=== PATIENT | female | born 1975 | race Two or more races ===

== ENCOUNTER 2020-06-22 15:53 | Outpatient (REF) | payer OTHER, SELFPAY ==
--- NOTE | 2020-06-22 | MM_ITS ---
EXAMINATION: MM SCREENING DIGITAL BREAST TOMOSYNTHESIS, BILATERAL CLINICAL INFORMATION: Screening. Asymptomatic. The lifetime risk of breast cancer based on the Tyrer-Cuzick Model is 7%. COMPARISON: Mammography: 06/17/2019, 06/05/2018, 04/11/2017 11/13/2016, 03/13/2016 TECHNIQUE: Digital breast tomosynthesis is performed in both the craniocaudal and mediolateral oblique views along with computer-aided detection (CAD). Synthesized 2D images are generated from the tomosynthesis. FINDINGS: There are scattered areas of fibroglandular density (ACR BI-RADS breast composition Category b). There are no significant masses, abnormal calcifications, or other abnormalities. Parenchymal pattern is similar to prior exams. Parenchymal asymmetries are stable. There is no developing density. MM/MM tomosynthesis screening BI IMPRESSION: No significant changes from prior studies. ASSESSMENT: BI-RADS 2: Benign RECOMMENDATION: Routine annual mammography screening. This patient's information was entered into a reminder system with a target due date for their next mammogram.
== END 2020-06-22 15:54 | disposition home or self-care (01) ==
LOC: HO.MAMMO 15:53
PROVIDERS: Visit Provider Internal Medicine
DX: Z12.31 Encounter for screening mammogram for malignant neoplasm of breast (principal)
CPT/HCPCS: 77063; 77067

== ENCOUNTER 2020-06-24 16:41 | Outpatient (REF) | payer OTHER, SELFPAY ==
[2020-06-24 17:48] LABS: MANUAL DIFF FLAG NO
[2020-06-24 17:49] LABS: Basophils Percent Auto 0.4 % (0-2); Eosinophils Percent Auto 0.7 % (0-4); Hemoglobin 11.7 g/dl (12.0-16.0); Imm Gran Abs Auto 0.01 X10*3/uL (0.00-0.03); Imm Gran Pct Auto 0.4 % (0.0-0.4); Lymphocytes Absolute Auto 0.9 X10*3/uL (1.2-4.9); Lymphocytes Percent Auto 32.5 % (20-40); Mean Corpuscular HGB Conc 32.5 g/dl (31.0-35.0); Mean Corpuscular Volume 89.1 fL (80-98); Monocytes Absolute Auto 0.2 X10*3/uL (0.1-1.2); Monocytes Percent Auto 7.6 % (2-11); Neutrophils Absolute Auto 1.6 X10*3/uL (2.0-8.3); Neutrophils Percent Auto 58.4 % (45-73); Platelet Count 190 X10*3/uL (160-400); Red Blood Count 4.04 X10*6/uL (4.20-5.50); Red Cell Distribution Width 13.2 % (11.0-16.0); White Blood Count 2.8 X10*3/uL (4.8-10.8)
[2020-06-24 18:17] LABS: Alanine Aminotransferase 29 U/L (0-31); Alkaline Phosphatase 62 U/L (39-117); Anion Gap 12 (12-20); Aspartate Amino Transferase 35 U/L (5-31); Bilirubin Total 0.5 mg/dL (0.0-1.0); Blood Urea Nitrogen 12 mg/dL (9-16); C Reactive Protein 0.19 mg/dL (< or = 0.50); Calcium 8.4 mg/dL (8.4-10.2); Carbon Dioxide 24 mmol/L (22-29); Chloride 105 mmol/L (96-108); Estimated Glomerular Filt Rate > 60; Glucose Random 78 mg/dL (60-115); Potassium 3.9 mmol/l (3.3-5.1); Sodium 137 mmol/L (135-145); Total Protein 7.1 g/dL (6.5-8.0)
[2020-06-24 19:29] LABS: Erythrocyte Sedimentation Rate 22 MM/HR (0-20)
[2020-06-25 13:32] LABS: Complement C3 112 mg/dL (83-193)
== END 2020-06-24 16:42 | disposition home or self-care (01) ==
LOC: HO.LABR 16:41
PROVIDERS: PCP Internal Medicine; Visit Provider Internal Medicine Rheumatology
DX: M32.19 Other organ or system involvement in systemic lupus erythematosus (principal); Z79.899 Other long term (current) drug therapy
CPT/HCPCS: 36415; 80053; 85025; 85652; 86140; 86160

== ENCOUNTER 2020-08-23 14:33 | Outpatient (REF) | payer OTHER, SELFPAY ==
[2020-08-24 08:28] LABS: BV Int Neg Control Negative (Negative); BV Int Pos Control Positive (Positive)
== END 2020-08-23 14:34 | disposition home or self-care (01) ==
LOC: HO.LAB 14:33
PROVIDERS: PCP Internal Medicine; Referring Provider Internal Medicine; Visit Provider Obstetrics & Gynecology
DX: Z01.419 Encounter for gynecological examination (general) (routine) without abnormal findings (principal); N89.8 Other specified noninflammatory disorders of vagina
CPT/HCPCS: 81003; 87480; 87510; 87660

== ENCOUNTER 2020-09-16 | Outpatient (REF) | payer OTHER, SELFPAY ==
[2020-09-16 19:30] LABS: Erythrocyte Sedimentation Rate 17 MM/HR (0-20)
[2020-09-20 21:02] LABS: Complement C3 105 mg/dL (83-193)
== END 2020-09-16 00:01 ==
LOC: HO.LABR
PROVIDERS: Visit Provider Internal Medicine Rheumatology
DX: M32.19 Other organ or system involvement in systemic lupus erythematosus (principal); Z79.899 Other long term (current) drug therapy
CPT/HCPCS: 36415; 85652; 86160

== ENCOUNTER 2020-10-09 09:32 | Outpatient (REF) | payer OTHER, SELFPAY ==
[2020-10-09 09:51] LABS: MANUAL DIFF FLAG NO
[2020-10-09 10:02] LABS: Eosinophils Percent Auto 0.4 % (0-4); Hematocrit 40.1 % (37-47); Hemoglobin 13.5 g/dl (12.0-16.0); Lymphocytes Absolute Auto 0.8 X10*3/uL (1.2-4.9); Lymphocytes Percent Auto 27.6 % (20-40); Mean Corpuscular HGB Conc 33.7 g/dl (31.0-35.0); Mean Corpuscular Hemoglobin 30.6 pg (27.0-33.0); Mean Corpuscular Volume 90.9 fL (80-98); Mean Platelet Volume 9.8 fL (9.4-12.3); Monocytes Absolute Auto 0.2 X10*3/uL (0.1-1.2); Monocytes Percent Auto 8.2 % (2-11); Neutrophils Absolute Auto 1.8 X10*3/uL (2.0-8.3); Neutrophils Percent Auto 63.8 % (45-73); Platelet Count 154 X10*3/uL (160-400); Red Blood Count 4.41 X10*6/uL (4.20-5.50); Red Cell Distribution Width 11.8 % (11.0-16.0); White Blood Count 2.8 X10*3/uL (4.8-10.8)
[2020-10-09 10:34] LABS: Alanine Aminotransferase 16 U/L (0-31); Albumin Level 3.9 g/dL (3.5-5.0); Alkaline Phosphatase 64 U/L (39-117); Anion Gap 10 (12-20); Aspartate Amino Transferase 23 U/L (5-31); Bilirubin Total 0.7 mg/dL (0.0-1.0); Blood Urea Nitrogen 18 mg/dL (9-16); C Reactive Protein 0.27 mg/dL (< or = 0.50); Calcium 8.7 mg/dL (8.4-10.2); Carbon Dioxide 26 mmol/L (22-29); Chloride 108 mmol/L (96-108); Estimated Glomerular Filt Rate > 60; Potassium 4.2 mmol/L (3.3-5.1); Sodium 140 mmol/L (135-145); Total Protein 6.9 g/dL (6.5-8.0)
[2020-10-09 11:52] LABS: Glucose Random 57 mg/dL (60-115)
[2020-10-09 14:05] LABS: Estimated Average Glucose 97 mg/dL
== END 2020-10-09 09:33 | disposition home or self-care (01) ==
LOC: HO.LABR 09:32
PROVIDERS: PCP Internal Medicine; Visit Provider Internal Medicine Rheumatology
DX: M32.19 Other organ or system involvement in systemic lupus erythematosus (principal); Z79.899 Other long term (current) drug therapy
CPT/HCPCS: 36415; 80053; 83036; 85025; 86140

== ENCOUNTER 2020-12-22 15:19 | Outpatient (REF) | payer OTHER, SELFPAY ==
[2020-12-22 16:04] LABS: MANUAL DIFF FLAG NO
[2020-12-22 16:08] LABS: Hematocrit 35.9 % (37-47); Hemoglobin 11.8 g/dl (12.0-16.0); Lymphocytes Absolute Auto 0.9 X10*3/uL (1.2-4.9); Lymphocytes Percent Auto 29.6 % (20-40); Mean Corpuscular HGB Conc 32.9 g/dl (31.0-35.0); Mean Corpuscular Hemoglobin 29.8 pg (27.0-33.0); Mean Corpuscular Volume 90.7 fL (80-98); Mean Platelet Volume 9.5 fL (9.4-12.3); Monocytes Absolute Auto 0.3 X10*3/uL (0.1-1.2); Monocytes Percent Auto 8.7 % (2-11); Neutrophils Absolute Auto 1.7 X10*3/uL (2.0-8.3); Neutrophils Percent Auto 60.7 % (45-73); Platelet Count 192 X10*3/uL (160-400); Red Blood Count 3.96 X10*6/uL (4.20-5.50); Red Cell Distribution Width 11.5 % (11.0-16.0); White Blood Count 2.9 X10*3/uL (4.8-10.8)
[2020-12-22 16:28] LABS: Alanine Aminotransferase 24 U/L (0-31); Albumin Level 3.9 g/dL (3.5-5.0); Alkaline Phosphatase 68 U/L (39-117); Anion Gap 12 (12-20); Aspartate Amino Transferase 26 U/L (5-31); Bilirubin Total 0.5 mg/dL (0.0-1.0); Blood Urea Nitrogen 17 mg/dL (9-16); C Reactive Protein 0.19 mg/dL (< or = 0.50); Carbon Dioxide 26 mmol/L (22-29); Chloride 104 mmol/L (96-108); Estimated Glomerular Filt Rate > 60; Glucose Random 71 mg/dL (60-115); Potassium 3.8 mmol/L (3.3-5.1); Sodium 138 mmol/L (135-145); Total Protein 6.7 g/dL (6.5-8.0)
[2020-12-22 16:54] LABS: Erythrocyte Sedimentation Rate 17 MM/HR (0-20)
[2020-12-23 11:27] LABS: Complement C3 101 mg/dL (83-193)
== END 2020-12-22 15:20 | disposition home or self-care (01) ==
LOC: HO.LABR 15:19
PROVIDERS: PCP Internal Medicine; Visit Provider Internal Medicine Rheumatology
DX: M32.19 Other organ or system involvement in systemic lupus erythematosus (principal); Z79.899 Other long term (current) drug therapy
CPT/HCPCS: 36415; 80053; 85025; 85652; 86140; 86160

== ENCOUNTER 2021-01-05 09:13 | Outpatient (REF) | payer OTHER, SELFPAY ==
[2021-01-05 10:25] LABS: Glucose Urine UA NEG (NEG); Leukocyte Esterase Urine 1+ (NEG); Nitrite Urine POS (NEG); UACC Culture Trigger YES; Urine Blood TRACE (NEG); Urine Ketones NEG (NEG); Urine Protein NEG (NEG-TRACE)
[2021-01-05 10:28] LABS: Appearance Urine HAZY; Color Urine YELLOW
[2021-01-05 11:11] LABS: Bacteria Urine 4+ /LPF; RBC Urine 0-2 /HPF (0); Renal Epithelial Cells Urine TRACE /LPF; Squamous Epithelial Cell Urine TRACE /LPF; WBC Clumps Urine NOTED; WBC Urine 30-49 /HPF (0-4)
== END 2021-01-05 09:14 | disposition home or self-care (01) ==
LOC: HO.LAB 09:13
PROVIDERS: PCP Internal Medicine; Visit Provider Internal Medicine
DX: R30.0 Dysuria (principal)
CPT/HCPCS: 81001; 81003; 87086; 87088; 87186

== ENCOUNTER 2021-07-13 16:41 | Outpatient (REF) | payer OTHER, SELFPAY ==
[2021-07-13 17:16] LABS: Eosinophils Percent Auto 0.8 % (0-4); Hematocrit 34.8 % (37.0-47.0); Hemoglobin 11.4 g/dl (12.0-16.0); Lymphocytes Absolute Auto 0.9 X10*3/uL (1.2-4.9); Lymphocytes Percent Auto 36.1 % (20-40); MANUAL DIFF FLAG SCAN; Mean Corpuscular HGB Conc 32.8 g/dl (31.0-35.0); Mean Corpuscular Hemoglobin 28.9 pg (27.0-33.0); Mean Corpuscular Volume 88.1 fL (80.0-98.0); Mean Platelet Volume 9.6 fL (9.4-12.3); Monocytes Absolute Auto 0.3 X10*3/uL (0.1-1.2); Monocytes Percent Auto 10.7 % (2-11); Neutrophils Absolute Auto 1.3 x10*3/uL (2.0-8.3); Neutrophils Percent Auto 52.4 % (45-73); Platelet Count 192 X10*3/uL (160-400); Red Blood Count 3.95 X10*6/uL (4.20-5.50); Red Cell Distribution Width 11.9 % (11.0-16.0); SCAN SMEAR FLAG 1
[2021-07-13 17:48] LABS: Alanine Aminotransferase 46 U/L (0-31); Alkaline Phosphatase 67 U/L (39-117); Anion Gap 8 (12-20); Aspartate Amino Transferase 34 U/L (5-31); Bilirubin Total 0.4 mg/dL (0.0-1.0); Blood Urea Nitrogen 15 mg/dL (9-16); C Reactive Protein 0.24 mg/dL (< or = 0.50); Calcium 9.2 mg/dL (8.4-10.2); Carbon Dioxide 26 mmol/L (22-29); Chloride 108 mmol/L (96-108); Estimated Glomerular Filt Rate > 60; Glucose Random 89 mg/dL (60-115); Potassium 3.6 mmol/L (3.3-5.1); Sodium 138 mmol/L (135-145)
[2021-07-13 17:54] LABS: White Blood Count 2.4 X10*3/uL (4.8-10.8)
[2021-07-13 18:21] LABS: Erythrocyte Sedimentation Rate 28 MM/HR (0-20)
[2021-07-13 18:50] LABS: SLIDE REVIEW VERIFIED
[2021-07-14 13:55] LABS: Complement C3 106 mg/dL (83-193)
[2021-07-20 11:55] LABS: DNAds, Crithidia Antibody Negative (Negative)
== END 2021-07-13 16:42 | disposition home or self-care (01) ==
LOC: HO.LAB 16:41
PROVIDERS: PCP Internal Medicine; Visit Provider Internal Medicine Rheumatology
DX: M32.19 Other organ or system involvement in systemic lupus erythematosus (principal); D70.8 Other neutropenia; Z79.899 Other long term (current) drug therapy
CPT/HCPCS: 36415; 80053; 85025; 85652; 86140; 86160; 86255

== ENCOUNTER 2021-07-26 15:34 | Outpatient (REF) | payer OTHER, SELFPAY ==
--- NOTE | ~2021-07-26 | MM_ITS ---
EXAMINATION: MM SCREENING DIGITAL BREAST TOMOSYNTHESIS, BILATERAL CLINICAL INFORMATION: Screening. Asymptomatic. The lifetime risk of breast cancer based on the Tyrer-Cuzick Model is 5.8%. COMPARISON: Mammography: 06/22/2020 and studies dating back to 10/19/2010 TECHNIQUE: Digital breast tomosynthesis is performed in both the craniocaudal and mediolateral oblique views along with computer-aided detection (CAD). Synthesized 2-D images are generated from the tomosynthesis. FINDINGS: There are scattered areas of fibroglandular density (ACR BI-RADS breast composition Category b). There is a stable parenchymal pattern within the left breast with no new abnormal dominant mass or suspicious grouping of microcalcifications. Within the superior aspect of the right breast approximately 8 cm from nipple, there is a region of architectural distortion which is slightly more prominent than on prior studies and for which spot compression view and possible ultrasound is recommended. MM/MM tomosynthesis screening BI IMPRESSION: Asymmetric density superior aspect of the right breast for further evaluation. ASSESSMENT: BI-RADS 0: Incomplete - Need Additional Imaging Evaluation. RECOMMENDATION: 1. Additional views of the right breast. 2. Targeted ultrasound if warranted after review of the additional views. 3. Radiology department staff will contact the patient for additional imaging.
== END 2021-07-26 15:35 | disposition home or self-care (01) ==
LOC: HO.MAMMO 15:34
PROVIDERS: Visit Provider Internal Medicine
DX: Z12.31 Encounter for screening mammogram for malignant neoplasm of breast (principal)
CPT/HCPCS: 77063; 77067

== ENCOUNTER 2021-08-05 10:20 | Outpatient (REF) | payer OTHER, SELFPAY ==
--- NOTE | ~2021-08-05 | US_ITS ---
EXAMINATION: US DIAGNOSTIC ULTRASOUND BREAST, RIGHT CLINICAL INFORMATION: Asymmetric density. COMPARISON: Mammography of same day and studies dating back to April 17, 2011. Ultrasound examination of October 19, 2010. TECHNIQUE: Ultrasound of the breast is performed with real-time vick scale imaging and color Doppler. FINDINGS: Targeted right breast ultrasound evaluation of did not demonstrate any abnormal cystic or solid mass. No region of abnormal distal sound shadowing appreciated. No edematous change within the tissues is seen. Results are discussed with the patient at time of visit. US/US breast RT limited IMPRESSION: Stable appearance of the right breast with no specific mammographic or ultrasound findings to suggest malignancy. ASSESSMENT: BI-RADS 1: Negative RECOMMENDATION: Routine annual mammography screening. This patient's information was entered into a reminder system with a target due date for their next mammogram.
--- NOTE | ~2021-08-05 | MM_ITS ---
EXAMINATION: MM DIAGNOSTIC DIGITAL BREAST TOMOSYNTHESIS, RIGHT CLINICAL INFORMATION: Asymmetric density superior aspect right breast COMPARISON: Mammography: 07/26/2021 and studies dating back to 04/17/2011 TECHNIQUE: Digital breast tomosynthesis is performed. 2D images are generated from the tomosynthesis. The following views are obtained: Full-field 90 degree mediolateral view as well as spot compression craniocaudal and mediolateral oblique projections. FINDINGS: There are scattered areas of fibroglandular density (ACR BI-RADS breast composition Category b). There is partial effacement of the density present giving it the appearance similar to previous studies. There remains some dense parenchyma present. Targeted right breast ultrasound evaluation did not demonstrate any abnormal cystic or solid mass. No region of abnormal distal sound shadowing appreciated. No edematous change within the tissues is seen. Results are discussed with the patient at time of visit. MM/MM tomosynthesis added views R IMPRESSION: Stable appearance of the right breast with no specific mammographic or ultrasound findings to suggest malignancy. ASSESSMENT: BI-RADS 1: Negative RECOMMENDATION: Routine annual mammography screening. This patient's information was entered into a reminder system with a target due date for their next mammogram.
== END 2021-08-05 10:21 | disposition home or self-care (01) ==
LOC: HO.MAMMO 10:20
PROVIDERS: Visit Provider Internal Medicine
DX: R92.2 Inconclusive mammogram (principal)
CPT/HCPCS: 76642; 77061; 77065

== ENCOUNTER 2021-08-15 09:16 | Emergency (ER) | payer OTHER, SELFPAY ==
--- NOTE | ~2021-08-15 | CT_ITS ---
EXAMINATION: CT ABDOMEN AND PELVIS WITHOUT CONTRAST CLINICAL INFORMATION: Left flank pain. History of urinary tract infection. COMPARISON: None TECHNIQUE: Multidetector volumetric imaging was performed from the superior aspect of the liver through the pubic symphysis. Sagittal and coronal reformatted images were obtained on the technologist's workstation. This CT examination was performed using dose optimization techniques as appropriate, variously including the following: *Automated exposure control *Adjustment of mA and/or kV according to patient size (this includes techniques or standardized protocols for targeted exams where dose is matched to indication/reason for exam; i.e. extremities or head) *Use of iterative reconstruction technique DLP: 434 mGy-cm FINDINGS: LUNG BASES: The visualized lung bases are unremarkable. LIVER, GALLBLADDER, AND BILIARY TREE: The liver is normal in size, shape, and attenuation. No focal hepatic lesion or biliary ductal dilatation is present. The gallbladder is unremarkable with no evidence of radiopaque gallstones, gallbladder wall thickening, or obvious pericholecystic inflammatory changes. PANCREAS: Unremarkable. SPLEEN: Unremarkable. ADRENAL GLANDS: Unremarkable. KIDNEYS AND URETERS: The left kidney is larger than the right. The left kidney measures 11.2 and the right 8.5 cm in length. There is fat stranding seen surrounding the left kidney. Findings are questionable for left sided pyelonephritis. No left renal or ureteral stone or hydronephrosis is seen. There is question of a tiny 1 mm stone in the upper pole of the left kidney. BLADDER: Not optimally distended. GASTROINTESTINAL TRACT: The small and large bowel are unremarkable. The appendix is unremarkable. ABDOMINAL WALL: No significant hernia is appreciated. LYMPH NODES: There are small retroperitoneal lymph nodes. No enlarged lymph nodes are seen. There is no ascites. VASCULAR: Unremarkable. PELVIC VISCERA: Unremarkable. OSSEOUS STRUCTURES: There is a 1 cm sclerotic lesion in the L3 vertebral body probably representing a bone island. CT/CT abdomen pelvis wo IV con IMPRESSION: The left kidney is larger than the right and there is asymmetric left perinephric fat stranding. Findings are questionable for pyelonephritis. No left renal stone or hydronephrosis seen. Question tiny 1 mm right upper pole renal stone. Fleischner guidelines were followed.
[2021-08-15 09:49] VITALS: BP 128/98; PULSE 116; RESP 18; TEMP 37.7; O2SAT 100; BMI 23.9
--- NOTE | 2021-08-15 09:49 | ED_ITS ---
HPI - Abdominal Pain General Chief Complaint: Abdominal Pain Stated Complaint: L SIDE PAIN Time Seen by Provider: 08/15/21 09:48 Source: patient Mode of arrival: ambulatory Limitations: no limitations History of Present Illness HPI narrative: 46-year-old female currently on Macrobid for UTI started on Sunday by Urgent Care presenting to the ED with complaints of left abdominal/ left flank / left back pain worsened after she started the Macrobid on Sunday. Reports associated cloudy/ fall order to urine and white colored discharge. Also reports intermittent lightheadedness, subjective fever/chills and nausea. Denies any measured fevers, changes in vision, neck pain /stiffness, chest pain or shortness of breath, paresthesias, dyspnea on exertion, orthopnea, palpitations, vomiting, thoughts of STD, hematuria, urinary incontinence or retention, bowel incontinence or retention, rashes, recent falls or trauma or any other symptoms complaints or concerns at this time. MD elicited complaint: abdominal pain and flank pain Pertinent past history: other ( Currently diagnosed with UTI on Macrobid since Sunday) Onset (ago): day(s) (2) Pain Consistency: constant Location: LUQ, LLQ and L flank Severity: moderate Quality: aching and sharp Radiation: back Exacerbating factors: other ( urination) Relieving factors: nothing Associated symptoms: nausea, fever ( subjective), chills and dysuria Related Data Home Medications Medication Instructions Recorded Confirmed cyanocobalamin (vitamin B-12) 1,000 mcg PO DAILY 08/23/20 1,000 mcg tablet ferrous sulfate 325 mg (65 mg 325 mg PO BID 08/23/20 iron) tablet hydroxychloroquine 200 mg tablet 200 mg PO BID 08/23/20 (Plaquenil) Previous Rx's Medication Instructions Recorded amoxicillin 500 mg tablet 500 mg PO BID 7 Days #14 tab 07/23/20 metronidazole 500 mg tablet 500 mg PO BID 7 Days #14 tab 08/24/20 (Flagyl) metronidazole 500 mg tablet 500 mg PO BID 7 Days #14 tab 09/15/20 (Flagyl) sulfamethoxazole 800 1 tab PO BID #14 tab 01/06/21 mg-trimethoprim 160 mg tablet (Bactrim DS) acetaminophen 500 mg tablet 1,000 mg PO QID PRN #14 tab 08/15/21 (Tylenol Extra Strength) cefpodoxime 200 mg tablet 200 mg PO BID 14 Days #28 tab 08/15/21 ibuprofen 800 mg tablet 800 mg PO Q8H PRN #14 tab 08/15/21 ondansetron HCl 4 mg tablet 4 mg PO Q8H PRN #14 tab 08/15/21 (Zofran) Allergies Allergy/AdvReac Type Severity Reaction Status Date / Time No Known Allergies Allergy Verified 08/23/20 14:48 Review of Systems Review of Systems Constitutional : + Subjective Fever, + Chills, No Night Sweats, No Fatigue, No Malaise Cardiovascular : No Chest Pain, No SOB Respiratory : No Cough, No Sputum, No Wheezing, No Dyspnea Gastrointestinal : + Nausea, + abd pain, No Vomiting, No Diarrhea, No Hematochezia, No Melena Genitourinary : + Flank pain, + Dysuria, No irregular bleeding, No Urinary Frequency, No Hematuria,No Urinary Incontinence, No Urgency Musculoskeletal : No joint pain, No Myalgias, No Joint Swelling Skin : No Skin Lesions, No rash Neuro : No Weakness, No Numbness, No Paresthesias, No Loss of Consciousness, No Dizziness, No Headache Heme/Lymph: No Lymphadenopathy Endocrine : No Temperature Intolerance denies any thoughts of STDs. Yes all other systems are reviewed and are negative Physical Exam Vital Signs: Vital Signs: Last Vital Signs Temp 98.2 F 08/15/21 13:36 Pulse 87 08/15/21 13:36 Resp 18 08/15/21 13:36 BP 108/64 08/15/21 13:36 Pulse Ox 99 08/15/21 13:36 BMI result Body Mass Index 23.9 vital signs have been reviewed as normal and appeared to be correct. Blood pressure 128/98. Heart rate 116 Respiration rate normal. Temperature normal. Oxygen saturation normal. Appearance: Alert. Oriented X3. No acute distress. Head: Normal external exam. Normocephalic. Eyes: PERRLA. EOMI. Conjunctiva and sclera normal. Eyelids normal. ENT: Pharynx normal. Uvula midline. Moist mucous membranes. No trismus noted. No drooling noted. No muffled voice noted. Neck: Normal inspection. Neck supple. FROM. No adenopathy. No meningeal signs. CVS: Normal heart rate and rhythm. Heart sound normal. No murmurs noted. Pulses normal throughout. Respiratory: No respiratory distress. Painless inspiration. Breath sounds normal. No wheezes/rales/rhonchi noted. Chest nontender. No accessory muscle usage noted or decreased air movement noted. Abdomen: Soft and mild tenderness up patient to left upper quadrant/ left lower quadrant/ left flank. Nondistended. No guarding. No rigidity. Bowel sounds normal in all 4 quadrants. No distention noted. No organomegaly noted. No visible injury noted. No rebound tenderness. Negative Rovsing sign. Negative obturator's sign. Negative psoas sign. Negative Hameed sign. Back: + left CVA tenderness. No Right CVAT noted. Full range of motion noted. Full range of motion. No step-offs or deformities noted. No fluctuance/induration/ rashes or signs of infection noted. Skin: Skin warm and dry. Normal skin color. Normal skin turgor. No rashes/lesions/lacerations noted. Extremities: Extremities exhibit normal range of motion. Extremities nontender. Neuro: Oriented X 3. No motor deficit. No sensory deficit. Reflexes normal. Normal steady gait. Course Course Course Narrative: 9:50am Quick assessment. Patient alert and oriented x3. Vital signs are stable within normal limits. No deficits noted. Patient presenting to the ED with complaints left-sided back/flank/abdominal pain worsen since Sunday. Reports that she was seen at an urgent care and prescribed Macrobid and taking as prescribed for UTI and reports cloudy/foul order to urine. With white colored discharge. She also reports intermittent dizziness/lightheadedness and subjective fevers/chills. Denies any other symptoms. At this time will obtain labs, UA, UHCG patient will be sent back to the waiting room at this time and will be called back when there is a room available. Patient understands agrees with this plan. Reevaluation(s) Reevaluation #1: - Labs were obtained in triage and anion gap 10 otherwise all other labs are within normal limits. UA revealed +1 blood and 5-9 white blood cells negative nitrates and negative . - CT scan of abdomen and pelvis without IV contrast revealed pyelonephritis although no left renal stone or hydronephrosis noted. Tiny 1 mm right upper pole renal stone along with a bone island to her lumbar spine otherwise no other acute processes. therefore I printed out the results and gave it to the patient. Explained to her that she will have to follow up with her primary care provider regarding the bone island. - Therefore at this time blood cultures and lactic acid ordered. Will provide L of IV fluids and 1 g of Rocephin then re-evaluate for possible admission versus discharge. Time: 14:30 Reevaluation #2: - Lactic acid 0.6. Patient is eating at this time requested to eat. Therefore due to patient able to eat, not having an elevated white blood cell count and lactic acid being within normal limits will DC home with antibiotics and instructions to return if she is unable to tolerate p.o. and to follow-up with primary care provider otherwise and to return if any new or w orsening symptoms. Patient and family at bedside understands agrees this plan. Time: 14:44 MDM - Abdominal Pain Medical Records Attestation: I reviewed the patient's medical records. Lab Data Attestation: I reviewed the patient's lab results. Result diagrams: 08/15/21 10:06 08/15/21 10:06 Labs: Lab Results 08/15/21 08/15/21 08/15/21 Range/Units 10:01 10:01 10:06 WBC 5.9 (4.8-10.8) X10*3/uL RBC 4.38 (4.20-5.50) X10*6/uL Hgb 12.4 (12.0-16.0) g/dl Hct 38.6 (37.0-47.0) % MCV 88.1 (80.0-98.0) fL MCH 28.3 (27.0-33.0) pg MCHC 32.1 (31.0-35.0) g/dl RDW 12.5 (11.0-16.0) % Plt Count 196 (160-400) X10*3/uL MPV 9.6 (9.4-12.3) fL Immature Gran % (Auto) 0.3 (0.0-0.4) % Neut % (Auto) 81.9 H (45-73) % Lymph % (Auto) 10.3 L (20-40) % [place] % (Auto) 7.3 (2-11) % Eos % (Auto) 0.0 (0-4) % Baso % (Auto) 0.2 (0-2) % Lymph # (Auto) 0.6 L (1.2-4.9) X10*3/uL [place] # (Auto) 0.4 (0.1-1.2) X10*3/uL Eos # (Auto) 0.0 (0.0-0.4) X10*3/uL Baso # (Auto) 0.0 (0.0-0.2) X10*3/uL Abs Immat Gran (auto) 0.02 (0.00-0.03) X10*3/uL Absolute Neuts (auto) 4.9 (2.0-8.3) x10*3/uL Absolute Nucleated RBC 0.000 (0.0-0.012) X10*3/uL Nucleated RBC % (auto) 0.0 (0.0-0.2) /100WBC Sodium (135-145) mmol/L Potassium (3.3-5.1) mmol/L Chloride (96-108) mmol/L Carbon Dioxide (22-29) mmol/L Anion Gap (12-20) BUN (9-16) mg/dL Creatinine (0.5-1.4) mg/dL Estim Creat Clear Calc Estimated GFR Random Glucose (60-115) mg/dL Lactic Acid (0.5-2.0) mmol/L Calcium (8.4-10.2) mg/dL Magnesium (1.6-2.6) mg/dL Total Bilirubin (0.0-1.0) mg/dL AST (5-31) U/L ALT (0-31) U/L Alkaline Phosphatase (39-117) U/L Total Protein (6.5-8.0) g/dL Albumin (3.5-5.0) g/dL Urine Color YELLOW Urine Appearance HAZY Urine pH 6.0 (5.0-8.0) Ur Specific [place] >= 1.030 H (1.005-1.025) Urine Protein TRACE (NEG-TRACE) MG/DL Urine Glucose (UA) NEG (NEG) MG/DL Urine Ketones NEG (NEG) MG/DL Urine Blood 1+ H (NEG) Urine Nitrite NEG (NEG) Ur Leukocyte Esterase NEG (NEG) Urine RBC 1-4 (0) /HPF Urine WBC 5-9 H (0-4) /HPF Ur Squamous Epith Cells 1+ /LPF Urine Bacteria NONE /LPF Urine Mucus 1+ /LPF Urine Test NEGATIVE (NEGATIVE) 08/15/21 08/15/21 Range/Units 10:06 13:48 WBC (4.8-10.8) X10*3/uL RBC (4.20-5.50) X10*6/uL Hgb (12.0-16.0) g/dl Hct (37.0-47.0) % MCV (80.0-98.0) fL MCH (27.0-33.0) pg MCHC (31.0-35.0) g/dl RDW (11.0-16.0) % Plt Count (160-400) X10*3/uL MPV (9.4-12.3) fL Immature Gran % (Auto) (0.0-0.4) % Neut % (Auto) (45-73) % Lymph % (Auto) (20-40) % [place] % (Auto) (2-11) % Eos % (Auto) (0-4) % Baso % (Auto) (0-2) % Lymph # (Auto) (1.2-4.9) X10*3/uL [place] # (Auto) (0.1-1.2) X10*3/uL Eos # (Auto) (0.0-0.4) X10*3/uL Baso # (Auto) (0.0-0.2) X10*3/uL Abs Immat Gran (auto) (0.00-0.03) X10*3/uL Absolute Neuts (auto) (2.0-8.3) x10*3/uL Absolute Nucleated RBC (0.0-0.012) X10*3/uL Nucleated RBC % (auto) (0.0-0.2) /100WBC Sodium 139 (135-145) mmol/L Potassium 4.1 (3.3-5.1) mmol/L Chloride 108 (96-108) mmol/L Carbon Dioxide 25 (22-29) mmol/L Anion Gap 10 L (12-20) BUN 10 (9-16) mg/dL Creatinine 0.77 (0.5-1.4) mg/dL Estim Creat Clear Calc 73.9 Estimated GFR > 60 Random Glucose 100 (60-115) mg/dL Lactic Acid 0.6 (0.5-2.0) mmol/L Calcium 9.4 (8.4-10.2) mg/dL Magnesium 2.0 (1.6-2.6) mg/dL Total Bilirubin 0.6 (0.0-1.0) mg/dL AST 18 D (5-31) U/L ALT 9 (0-31) U/L Alkaline Phosphatase 72 (39-117) U/L Total Protein 7.8 (6.5-8.0) g/dL Albumin 4.0 (3.5-5.0) g/dL Urine Color Urine Appearance Urine pH (5.0-8.0) Ur Specific [place] (1.005-1.025) Urine Protein (NEG-TRACE) MG/DL Urine Glucose (UA) (NEG) MG/DL Urine Ketones (NEG) MG/DL Urine Blood (NEG) Urine Nitrite (NEG) Ur Leukocyte Esterase (NEG) Urine RBC (0) /HPF Urine WBC (0-4) /HPF Ur Squamous Epith Cells /LPF Urine Bacteria /LPF Urine Mucus /LPF Urine Test (NEGATIVE) Imaging Data CT scan abdomen pelvis without IV contrast: Attestation: I personally reviewed and interpreted this imaging study as follows: Radiologist's impression: FINDINGS: LUNG BASES: The visualized lung bases are unremarkable.? LIVER, GALLBLADDER, AND BILIARY TREE: The liver is normal in size, shape, and attenuation. No focal hepatic lesion or biliary ductal dilatation is present. The gallbladder is unremarkable with no evidence of radiopaque gallstones, gallbladder wall thickening, or obvious pericholecystic inflammatory changes.? PANCREAS: Unremarkable.? SPLEEN: Unremarkable.? ADRENAL GLANDS: Unremarkable.? KIDNEYS AND URETERS: The left kidney is larger than the right. The left kidney measures 11.2 and the right 8.5 cm in length. There is fat stranding seen surrounding the left kidney. Findings are questionable for left sided pyelonephritis. No left renal or ureteral stone or hydronephrosis is seen. There is question of a tiny 1 mm stone in the upper pole of the left kidney. ?BLADDER: Not optimally distended. GASTROINTESTINAL TRACT: The small and large bowel are unremarkable. The appendix is unremarkable.? ABDOMINAL WALL: No significant hernia is appreciated.? LYMPH NODES: There are small retroperitoneal lymph nodes. No enlarged lymph nodes are seen. There is no ascites. VASCULAR: Unremarkable. PELVIC VISCERA: Unremarkable.? OSSEOUS STRUCTURES: There is a 1 cm sclerotic lesion in the L3 vertebral body probably representing a bone island. CT/CT abdomen pelvis wo con IMPRESSION: The left kidney is larger than the right and there is asymmetric left perinephric fat stranding. Findings are questionable for pyelonephritis. No left renal stone or hydronephrosis seen. Question tiny 1 mm right upper pole renal stone.? ? Fleischner guidelines were followed. Critical Care Time Critical Care Time Critical Care Time: Yes Total Critical Care Time: 60 Attestation: I personally attest to this time spent taking care of the patient Discharge Plan Discharge Clinical Impression: Pyelonephritis, Calculus of right kidney, Bone island Patient Disposition: Home, Self-Care Instructions: Kidney Stones (ED), Kidney Infection (ED) Prescriptions: New ibuprofen 800 mg tablet 800 mg PO Q8H PRN (Reason: pain) Qty: 14 RF: 0 ondansetron HCl [Zofran] 4 mg tablet 4 mg PO Q8H PRN (Reason: nausea and vomiting) Qty: 14 RF: 0 acetaminophen [Tylenol Extra Strength] 500 mg tablet 1,000 mg PO QID PRN (Reason: fever or pain) Qty: 14 RF: 0 cefpodoxime 200 mg tablet 200 mg PO BID 14 Days Qty: 28 RF: 0 No Action amoxicillin 500 mg tablet 500 mg PO BID 7 Days Qty: 14 RF: 0 metronidazole [Flagyl] 500 mg tablet 500 mg PO BID 7 Days Qty: 14 RF: 0 metronidazole [Flagyl] 500 mg tablet 500 mg PO BID 7 Days Qty: 14 RF: 0 sulfamethoxazole-trimethoprim [Bactrim DS] 800-160 mg tablet 1 tab PO BID Qty: 14 RF: 0 ferrous sulfate 325 mg (65 mg iron) tablet 325 mg PO BID RF: 0 cyanocobalamin (vitamin B-12) 1,000 mcg tablet 1,000 mcg PO DAILY RF: 0 hydroxychloroquine [Plaquenil] 200 mg tablet 200 mg PO BID RF: 0 Referrals: Williams Winslow MD [Physician] - 2 days Deisy Pardo MD [Primary Care Provider] - 2 days Stand Alone Forms: Work/School Release Print Language: Ivorian [facility] Past Medical History Attestation statement: The following information was validated with the patient. Medical History Systemic lupus erythematosus Surgical History History of tubal ligation Family History Family History Mother Rheumatoid arthritis Stroke Hypertension Sister Rheumatoid arthritis Cervical cancer Paternal Grandfather Colon cancer Maternal Grandfather Colon cancer Prostate cancer Maternal Aunt Colon cancer Social History Social History Alcohol intake: current Alcohol intake frequency: a few times a week Patient Tobacco Use Status: Never used Tobacco Use of substances other than those prescribed or required for medical reasons: No Advance Directives: No Advance Directives Information Provided: Yes Patient : No Sexual orientation: Straight/Heterosexual Gender identity: Female
[2021-08-15] MEDS: Ibuprofen 600 MG TABLET PO (09:54)
[2021-08-15 10:09] LABS: MANUAL DIFF FLAG NO
[2021-08-15 10:15] LABS: Appearance Urine HAZY; Color Urine YELLOW; Glucose Urine UA NEG (NEG); Leukocyte Esterase Urine NEG (NEG); Nitrite Urine NEG (NEG); Specific Gravity - Urine >= 1.030 (1.005-1.025); UACC Culture Trigger NO; Urine Blood 1+ (NEG); Urine Ketones NEG (NEG); Urine Protein TRACE MG/DL (NEG-TRACE)
[2021-08-15 10:17] LABS: UPreg QC Valid YES; Urine Pregnancy NEGATIVE (NEGATIVE)
[2021-08-15 10:18] LABS: Basophils Percent Auto 0.2 % (0-2); Hematocrit 38.6 % (37.0-47.0); Hemoglobin 12.4 g/dl (12.0-16.0); Imm Gran Abs Auto 0.02 X10*3/uL (0.00-0.03); Imm Gran Pct Auto 0.3 % (0.0-0.4); Lymphocytes Absolute Auto 0.6 X10*3/uL (1.2-4.9); Lymphocytes Percent Auto 10.3 % (20-40); Mean Corpuscular HGB Conc 32.1 g/dl (31.0-35.0); Mean Corpuscular Hemoglobin 28.3 pg (27.0-33.0); Mean Corpuscular Volume 88.1 fL (80.0-98.0); Mean Platelet Volume 9.6 fL (9.4-12.3); Monocytes Absolute Auto 0.4 X10*3/uL (0.1-1.2); Monocytes Percent Auto 7.3 % (2-11); Neutrophils Absolute Auto 4.9 x10*3/uL (2.0-8.3); Neutrophils Percent Auto 81.9 % (45-73); Platelet Count 196 X10*3/uL (160-400); Red Blood Count 4.38 X10*6/uL (4.20-5.50); Red Cell Distribution Width 12.5 % (11.0-16.0); White Blood Count 5.9 X10*3/uL (4.8-10.8)
[2021-08-15 10:21] LABS: UACC CULT YES
[2021-08-15 10:22] LABS: Mucus Urine 1+ /LPF; Squamous Epithelial Cell Urine 1+ /LPF
[2021-08-15 10:26] LABS: Alanine Aminotransferase 9 U/L (0-31); Alkaline Phosphatase 72 U/L (39-117); Anion Gap 10 (12-20); Aspartate Amino Transferase 18 U/L (5-31); Bilirubin Total 0.6 mg/dL (0.0-1.0); Blood Urea Nitrogen 10 mg/dL (9-16); Calcium 9.4 mg/dL (8.4-10.2); Carbon Dioxide 25 mmol/L (22-29); Chloride 108 mmol/L (96-108); Creatinine Clr Calc Pharmacy 73.9; Estimated Glomerular Filt Rate > 60; Glucose Random 100 mg/dL (60-115); Potassium 4.1 mmol/L (3.3-5.1); Sodium 139 mmol/L (135-145); Total Protein 7.8 g/dL (6.5-8.0)
[2021-08-15 13:36] VITALS: BP 108/64; PULSE 87; RESP 18; TEMP 36.8; O2SAT 99
[2021-08-15 14:05] LABS: Lactic Acid 0.6 mmol/L (0.5-2.0)
[2021-08-15] MEDS: 0.9 % Sodium Chloride 1,000 ML 999 ML IVCONT (14:39)
[2021-08-15] MEDS: cefTRIAXone sodium 1 GM in 0.9 % Sodium Chloride 50 ML IV (14:40)
[2021-08-15 14:48] VITALS: BP 106/52; PULSE 75; RESP 18; O2SAT 100
--- NOTE | 2021-08-16 04:32 | PC.NURSE ---
CALLED AND LEFT MESSAGE ON PATIENTS CELL PHONE TO RETURN TO THE DEPARTMENT FOR ABNORMAL LABS. DR. JOHNSON INSTRUCTING REAGAN RN TO DO SO. PATIENT HAS NOT CALLED BACK THE DEPARTMENT AWAITING RETURN CALL/VISIT
== END 2021-08-15 15:45 | disposition home or self-care (01) ==
PROVIDERS: Physician Assistant Medical; Emergency Provider Emergency Medicine; PCP Internal Medicine
DX: N12 Tubulo-interstitial nephritis, not specified as acute or chronic (principal); M89.8X8 Other specified disorders of bone, other site; N20.0 Calculus of kidney; R10.9 Unspecified abdominal pain
CPT/HCPCS: 36415; 74176; 80053; 81001; 81025; 83605; 83735; 85025; 87040; 87077; 87086; 87186; 87205; 96365; 99284; 99291; J0696

== ENCOUNTER 2021-08-16 05:02 | Inpatient (IN) | payer OTHER, SELFPAY ==
[2021-08-16 05:08] VITALS: BP 114/80; PULSE 92; RESP 20; TEMP 36.9; O2SAT 99; BMI 23.8
--- NOTE | 2021-08-16 05:25 | ED_ITS ---
HPI - General Adult General Chief complaint: General Medical Stated complaint: Positive Blood Cultures Time Seen by Provider: 08/16/21 05:25 Source: patient Mode of arrival: ambulatory Limitations: no limitations History of Present Illness HPI narrative: Patient with dysuria frequency for last 4 [facility] started on Macrobid was seen here yesterday as patient still have the left flank pain and nausea workup showed left perinephric stranding with normal lactic acid normal CBC count patient was started on cefpodoxime and discharged home patient was called to come to the ER as blood culture grew Gram- negative rods. Patient is still complaining of pain in the left flank area with chills and low-grade fever. Patient is on hydroxy quinolone for lupus Related Data Home Medications Medication Instructions Recorded Confirmed cyanocobalamin (vitamin B-12) 1,000 mcg PO DAILY 08/23/20 1,000 mcg tablet ferrous sulfate 325 mg (65 mg 325 mg PO BID 08/23/20 iron) tablet hydroxychloroquine 200 mg tablet 200 mg PO BID 08/23/20 (Plaquenil) Previous Rx's Medication Instructions Recorded amoxicillin 500 mg tablet 500 mg PO BID 7 Days #14 tab 07/23/20 metronidazole 500 mg tablet 500 mg PO BID 7 Days #14 tab 08/24/20 (Flagyl) metronidazole 500 mg tablet 500 mg PO BID 7 Days #14 tab 09/15/20 (Flagyl) sulfamethoxazole 800 1 tab PO BID #14 tab 01/06/21 mg-trimethoprim 160 mg tablet (Bactrim DS) acetaminophen 500 mg tablet 1,000 mg PO QID PRN #14 tab 08/15/21 (Tylenol Extra Strength) cefpodoxime 200 mg tablet 200 mg PO BID 14 Days #28 tab 08/15/21 ibuprofen 800 mg tablet 800 mg PO Q8H PRN #14 tab 08/15/21 ondansetron HCl 4 mg tablet 4 mg PO Q8H PRN #14 tab 08/15/21 (Zofran) Allergies Allergy/AdvReac Type Severity Reaction Status Date / Time No Known Allergies Allergy Verified 08/23/20 14:48 Review of Systems Review of Systems: Yes all other systems are reviewed and are negative PMFSH Past Medical History Medical History Systemic lupus erythematosus Surgical History History of tubal ligation Family History Family History Mother Rheumatoid arthritis Stroke Hypertension Sister Rheumatoid arthritis Cervical cancer Paternal Grandfather Colon cancer Maternal Grandfather Colon cancer Prostate cancer Maternal Aunt Colon cancer Social History Social History Alcohol intake: never Patient Tobacco Use Status: Never used Tobacco Use of substances other than those prescribed or required for medical reasons: No Advance Directives: No Advance Directives Information Provided: No Sexual orientation: Straight/Heterosexual Gender identity: Female Physical Exam Vital Signs: Vital Signs: Last Vital Signs Temp 98.4 F 08/16/21 05:08 Pulse 77 08/16/21 06:09 Resp 14 08/16/21 06:09 BP 112/62 08/16/21 06:09 Pulse Ox 96 08/16/21 06:09 BMI result Body Mass Index 23.8 Appearance: Alert. Oriented X3. No acute distress. Eyes: No pallor icterus ENT: Pharynx normal. Oral Mucosa moist Neck: Normal inspection. Neck supple. CVS: Normal heart rate and rhythm. Pulses normal. Respiratory: No respiratory distress. Equal air entry bilateral, no wheezing/rales/rhonchi Abdomen: Soft and nontender. Bowel sounds are present, no mass palpable, left CVA tenderness ++ Skin: Skin warm and dry. Normal skin color. Normal skin turgor. Extremities: No lower extremity edema. No calf tenderness Neuro: Oriented X 3. Medical Decision Making [facility] Narrative Medical decision making narrative: Patient immunocompromised on hydroxy quinolone for lupus with left flank pain with CT scan showing left perinephric stranding with Gram-negative bacteremia will admit for IV antibiotics no history of ESBL patient clinically not septic Lab Data Lab results reviewed: Yes I reviewed the patient's lab results. Result diagrams: 08/16/21 05:36 08/16/21 05:36 Labs: Lab Results 08/16/21 08/16/21 08/16/21 Range/Units 05:36 05:36 05:36 WBC 4.3 L (4.8-10.8) X10*3/uL RBC 4.12 L (4.20-5.50) X10*6/uL Hgb 11.7 L (12.0-16.0) g/dl Hct 36.5 L (37.0-47.0) % MCV 88.6 (80.0-98.0) fL MCH 28.4 (27.0-33.0) pg MCHC 32.1 (31.0-35.0) g/dl RDW 12.6 (11.0-16.0) % Plt Count 183 (160-400) X10*3/uL MPV 9.4 (9.4-12.3) fL Immature Gran % (Auto) 0.2 (0.0-0.4) % Neut % (Auto) 73.5 H (45-73) % Lymph % (Auto) 16.9 L (20-40) % [place] % (Auto) 9.0 (2-11) % Eos % (Auto) 0.2 (0-4) % Baso % (Auto) 0.2 (0-2) % Lymph # (Auto) 0.7 L (1.2-4.9) X10*3/uL [place] # (Auto) 0.4 (0.1-1.2) X10*3/uL Eos # (Auto) 0.0 (0.0-0.4) X10*3/uL Baso # (Auto) 0.0 (0.0-0.2) X10*3/uL Abs Immat Gran (auto) 0.01 (0.00-0.03) X10*3/uL Absolute Neuts (auto) 3.2 (2.0-8.3) x10*3/uL Absolute Nucleated RBC 0.000 (0.0-0.012) X10*3/uL Nucleated RBC % (auto) 0.0 (0.0-0.2) /100WBC Sodium 142 (135-145) mmol/L Potassium 3.8 (3.3-5.1) mmol/L Chloride 112 H (96-108) mmol/L Carbon Dioxide 23 (22-29) mmol/L Anion Gap 11 L (12-20) BUN 11 (9-16) mg/dL Creatinine 0.73 (0.5-1.4) mg/dL Estim Creat Clear Calc 74.5 Estimated GFR > 60 Random Glucose 96 (60-115) mg/dL Lactic Acid 0.5 (0.5-2.0) mmol/L Calcium 9.1 (8.4-10.2) mg/dL Discharge Plan Discharge Clinical Impression: Acute bacterial pyelonephritis, Bacteremia due to Gram-negative bacteria Patient Disposition: Admitted As Inpatient
[2021-08-16 05:42] LABS: Basophils Percent Auto 0.2 % (0-2); Eosinophils Percent Auto 0.2 % (0-4); Hematocrit 36.5 % (37.0-47.0); Hemoglobin 11.7 g/dl (12.0-16.0); Imm Gran Abs Auto 0.01 X10*3/uL (0.00-0.03); Imm Gran Pct Auto 0.2 % (0.0-0.4); Lymphocytes Absolute Auto 0.7 X10*3/uL (1.2-4.9); Lymphocytes Percent Auto 16.9 % (20-40); MANUAL DIFF FLAG NO; Mean Corpuscular HGB Conc 32.1 g/dl (31.0-35.0); Mean Corpuscular Hemoglobin 28.4 pg (27.0-33.0); Mean Corpuscular Volume 88.6 fL (80.0-98.0); Mean Platelet Volume 9.4 fL (9.4-12.3); Monocytes Absolute Auto 0.4 X10*3/uL (0.1-1.2); Neutrophils Absolute Auto 3.2 x10*3/uL (2.0-8.3); Neutrophils Percent Auto 73.5 % (45-73); Platelet Count 183 X10*3/uL (160-400); Red Blood Count 4.12 X10*6/uL (4.20-5.50); Red Cell Distribution Width 12.6 % (11.0-16.0); White Blood Count 4.3 X10*3/uL (4.8-10.8)
[2021-08-16] MEDS: 0.9 % Sodium Chloride 1,000 ML 999 ML IVCONT (05:43)
[2021-08-16] MEDS: cefTRIAXone sodium 1 GM in 0.9 % Sodium Chloride 50 ML IV (05:44)
[2021-08-16 05:54] LABS: Lactic Acid 0.5 mmol/L (0.5-2.0)
[2021-08-16 06:00] LABS: Anion Gap 11 (12-20); Blood Urea Nitrogen 11 mg/dL (9-16); Calcium 9.1 mg/dL (8.4-10.2); Carbon Dioxide 23 mmol/L (22-29); Chloride 112 mmol/L (96-108); Creatinine Clr Calc Pharmacy 74.5; Estimated Glomerular Filt Rate > 60; Glucose Random 96 mg/dL (60-115); Potassium 3.8 mmol/L (3.3-5.1); Sodium 142 mmol/L (135-145)
[2021-08-16 06:09] VITALS: BP 112/62; PULSE 77; RESP 14; O2SAT 96
[2021-08-16 07:47] LABS: COVID-19 Test Negative (Negative)
--- NOTE | 2021-08-16 09:37 | PM.IMHP ---
History of Present Illness Date of Service: 08/16/21 Chief Complaint: Bacteremia This is a 46 yo F with a PMH of Lupus on Hydroxychlorquin who was called back to [facility] after her blood cultures were found to be positive. The patient reports that she began having symptoms of a UTI (dysuria, frequency, flank pain and fevers) about 5 days prior to admission. She went to an urgent care on Sunday (3 days prior to admission) where she was diagnosed with a UTI and was treated with Macrobid. She reports that she began having worsening flank(left sided) pain with fevers as high as 101 and so she presented to [facility] ED on 08/15/21. SHe was worked up with a CT scan which showed L-sided pyelonephritis. She was treated with IVF, IV rocephin and cultures were drawn. She had no fever, negative lactate and normal WBC count and was therefore discharged home. However, when 1/2 blood cultures turned positive, she was called back to the ED. She will now be admitted for treatment of gram negative bacteremia. Review of Systems Review of Systems: negative except HPI [facility] Medical History Systemic lupus erythematosus Family History Mother Rheumatoid arthritis Stroke Hypertension Sister Rheumatoid arthritis Cervical cancer Paternal Grandfather Colon cancer Maternal Grandfather Colon cancer Prostate cancer Maternal Aunt Colon cancer Surgical History History of tubal ligation Social History Alcohol intake: never Patient Tobacco Use Status: Never used Tobacco Use of substances other than those prescribed or required for medical reasons: No Advance Directives: No Advance Directives Information Provided: No Sexual orientation: Straight/Heterosexual Gender identity: Female Meds Allergies Allergy/AdvReac Type Severity Reaction Status Date / Time No Known Allergies Allergy Verified 08/23/20 14:48 Active Medications: Current Medications Pharmacy Consult (Consult Rx Perform Med Rec) 1 each MISCELLANE ONCE PRN PRN Reason: Consult order Home Medications Medication Instructions Recorded Confirmed Last Taken Type cyanocobalamin (vitamin B-12) 1,000 mcg PO DAILY 08/23/20 Unknown History 1,000 mcg tablet ferrous sulfate 325 mg (65 mg 325 mg PO BID 08/23/20 Unknown History iron) tablet hydroxychloroquine 200 mg tablet 200 mg PO BID 08/23/20 Unknown History (Plaquenil) Physical Exam Vital Signs and Narrative: Vital Signs: Last Vital Signs Temp 98.4 F 08/16/21 05:08 Pulse 77 08/16/21 06:09 Resp 14 08/16/21 06:09 BP 112/62 08/16/21 06:09 Pulse Ox 96 08/16/21 06:09 BMI result Body Mass Index 23.8 Const: Other: Constitutional - Awake and Alert, No apparent distress Eyes - PERRLA, EOMI Cardiovascular - S1S2, RRR, No edema Respiratory - Normal lung expansion, Normal respiratory effort, No respiratory distress, CTA bilaterally Gastrointestinal - NT / ND; +BS; No rebound or guarding - L CVA TTP Extremities - no calf tenderness bilaterally, no swelling Musculoskeletal - Normal inspection, normal ROM Skin - Warm/Dry Neurological - Alert & oriented x3, No focal deficit Psychological - Appropriate affect Results Labs CBC and Chem 7: 08/16/21 05:36 08/16/21 05:36 Labs: Laboratory Results - last 24 hr 08/16/21 08/16/21 08/16/21 05:36 05:36 05:36 MCV 88.6 MCH 28.4 MCHC 32.1 RDW 12.6 Plt Count 183 MPV 9.4 Immature Gran % (Auto) 0.2 Neut % (Auto) 73.5 H Lymph % (Auto) 16.9 L [place] % (Auto) 9.0 Eos % (Auto) 0.2 Baso % (Auto) 0.2 Lymph # (Auto) 0.7 L [place] # (Auto) 0.4 Eos # (Auto) 0.0 Baso # (Auto) 0.0 Abs Immat Gran (auto) 0.01 Absolute Neuts (auto) 3.2 Absolute Nucleated RBC 0.000 Nucleated RBC % (auto) 0.0 Anion Gap 11 L Estim Creat Clear Calc 74.5 Estimated GFR > 60 Random Glucose 96 Lactic Acid 0.5 Calcium 9.1 COVID-19 (JB) COVID-19 Clin Com 08/16/21 07:12 MCV MCH MCHC RDW Plt Count MPV Immature Gran % (Auto) Neut % (Auto) Lymph % (Auto) [place] % (Auto) Eos % (Auto) Baso % (Auto) Lymph # (Auto) [place] # (Auto) Eos # (Auto) Baso # (Auto) Abs Immat Gran (auto) Absolute Neuts (auto) Absolute Nucleated RBC Nucleated RBC % (auto) Anion Gap Estim Creat Clear Calc Estimated GFR Random Glucose Lactic Acid Calcium COVID-19 (JB) Negative COVID-19 Clin Com See Note Assessment and Plan (1) Acute bacterial pyelonephritis: Status: Acute (2) Bacteremia due to Gram-negative bacteria: Status: Acute This is a 46 yo F who is immunecompromised (SLE on Hydroxychlorquin) who is being admitted for gram negative bacteremia secondary to pyelonpehritis. 1. Acute Pyelonephritis causing gram negative bacteremia No evidence of sepsis at this time repeat blood cx f/u original cultures IV rocephin - no reported history of resistant organisms Her urine culture is negative although I suspect this is due to her being on antibiotics previously. 2. SLE hold hydroxychlorquin -- restart upon d/c 3. Nephrolithasis non-obstructing -- 1mm (Radiology to clarify which kidney) 4. 1 Cm sclerotic lesion L3 vertebrae to f/u outpatient Full Code DVT pptx, Lovenox Quality Stroke Does the patient have a stroke diagnosis?: No VTE Prior VTE?: No VTE Risk Level:: Medical - moderate - high VTE Device Contraindication: Treatment Not Indicated VTE Drug Contraindication: N/A - Med Ordered
[2021-08-16] MEDS: Enoxaparin Sodium 40 MG/0.4 ML SYRINGE SUBCUT (10:23)
[2021-08-16 10:43] VITALS: BP 119/71; PULSE 77; RESP 15; TEMP 37.3; O2SAT 99
--- NOTE | 2021-08-16 11:19 | PHA.MEDREC ---
Pharmacy Consult ? Medication Reconciliation Pharmacy has completed the medication reconciliation. There are no remarkble issues for provider's attention. Rosalinda Washburn, BrantD
--- NOTE | 2021-08-16 16:48 | PC.NURSE ---
Pt A&Ox3, no complaints at this time, independent, aware q24 hour antibiotics next due at 0600. No needs at this time, oriented to unit, will continue to monitor.
[2021-08-16 18:29] VITALS: BP 133/83; PULSE 91; RESP 18; TEMP 36.7; O2SAT 100
--- NOTE | 2021-08-16 18:41 | PC.NURSE ---
Pt menses began, new pants, panties and products provided to pt, no complaints of pain. Will continue to monitor.
--- NOTE | 2021-08-16 19:59 | PC.NURSE ---
Assumed care of pt at 1900. Pt resting in bed, in NAD, awake and alert, s/p eating dinner. No complaints, denies all needs at this time, educated to call for assistance.
[2021-08-16] MEDS: Acetaminophen 325 MG TABLET 650 MG PO (21:49)
[2021-08-17 06:06] VITALS: BP 123/69; PULSE 76; RESP 18; O2SAT 99
[2021-08-17] MEDS: cefTRIAXone sodium 1 GM in 0.9 % Sodium Chloride 50 ML IV (06:06)
--- NOTE | 2021-08-17 08:18 | PC.NURSE ---
Pt received from overnight associate: Pt AoX4 and offers no complaints at this time. Pt not required for heart monitor but heart and lung sounds ausculated as regular and clear. Pt abd round and non-tender.
[2021-08-17 08:20] VITALS: BP 120/66; PULSE 82; RESP 18; TEMP 36.4; O2SAT 99
[2021-08-17] MEDS: Enoxaparin Sodium 40 MG/0.4 ML SYRINGE SUBCUT (09:02)
--- NOTE | 2021-08-17 09:28 | MHC.CM.PN ---
pt lives in her home c her and children. she is independent in her care, has no svcs in the home and does not use any AD c ambulation. 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 her and other family that live in the area can help her should she have any needs . her will provide transport home at dc. pt denies the need for vna at dc. dc plan is home no svcs. cm to cont. to follow.
[2021-08-17 09:58] VITALS: BP 114/77; PULSE 85; RESP 15; TEMP 36.6; O2SAT 100
--- NOTE | 2021-08-17 11:25 | PM.DS ---
DS: Providers Provider Date of Service: 08/17/21 Date of admission: 08/16/21 09:33 Primary care physician: Deisy Adrian MD DS: Diagnosis Discharge Diagnosis (1) Acute bacterial pyelonephritis: Status: Acute (2) Bacteremia due to Gram-negative bacteria: Status: Acute DS: Summary Hospital Course Hospital Course: HPI: This is a 46 yo F with a PMH of Lupus on Hydroxychlorquin who was called back to [facility] after her blood cultures were found to be positive. The patient reports that she began having symptoms of a UTI (dysuria, frequency, flank pain and fevers) about 5 days prior to admission. She went to an urgent care on Sunday (3 days prior to admission) where she was diagnosed with a UTI and was treated with Macrobid. She reports that she began having worsening flank(left sided) pain with fevers as high as 101 and so she presented to [facility] ED on 08/15/21. SHe was worked up with a CT scan which showed L-sided pyelonephritis. She was treated with IVF, IV rocephin and cultures were drawn. She had no fever, negative lactate and normal WBC count and was therefore discharged home. However, when 1/2 blood cultures turned positive, she was called back to the ED. She will now be admitted for treatment of gram negative bacteremia.? Hospital Course Patient was treated with IV rocephin x 2 (q24 hours apart). She remained afebrile. Her repeat blood cultures are negative at 24 hours. Her original blood cultures will be finalized on 08/18/21. However, the patient is feeling better and eager for discharge. Will discharge her and f/u the blood cultures tomorrow (will call her with the results). She is aware that she may have to come back if there are resistant organisms. She is also aware that if she has any fevers, chills, worsening flank pain, nausea/vomiting -- to return to the ED. She will be d/c home on Ceftin 500mg twice daily for total 14 days. Time Spent with Patient Time attestation: Total time spent providing and/or coordinating discharge services: Discharge coordination time: Greater than 30 minutes Quality: Stroke Does the patient have a stroke diagnosis?: No Physical Exam Vital Signs: Vital Signs: Last Vital Signs Temp 97.8 F 08/17/21 09:58 Pulse 85 08/17/21 09:58 Resp 15 08/17/21 09:58 BP 114/77 08/17/21 09:58 Pulse Ox 100 08/17/21 09:58 BMI result Body Mass Index 23.8 Const: Other: General - no acute distress, appears comfortable Cardiovascular - regular rate and rhythm, S1-S2 Lungs - normal respiratory effort, clear to auscultation bilaterally, no wheezing Abdomen - soft, nontender, no rebound or guarding Extremities - no edema bilaterally Neuro - awake and alert, no focal deficits Discharge Plan Discharge Patient Disposition: Home, Self-Care Discharge Diagnosis: Pyelonephritis Bacteremia Referrals: Deisy Pardo MD [Primary Care Provider] - 1 Week Discharge Medications: New cefuroxime axetil 500 mg tablet 500 mg PO Q12H Qty: 28 RF: 0 Continued ibuprofen 800 mg tablet 800 mg PO Q8H PRN (Reason: pain) Qty: 14 RF: 0 ondansetron HCl [Zofran] 4 mg tablet 4 mg PO Q8H PRN (Reason: nausea and vomiting) Qty: 14 RF: 0 ascorbic acid (vitamin C) [Vitamin C] 500 mg Tablet 500 mg PO DAILY RF: 0 cyanocobalamin (vitamin B-12) 1,000 mcg tablet 1,000 mcg PO DAILY RF: 0 Held hydroxychloroquine [Plaquenil] 200 mg tablet 200 mg PO BID RF: 0 Hold Instructions: Resume on 08/22/21. Discontinued cefpodoxime 200 mg tablet 200 mg PO BID 14 Days Qty: 28 RF: 0 Discharge Orders: Discharge Order (Routine); Ordered 08/17/21 Ordered By: Tacho Deleon Diet: advance to usual diet Activity on Discharge: As tolerated Stand Alone Forms: Patient Portal Discharge page Care Plan Goals: To stay healthy and out of the hospital. Health Concerns: Bacteremia / Pyelonephritis Plan of Treatment: Take Cefuroxime 500mg twice daily for 14 days. You will be called once your blood cultures have finalized. If there is any resistant bacteria, you will need to come back to the hospital. Additionally -- if you have any fevers or chills, any worsening pain, please return to the emergency room. Assessment: See d/c summary
== END 2021-08-17 14:15 | disposition home or self-care (01) | DRG 690 ==
LOC: HO.ED 06:43 → HO.EDOVER 09:48 → HO.S3 08-17 11:42 → HO.EDOVER 08-17 13:00
PROVIDERS: Admitting Provider Family Medicine; Emergency Provider Internal Medicine; PCP Internal Medicine; Visit Provider Family Medicine
DX: N10 Acute pyelonephritis (principal); R78.81 Bacteremia; M32.9 Systemic lupus erythematosus, unspecified; Z20.822 Contact with and (suspected) exposure to COVID-19; Z79.1 Long term (current) use of non-steroidal anti-inflammatories (NSAID); Z79.899 Other long term (current) drug therapy
CPT/HCPCS: 36415; 80048; 83605; 85025; 87040; 87635; 99284; J0696; J1650

== ENCOUNTER 2021-09-20 15:05 | Outpatient (REF) | payer OTHER, SELFPAY ==
--- NOTE | ~2021-09-20 | XR_ITS ---
EXAMINATION: XR CHEST CLINICAL INFORMATION: Cough COMPARISON: February 13, 2011 TECHNIQUE: 2 views of the chest were obtained. FINDINGS: No significant abnormality is noted involving the heart, lungs, mediastinum, bony thorax or soft tissues. XR/XR chest 2V IMPRESSION: No acute disease.
== END 2021-09-20 15:06 | disposition home or self-care (01) ==
LOC: HO.XRAY 15:05
PROVIDERS: PCP Internal Medicine; Visit Provider Nurse Practitioner Family
DX: R05.9 Cough, unspecified (principal); U07.1 COVID-19
CPT/HCPCS: 71046

== ENCOUNTER 2021-09-30 13:28 | Outpatient (REF) | payer OTHER, SELFPAY ==
[2021-09-30 15:00] LABS: Blood Urea Nitrogen 13 mg/dL (9-16); Estimated Glomerular Filt Rate > 60
== END 2021-09-30 13:29 | disposition home or self-care (01) ==
LOC: HO.LAB 13:28
PROVIDERS: PCP Internal Medicine; Visit Provider Nurse Practitioner Family
DX: M89.8X9 Other specified disorders of bone, unspecified site (principal); R93.7 Abnormal findings on diagnostic imaging of other parts of musculoskeletal system; N10 Acute pyelonephritis; B96.89 Other specified bacterial agents as the cause of diseases classified elsewhere
CPT/HCPCS: 36415; 82565; 84520

== ENCOUNTER 2021-10-11 15:23 | Outpatient (REF) | payer OTHER, SELFPAY ==
--- NOTE | ~2021-10-11 | MR_ITS ---
EXAMINATION: MR LUMBAR SPINE WITHOUT AND WITH CONTRAST CLINICAL INFORMATION: Follow up to findings on previous CT abdomen; 1 cm sclerotic lesion in the L3 vertebral body. COMPARISON: 08/15/2021 CT abdomen TECHNIQUE: MRI of the lumbar spine was obtained using routine sequences with and without contrast. Intravenous contrast: Gadavist 6 mL FINDINGS: Coronal Alignment: Normal. Sagittal Alignment: Normal. Lumbosacral Junction: Normal. Vertebral Bodies: Normal height. Disc Spaces and Endplates: Cnbd-jf-brzsmotd disc space height loss posteriorly at L5-S1 with disc desiccation. Remaining lumbar intervertebral discs demonstrate normal height and signal intensity. Spinal Canal: No abnormal developmental findings. Bone Marrow: There is a 1.0 x 0.7 x 0.5 cm focus of signal loss in the L3 vertebral body which corresponds to the finding on the previous CT and has not significantly changed in size. There is no associated marrow edema or abnormal enhancement corresponding to this. The finding is most consistent with a bone island. Otherwise bone marrow signal intensity appears within normal limits with no abnormal marrow enhancement or edema. Conus Medullaris: Terminates at L1. Morphology and signal is normal. No abnormal enhancement. No abnormal leptomeningeal enhancement. Intradural Nerve Roots: Within normal limits. No abnormal intradural enhancement. L5-S1: Diffuse disc bulging with central to left subarticular transverse annular fissuring, which is noted to enhance, with minimal flattening of the ventral dural sac without neural impingement. Xbza-sc-cbdpcvps bilateral facet arthropathy is noted without significant spinal canal stenosis. There is mild right-sided and biuz-zg-afzklwaa left-sided neural foraminal stenosis without definite neural impingement. L4-L5: Mild annular bulging noted with slight flattening of the ventral dural sac. Wwag-uy-mjlykcwv facet arthropathy noted bilaterally without significant canal stenosis or neural foraminal compromise. L3-L4: Shallow minimal central disc protrusion. No significant facet arthrosis, canal or neuroforaminal stenosis. L2-L3: Normal disc contour. No facet arthrosis, canal or neuroforaminal stenosis. L1-L2: Normal disc contour. No facet arthrosis, canal or neuroforaminal stenosis. Paraspinal/Retroperitoneal: The paravertebral soft tissues are unremarkable. MR/MR lumbar spine wo/w con IMPRESSION: 1. 1 cm focus of signal loss in the L3 vertebral body stable in appearance when compared to previous sclerotic lesion on CT, likely a bone island. If clinically warranted, a follow-up plain x-ray of the lumbar spine can be done in 6-12 months to reconfirm stability if there is any clinical history of malignancy. 2. Discogenic degenerative changes at L5-S1 with disc bulging and annular fissuring at this level, with facet arthrosis, mild right-sided and yplw-fw-rfgfeeix left-sided neural foraminal stenosis without neural impingement. 3. Minor annular bulging at L4-L5 and shallow minimal central disc protrusion L3-L4 with [id number]-nv-[id number] facet arthrosis at L4-L5 without spinal canal or neuroforaminal stenosis.
== END 2021-10-11 15:24 | disposition home or self-care (01) ==
LOC: HO.MRI 15:23
PROVIDERS: Visit Provider Nurse Practitioner Family
DX: M89.8X9 Other specified disorders of bone, unspecified site (principal); R93.7 Abnormal findings on diagnostic imaging of other parts of musculoskeletal system
CPT/HCPCS: 72158; A9585

== ENCOUNTER 2022-01-11 16:37 | Outpatient (REF) | payer OTHER, SELFPAY ==
[2022-01-11 16:54] LABS: MANUAL DIFF FLAG NO
[2022-01-11 17:41] LABS: Basophils Percent Auto 0.6 % (0-2); Eosinophils Percent Auto 1.2 % (0-4); Hematocrit 32.7 % (37.0-47.0); Hemoglobin 10.2 g/dl (12.0-16.0); Imm Gran Abs Auto 0.01 X10*3/uL (0.00-0.03); Imm Gran Pct Auto 0.3 % (0.0-0.4); Lymphocytes Absolute Auto 0.9 X10*3/uL (1.2-4.9); Lymphocytes Percent Auto 27.6 % (20-40); Mean Corpuscular HGB Conc 31.2 g/dl (31.0-35.0); Mean Corpuscular Hemoglobin 25.7 pg (27.0-33.0); Mean Corpuscular Volume 82.4 fL (80.0-98.0); Mean Platelet Volume 9.8 fL (9.4-12.3); Monocytes Absolute Auto 0.3 X10*3/uL (0.1-1.2); Monocytes Percent Auto 10.2 % (2-11); Neutrophils Absolute Auto 1.9 x10*3/uL (2.0-8.3); Neutrophils Percent Auto 60.1 % (45-73); Platelet Count 221 X10*3/uL (160-400); Red Blood Count 3.97 X10*6/uL (4.20-5.50); Red Cell Distribution Width 14.9 % (11.0-16.0); White Blood Count 3.2 X10*3/uL (4.8-10.8)
[2022-01-11 17:56] LABS: Alanine Aminotransferase 26 U/L (0-31); Albumin Level 3.9 g/dL (3.5-5.0); Alkaline Phosphatase 71 U/L (39-117); Anion Gap 11 (12-20); Aspartate Amino Transferase 31 U/L (5-31); Bilirubin Total 0.4 mg/dL (0.0-1.0); Blood Urea Nitrogen 13 mg/dL (9-16); C Reactive Protein 0.25 mg/dL (< or = 0.50); Calcium 9.5 mg/dL (8.4-10.2); Carbon Dioxide 26 mmol/L (22-29); Chloride 104 mmol/L (96-108); Estimated Glomerular Filt Rate > 60; Glucose Random 78 mg/dL (60-115); Potassium 3.8 mmol/L (3.3-5.1); Sodium 137 mmol/L (135-145); Total Protein 7.2 g/dL (6.5-8.0)
[2022-01-11 18:35] LABS: Erythrocyte Sedimentation Rate 26 MM/HR (0-20)
[2022-01-12 12:30] LABS: Complement C3 58 mg/dL (83-193)
[2022-01-17 09:02] LABS: Anti DNA DS Antibody 1 IU/mL
== END 2022-01-11 16:38 | disposition home or self-care (01) ==
LOC: HO.LABR 16:37
PROVIDERS: PCP Internal Medicine; Visit Provider Internal Medicine Rheumatology
DX: M32.19 Other organ or system involvement in systemic lupus erythematosus (principal); D70.8 Other neutropenia; Z79.899 Other long term (current) drug therapy
CPT/HCPCS: 36415; 80053; 85025; 85652; 86140; 86160; 86225

== ENCOUNTER 2022-03-20 16:17 | Outpatient (REF) | payer OTHER, SELFPAY ==
--- NOTE | ~2022-03-20 | US_ITS ---
EXAMINATION: US RETROPERITONEAL LIMITED (RENAL ONLY) CLINICAL INFORMATION: Acute pyelonephritis. COMPARISON: CT abdomen and pelvis without contrast 08/15/2021. US retroperitoneal complete (renal) 03/24/2013. XR abdomen KUB 01/31/2013. TECHNIQUE: Real-time imaging of the kidneys. FINDINGS: RIGHT KIDNEY: 8.4 x 4.0 x 5.1 cm (SAG x AP x TRV). The kidney is normal in size, contour, and echogenicity. Renal cortical thickness is normal. No calculi or focal parenchymal lesions. No hydronephrosis. LEFT KIDNEY: 10.3 x 5.2 x 5.1 cm (SAG x AP x TRV). The kidney is normal in size, contour, and echogenicity. Renal cortical thickness is normal. No calculi or focal parenchymal lesions. No hydronephrosis. US/US renal BI IMPRESSION: Unremarkable renal ultrasound.
== END 2022-03-20 16:18 | disposition home or self-care (01) ==
LOC: HO.US 16:17
DX: N10 Acute pyelonephritis (principal); B96.89 Other specified bacterial agents as the cause of diseases classified elsewhere
CPT/HCPCS: 76775

== ENCOUNTER 2022-04-06 16:42 | Outpatient (REF) | payer OTHER, SELFPAY ==
[2022-04-06 17:42] LABS: Appearance Urine CLEAR; Color Urine YELLOW; Glucose Urine UA NEG (NEG); Leukocyte Esterase Urine NEG (NEG); Nitrite Urine POS (NEG); Specific Gravity - Urine >= 1.030 (1.005-1.025); UACC Culture Trigger YES; Urine Blood NEG (NEG); Urine Ketones NEG (NEG); Urine Protein NEG (NEG-TRACE)
[2022-04-06 17:54] LABS: Bacteria Urine 4+ /LPF; Mucus Urine TRACE /LPF; Squamous Epithelial Cell Urine 1+ /LPF
== END 2022-04-06 16:43 | disposition home or self-care (01) ==
LOC: HO.LAB 16:42
PROVIDERS: PCP Internal Medicine; Visit Provider Nurse Practitioner Family
DX: Z00.00 Encounter for general adult medical examination without abnormal findings (principal); M89.8X9 Other specified disorders of bone, unspecified site
CPT/HCPCS: 81001; 87086; 87088; 87186

== ENCOUNTER 2022-04-21 07:54 | Outpatient (REF) | payer OTHER, SELFPAY ==
--- NOTE | ~2022-04-21 | XR_ITS ---
EXAMINATION: XR LUMBOSACRAL SPINE WITH OBLIQUES CLINICAL INFORMATION: M89.8X9 - Other specified disorders of bone, unspecified site COMPARISON: MR lumbar spine 10/11/2021, CT abdomen 08/15/2021 TECHNIQUE: Lumbar spine is imaged in 5 views. FINDINGS: There is normal lumbar segmentation with 5 nonrib-bearing lumbar vertebrae of normal height and normal lumbar lordosis. There is no lumbar vertebral compression, spondylolisthesis, focal disc narrowing, or destructive process. Oblique view show no spondylolysis. There is a bone island within the L3 vertebral body similar in size and shape to prior imaging. XR/XR lumbar spine 4V min IMPRESSION: -No lumbar vertebral compression, spondylolisthesis, or disc narrowing. -Bone island L3 vertebral body similar in size and shape to prior exams.
[2022-04-21 08:57] LABS: Hematocrit 33.5 % (37.0-47.0); Hemoglobin 10.3 g/dl (12.0-16.0); Mean Corpuscular HGB Conc 30.7 g/dl (31.0-35.0); Mean Corpuscular Hemoglobin 24.8 pg (27.0-33.0); Mean Corpuscular Volume 80.5 fL (80.0-98.0); Mean Platelet Volume 9.6 fL (9.4-12.3); Platelet Count 215 X10*3/uL (160-400); Red Blood Count 4.16 X10*6/uL (4.20-5.50); Red Cell Distribution Width 14.6 % (11.0-16.0); White Blood Count 3.4 X10*3/uL (4.8-10.8)
[2022-04-21 09:16] LABS: Appearance Urine Clear; Color Urine Yellow; Glucose Urine UA Negative (Negative); Leukocyte Esterase Urine Negative (Negative); Nitrite Urine Negative (Negative); PH 6.5 (5.0-8.0); Urine Blood Negative (Negative); Urine Ketones Negative (Negative); Urine Protein Negative (Neg-Trace)
[2022-04-21 09:40] LABS: Cholesterol 213 mg/dL; HDL Cholesterol 91 mg/dL; LDL Cholesterol Calculated 114 mg/dl; Triglycerides 44 mg/dL
[2022-04-21 09:47] LABS: TSH reflex Free T4 1.63 uIU/mL (0.32-4.0); Vitamin D 25-OH Total 29.9 ng/mL (>30)
[2022-04-21 09:51] LABS: Vitamin B12 580 pg/mL (200-900)
[2022-04-21 09:53] LABS: Folate 16.6 ng/mL (> or = 4.0); Vitamin B12 612 pg/mL (200-900)
== END 2022-04-21 07:55 | disposition home or self-care (01) ==
LOC: HO.LAB 07:54
PROVIDERS: PCP Internal Medicine; Referring Provider Internal Medicine Rheumatology; Visit Provider Nurse Practitioner Family
DX: Z00.00 Encounter for general adult medical examination without abnormal findings (principal); M89.8X9 Other specified disorders of bone, unspecified site; E53.8 Deficiency of other specified B group vitamins
CPT/HCPCS: 36415; 72110; 80061; 81003; 82306; 82607; 82746; 84443; 85027

== ENCOUNTER 2022-07-31 15:31 | Outpatient (REF) | payer OTHER, SELFPAY ==
--- NOTE | ~2022-07-31 | MM_ITS ---
EXAMINATION: MM SCREENING DIGITAL BREAST TOMOSYNTHESIS, BILATERAL CLINICAL INFORMATION: Screening. Asymptomatic. The lifetime risk of breast cancer based on the Tyrer-Cuzick Model is 7%. COMPARISON: Mammography: 08/05/2021, 07/26/2021, 06/22/2020, 06/17/2019; right breast ultrasound 08/05/2021 TECHNIQUE: Digital breast tomosynthesis is performed in both the craniocaudal and mediolateral oblique views along with computer-aided detection (CAD). Synthesized 2D images are generated from the tomosynthesis. FINDINGS: There are scattered areas of fibroglandular density (ACR BI-RADS breast composition Category b). There are no significant masses, abnormal calcifications, or other abnormalities. Breast tissue composition borders on heterogeneously dense. There is no architectural abnormality or developing density. The skin contours are smooth. No significant changes. MM/MM tomosynthesis screening BI IMPRESSION: No mammographic evidence of malignancy. ASSESSMENT: BI-RADS 1: Negative RECOMMENDATION: Routine annual mammography screening. This patient's information was entered into a reminder system with a target due date for their next mammogram.
== END 2022-07-31 15:32 | disposition home or self-care (01) ==
LOC: HO.MAMMO 15:31
PROVIDERS: Visit Provider Internal Medicine
DX: Z12.31 Encounter for screening mammogram for malignant neoplasm of breast (principal)
CPT/HCPCS: 77063; 77067

== ENCOUNTER 2022-08-15 15:02 | Outpatient (REF) | payer OTHER, SELFPAY ==
[2022-08-15 15:31] LABS: Appearance Urine Clear; Color Urine Yellow; Glucose Urine UA Negative (Negative); Leukocyte Esterase Urine Negative (Negative); Nitrite Urine Negative (Negative); Specific Gravity - Urine 1.025 (1.005-1.025); Urine Blood Negative (Negative); Urine Ketones Negative (Negative); Urine Protein Negative (Neg-Trace)
[2022-08-15 16:13] LABS: Ferritin 10 ng/mL (10-250); Iron 56 mcg/dL (30-160); Percent Iron Saturation 17 % (15-50); Total Iron Binding Capacity 323 mcg/dL (228-428); Unsaturated Iron Binding 267 ug/dL; Vitamin D 25-OH Total 18.9 ng/mL (>30)
== END 2022-08-15 15:03 | disposition home or self-care (01) ==
LOC: HO.LAB 15:02
PROVIDERS: Nurse Practitioner Family; PCP Internal Medicine; Visit Provider Internal Medicine
DX: R30.0 Dysuria (principal); R79.89 Other specified abnormal findings of blood chemistry; D64.9 Anemia, unspecified
CPT/HCPCS: 36415; 81003; 82306; 82728; 83540

== ENCOUNTER 2022-09-19 16:39 | Outpatient (REF) | payer OTHER, SELFPAY ==
--- NOTE | ~2022-09-19 | XR_ITS ---
EXAMINATION: XR ABDOMEN KUB CLINICAL INDICATION: Dorsalgia. COMPARISON: Renal ultrasound 03/20/2022. CT abdomen/pelvis 08/15/2021. TECHNIQUE: AP view of the abdomen. FINDINGS: Nonobstructive bowel gas pattern. Mild to moderate diffuse colonic stool burden. Numerous pelvic phleboliths. No acute osseous abnormalities. Imaged lung bases are clear. No significant soft tissue finding. XR/XR KUB IMPRESSION: 1. Nonobstructive bowel gas pattern. 2. Mild to moderate diffuse colonic stool burden. 3. No acute osseous abnormalities. If symptoms persist, consider correlation with dedicated imaging of the spine.
== END 2022-09-19 16:40 | disposition home or self-care (01) ==
LOC: HO.XRAY 16:39
PROVIDERS: PCP Internal Medicine; Visit Provider Internal Medicine
DX: M54.9 Dorsalgia, unspecified (principal)
CPT/HCPCS: 74018

== ENCOUNTER 2022-11-06 16:28 | Outpatient (REF) | payer OTHER, SELFPAY ==
[2022-11-06 16:44] LABS: MANUAL DIFF FLAG NO
[2022-11-06 17:35] LABS: Appearance Urine Clear; Basophils Percent Auto 0.4 % (0-2); Color Urine Yellow; Eosinophils Percent Auto 0.4 % (0-4); Glucose Urine UA Negative (Negative); Hematocrit 36.2 % (37.0-47.0); Hemoglobin 11.2 g/dl (12.0-16.0); Imm Gran Abs Auto 0.01 X10*3/uL (0.00-0.03); Imm Gran Pct Auto 0.4 % (0.0-0.4); Leukocyte Esterase Urine Negative (Negative); Lymphocytes Absolute Auto 0.8 X10*3/uL (1.2-4.9); Lymphocytes Percent Auto 30.4 % (20-40); Mean Corpuscular HGB Conc 30.9 g/dl (31.0-35.0); Mean Corpuscular Hemoglobin 25.2 pg (27.0-33.0); Mean Corpuscular Volume 81.5 fL (80.0-98.0); Mean Platelet Volume 10.2 fL (9.4-12.3); Monocytes Absolute Auto 0.3 X10*3/uL (0.1-1.2); Monocytes Percent Auto 11.2 % (2-11); Neutrophils Absolute Auto 1.5 x10*3/uL (2.0-8.3); Neutrophils Percent Auto 57.2 % (45-73); Nitrite Urine Negative (Negative); PH 5.5 (5.0-9.0); Platelet Count 222 X10*3/uL (160-400); Red Blood Count 4.44 X10*6/uL (4.20-5.50); Red Cell Distribution Width 14.1 % (11.0-16.0); Specific Gravity - Urine >= 1.030 (1.005-1.025); UMIC TRIGGER UACC YES; Urine Blood Negative (Negative); Urine Ketones Trace mg/dL (Negative); Urine Protein 30 (1+) mg/dL (Neg-Trace); White Blood Count 2.6 X10*3/uL (4.8-10.8)
[2022-11-06 17:50] LABS: Bacteria Urine None Seen (None Seen); Calcium Oxalate Crystals Urine Present; Hyaline Casts Urine 0-2 /LPF (0-2); RBC Urine 0-2 /HPF (0-2); WBC Urine 0-5 /HPF (0-5)
[2022-11-06 18:23] LABS: Erythrocyte Sedimentation Rate 33 MM/HR (0-20)
[2022-11-06 18:28] LABS: Creatinine Urine 238.06 mg/dL; Protein/Creatinine Ratio, Ur 0.05 (<0.2); Total Protein Urine Random 12 mg/dL (<12)
[2022-11-06 18:33] LABS: Alanine Aminotransferase 17 U/L (0-31); Albumin Level 3.8 g/dL (3.5-5.0); Alkaline Phosphatase 70 U/L (39-117); Anion Gap 11 (12-20); Aspartate Amino Transferase 27 U/L (5-31); Bilirubin Total 0.4 mg/dL (0.0-1.0); Blood Urea Nitrogen 13 mg/dL (9-16); C Reactive Protein 1.05 mg/dL (< or = 0.50); Calcium 8.9 mg/dL (8.4-10.2); Carbon Dioxide 25 mmol/L (22-29); Chloride 109 mmol/L (96-108); Estimated Glomerular Filt Rate > 60; Glucose Random 88 mg/dL (60-115); Potassium 3.8 mmol/L (3.3-5.1); Sodium 141 mmol/L (135-145); Total Protein 6.9 g/dL (6.5-8.0)
[2022-11-08 08:33] LABS: Complement C3 125 mg/dL (83-193)
== END 2022-11-06 16:29 | disposition home or self-care (01) ==
LOC: HO.LAB 16:28
PROVIDERS: PCP Internal Medicine; Visit Provider Internal Medicine Rheumatology
DX: M32.9 Systemic lupus erythematosus, unspecified (principal)
CPT/HCPCS: 36415; 80053; 81001; 84156; 85025; 85652; 86140; 86160

== ENCOUNTER 2023-02-08 16:40 | Outpatient (REF) | payer OTHER, SELFPAY ==
[2023-02-08 17:42] LABS: Basophils Percent Auto 0.4 % (0-2); Eosinophils Percent Auto 1.2 % (0-4); Hematocrit 31.5 % (37.0-47.0); Hemoglobin 9.7 g/dl (12.0-16.0); Lymphocytes Percent Auto 40.6 % (20-40); MANUAL DIFF FLAG SCAN; Mean Corpuscular HGB Conc 30.8 g/dl (31.0-35.0); Mean Corpuscular Hemoglobin 24.5 pg (27.0-33.0); Mean Corpuscular Volume 79.5 fL (80.0-98.0); Mean Platelet Volume 9.9 fL (9.4-12.3); Monocytes Absolute Auto 0.3 X10*3/uL (0.1-1.2); Neutrophils Absolute Auto 1.2 x10*3/uL (2.0-8.3); Neutrophils Percent Auto 47.8 % (45-73); Platelet Count 220 X10*3/uL (160-400); Red Blood Count 3.96 X10*6/uL (4.20-5.50); Red Cell Distribution Width 15.6 % (11.0-16.0); SCAN SMEAR FLAG 1
[2023-02-08 17:59] LABS: White Blood Count 2.5 X10*3/uL (4.8-10.8)
[2023-02-08 18:00] LABS: SLIDE REVIEW VERIFIED
[2023-02-08 18:07] LABS: Alanine Aminotransferase 12 U/L (0-31); Albumin Level 3.9 g/dL (3.5-5.0); Alkaline Phosphatase 71 U/L (39-117); Anion Gap 13 (12-20); Aspartate Amino Transferase 22 U/L (5-31); Bilirubin Total 0.4 mg/dL (0.0-1.0); Blood Urea Nitrogen 13 mg/dL (9-16); C Reactive Protein 0.22 mg/dL (< or = 0.50); Calcium 8.9 mg/dL (8.4-10.2); Carbon Dioxide 24 mmol/L (22-29); Chloride 106 mmol/L (96-108); Estimated Glomerular Filt Rate > 60; Glucose Random 76 mg/dL (60-115); Potassium 3.7 mmol/L (3.3-5.1); Sodium 139 mmol/L (135-145); Total Protein 7.2 g/dL (6.5-8.0)
[2023-02-08 18:29] LABS: Erythrocyte Sedimentation Rate 27 MM/HR (0-20)
[2023-02-12 12:09] LABS: Complement C3 105 mg/dL (83-193)
== END 2023-02-08 16:41 | disposition home or self-care (01) ==
LOC: HO.LAB 16:40
PROVIDERS: Visit Provider Internal Medicine Rheumatology
DX: M32.9 Systemic lupus erythematosus, unspecified (principal)
CPT/HCPCS: 36415; 80053; 85025; 85652; 86140; 86160

== ENCOUNTER 2023-04-05 11:11 | Outpatient (AMB) | payer OTHER, SELFPAY ==
[2023-04-05 11:16] VITALS: BP 130/62; BMI 25.5
--- NOTE | 2023-04-05 11:16 | A.OFFVIS_ITS ---
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 Normal monthly menses in the past; heavy bleeding 3/5 days. Denies any trauma like stresses, medical surgeries or changes. No prednisone use. [facility] Medical History Acute bacterial pyelonephritis Bacteremia due to Gram-negative bacteria [place] Cough COVID-19 virus infection Systemic lupus erythematosus Vaginal itching Surgical History History of colonoscopy History of tubal ligation Family History Mother Rheumatoid arthritis Stroke Hypertension Sister Rheumatoid arthritis Cervical cancer Paternal Grandfather Colon cancer Maternal Grandfather Colon cancer Prostate cancer Maternal Aunt Colon cancer Social History Housing: House Alcohol intake: current Alcohol intake frequency: a few times a month Alcohol type: beer, wine and hard liquor Patient Tobacco Use Status: Never used Tobacco e-Cigarette/Vaping Use: Never Used Second Hand Smoke Exposure: No service: No Current occupational status: employed Current occupational exposures/hazards: No Sexual orientation: Straight/Heterosexual Gender identity: Female Cognitive needs: No Hearing needs: No Vision needs: Yes Female Reproductive History Menstrual Age of Menarche: 13 Date of last menstrual period: 02/24/23 Total pregnancies: 4 Full term: 2 Number of Living Children: 2 Ab induced: 2 Date of last pap smear: 08/19/19 (neg pap and hpv) Date of Mammogram: 07/31/22 (Birad 1) Physical Exam Vital Signs: Last Vital Signs BP 130/62 04/05/23 11:16 BMI result Body Mass Index 25.5 Const General: cooperative, healthy appearing, comfortable, no acute distress, well developed, alert and awake Other: General: Yes bladder normal to palpation External Female Exam: normal external appearance and normal appearance of the u rethra Speculum Exam - Vagina: normal appearance of the vagina, normal palpation and normal vaginal discharge Speculum Exam - Cervix: normal appearance of the cervix and normal palpation Bimanual exam- vagina & uterus: normal bimanual exam, normal palpation, bladder normal to palpation and normal palpation Bimanual Exam- Adnexa, other: normal adnexae and no masses Assessment & Plan Assessment & Plan (1) Abnormal uterine bleeding: Code(s): N93.9 - Abnormal uterine and vaginal bleeding, unspecified Plan: Discussed; Pelvic US ordered. Follow up in person for results with possible EMB. EMB to rule out atypia, hyperplasia, uterine cancer. Counseled re: perimenopause vs menopause. Monitor periods, report any unscheduled bleeding, bleeding episodes less than 21 days apart or heavy prolonged menstrual bleeding. Contact PCP regarding doing blood work including TSH and CBC. Contact if labs could not be done with PCP so it can be done in office. If experience excessive bleeding, light headedness or dizziness report to ED. All of her questions and concerns were addressed to the best of my ability and shared decision making. She is agreeable to plan of care. Code(s): N93.9 - Abnormal uterine and vaginal bleeding, unspecified (3) Vaginal discharge: Code(s): N89.8 - Other specified noninflammatory disorders of vagina Plan: BV testing and GC/CT panel done today. Await results and treat accordingly. Orders: Orders Bacterial Vaginosis Panel Today N93.9 - Abnormal uterine and vaginal bleeding, unspecified CT NG by PCR Today N93.9 - Abnormal uterine and vaginal bleeding, unspecified Thyroid Stimulating Hormone Today N92.1 - Excessive and frequent menstruation with irregular cycle US pelvic and transvaginal Today N93.9 - Abnormal uterine and vaginal bleeding, unspecified Pap Smear Today N93.9 - Abnormal uterine and vaginal bleeding, unspecified Coding Level of Care Code Est Pt Level 4 (86759) Diagnoses Abnormal uterine bleeding N93.9 Vaginal discharge N89.8
== END 2023-04-05 11:50 | disposition home or self-care (01) ==
LOC: HO.HWS 11:11
PROVIDERS: PCP Internal Medicine; Visit Provider Advanced Practice Midwife
DX: N93.9 Abnormal uterine and vaginal bleeding, unspecified (principal); N89.8 Other specified noninflammatory disorders of vagina
CPT/HCPCS: 99214

== ENCOUNTER 2023-04-05 11:11 | Outpatient (REF) | payer OTHER, SELFPAY ==
[2023-04-10 05:09] LABS: HPV mRNA E6/E7 rflx Not Detected (Not Detected)
== END 2023-04-05 11:12 | disposition home or self-care (01) ==
LOC: HO.LNP 11:11
PROVIDERS: PCP Internal Medicine; Visit Provider Advanced Practice Midwife
DX: Z12.4 Encounter for screening for malignant neoplasm of cervix (principal); Z11.51 Encounter for screening for human papillomavirus (HPV); N93.9 Abnormal uterine and vaginal bleeding, unspecified; N89.8 Other specified noninflammatory disorders of vagina
CPT/HCPCS: 87624; 88142

== ENCOUNTER 2023-04-05 11:42 | Outpatient (REF) | payer OTHER, SELFPAY ==
[2023-04-06 05:20] LABS: CT PCR NOT DETECTED (Not Detect.); NG PCR NOT DETECTED (Not Detect.)
[2023-04-06 11:46] LABS: BV Int Neg Control Negative (Negative); BV Int Pos Control Positive (Positive)
== END 2023-04-05 11:43 | disposition home or self-care (01) ==
LOC: HO.LAB 11:42
PROVIDERS: Visit Provider Advanced Practice Midwife
DX: N93.9 Abnormal uterine and vaginal bleeding, unspecified (principal); Z20.2 Contact with and (suspected) exposure to infections with a predominantly sexual mode of transmission
CPT/HCPCS: 0353U; 87480; 87510; 87660

== ENCOUNTER 2023-04-10 15:46 | Outpatient (REF) | payer OTHER, SELFPAY ==
--- NOTE | ~2023-04-10 | US_ITS ---
EXAMINATION: US PELVIS CLINICAL INFORMATION: Abnormal uterine and vaginal bleeding. Last menstrual period beginning of February. COMPARISON: CT abdomen and pelvis 08/15/2021. TECHNIQUE: Ultrasound of the pelvis is performed using both transabdominal and transvaginal transducers along with Doppler. Transvaginal imaging is performed due to inadequate visualization transabdominally. FINDINGS: The uterus is heterogeneous and measures 11.3 x 4.3 x 6.7 cm, volume 170.3 mL. 1.2 x 1.0 x 1.1 cm and 0.4 x 0.5 x 0.6 cm hypoechoic areas within the uterus are characteristic of fibroids. No significant free fluid. Endometrial thickness is 1.0 cm. Right ovary measures 2.8 x 1.4 x 1.9 cm, volume 3.9 mL and is unremarkable. Left ovary measures 2.6 x 2.4 x 2.1 cm, volume 6.9 mL and is unremarkable. Visualization of the bilateral ovaries is limited due to bowel gas. Small amount of free fluid in the left adnexa. US/US pelvic and transvaginal IMPRESSION: 1. Fibroid uterus. 2. Endometrial thickness is 1.0 cm. 3. Bilateral ovaries are grossly unremarkable, however, visualization is limited due to bowel gas. Small amount of free fluid in the left adnexa.
== END 2023-04-10 15:47 | disposition home or self-care (01) ==
LOC: HO.US 15:46
PROVIDERS: PCP Internal Medicine; Visit Provider Advanced Practice Midwife
DX: N93.9 Abnormal uterine and vaginal bleeding, unspecified (principal)
CPT/HCPCS: 76830; 76856

== ENCOUNTER 2023-04-26 06:47 | Outpatient (REF) | payer OTHER, SELFPAY ==
[2023-04-26 07:31] LABS: Alanine Aminotransferase 14 U/L (0-31); Albumin Level 3.8 g/dL (3.5-5.0); Alkaline Phosphatase 70 U/L (39-117); Anion Gap 10 (12-20); Aspartate Amino Transferase 25 U/L (5-31); Bilirubin Total 0.5 mg/dL (0.0-1.0); Blood Urea Nitrogen 15 mg/dL (9-16); Calcium 9.6 mg/dL (8.4-10.2); Carbon Dioxide 27 mmol/L (22-29); Chloride 105 mmol/L (96-108); Cholesterol 211 mg/dL (<200); Estimated Glomerular Filt Rate > 60; Glucose Fasting 80 mg/dL (60-99); HDL Cholesterol 92 mg/dL (>40); LDL Cholesterol Calculated 110 mg/dL (<100); Potassium 3.6 mmol/L (3.3-5.1); Sodium 138 mmol/L (135-145); Triglycerides 47 mg/dL (<150)
[2023-04-26 07:45] LABS: Thyroid Stimulating Hormone 2.96 uIU/mL (0.32-4.0); Vitamin D 25-OH Total 37.2 ng/mL (>30)
[2023-04-26 07:55] LABS: Folate 14.7 ng/mL (> or = 4.0); Vitamin B12 348 pg/mL (200-900)
== END 2023-04-26 06:48 | disposition home or self-care (01) ==
LOC: HO.LAB 06:47
PROVIDERS: Absent Provider Internal Medicine; PCP Internal Medicine; Visit Provider Advanced Practice Midwife
DX: N92.1 Excessive and frequent menstruation with irregular cycle (principal); E53.8 Deficiency of other specified B group vitamins; M32.9 Systemic lupus erythematosus, unspecified; E55.9 Vitamin D deficiency, unspecified; E78.5 Hyperlipidemia, unspecified
CPT/HCPCS: 36415; 80053; 80061; 82306; 82607; 82746; 84443

== ENCOUNTER 2023-05-08 14:15 | Outpatient (AMB) | payer OTHER, SELFPAY ==
--- NOTE | 2023-05-08 14:33 | MHC.OFFVIS ---
Intake Vital Signs 05/08/23 14:34 Height 5 ft 3 in Weight 144 lb BMI 25.5 BP 112/70 Intake Visit Reasons: US Follow up Intake Note: The patient agreed to use of a medical assistant dermatology during this encounter. Scribed for TEVIN Fregoso by Mamie Avila medical assistant dermatology, on 05/08/2023 at 2:50 pm EST. Allergies No Known Allergies Allergy (Verified 05/08/23 14:33) HPI HPI Comments History of Present Illness Details She is here to discuss US results regarding abnormal uterine and vaginal bleeding. Reports having a normal menses since last visit. Reports not having uterine fibroids in the past. [facility] Medical History Abnormal uterine bleeding Uterine fibroid Vaginal discharge COVID-19 virus infection Cough Vaginal itching Bacteremia due to Gram-negative bacteria Acute bacterial pyelonephritis [place] Systemic lupus erythematosus Surgical History History of colonoscopy History of tubal ligation Family History Mother Rheumatoid arthritis Stroke Hypertension Sister Rheumatoid arthritis Cervical cancer Paternal Grandfather Colon cancer Maternal Grandfather Colon cancer Prostate cancer Maternal Aunt Colon cancer Social History Housing: House Alcohol intake: current Alcohol intake frequency: a few times a month Alcohol type: beer, wine and hard liquor Patient Tobacco Use Status: Never used Tobacco e-Cigarette/Vaping Use: Never Used Second Hand Smoke Exposure: No service: No Current occupational status: employed Current occupational exposures/hazards: No Sexual orientation: Straight/Heterosexual Gender identity: Female Cognitive needs: No Hearing needs: No Vision needs: Yes Female Reproductive History Menstrual Age of Menarche: 13 Physical Exam Vital Signs: Last Vital Signs BP 112/70 05/08/23 14:34 BMI result Body Mass Index 25.5 Results Reviewed Results Reviewed: EXAMINATION: US PELVIS CLINICAL INFORMATION: Abnormal uterine and vaginal bleeding. Last menstrual period beginning of February. COMPARISON: CT abdomen and pelvis 08/15/2021. TECHNIQUE: Ultrasound of the pelvis is performed using both transabdominal and transvaginal transducers along with Doppler. Transvaginal imaging is performed due to inadequate visualization transabdominally. FINDINGS: The uterus is heterogeneous and measures 11.3 x 4.3 x 6.7 cm, volume 170.3 mL. 1.2 x 1.0 x 1.1 cm and 0.4 x 0.5 x 0.6 cm hypoechoic areas within the uterus are characteristic of fibroids. No significant free fluid. Endometrial thickness is 1.0 cm. Right ovary measures 2.8 x 1.4 x 1.9 cm, volume 3.9 mL and is unremarkable. Left ovary measures 2.6 x 2.4 x 2.1 cm, volume 6.9 mL and is unremarkable. Visualization of the bilateral ovaries is limited due to bowel gas. Small amount of free fluid in the left adnexa. US/US pelvic and transvaginal IMPRESSION: 1. Fibroid uterus. 2. Endometrial thickness is 1.0 cm. 3. Bilateral ovaries are grossly unremarkable, however, visualization is limited due to bowel gas. Small amount of free fluid in the left adnexa. Assessment & Plan Assessment & Plan (1) Encounter to discuss test results: Code(s): Z71.2 - Person consulting for explanation of examination or test findings Plan: Discussed: US findings of: 1. Fibroid uterus. 2. Endometrial thickness is 1.0 cm. 3. Bilateral ovaries are grossly unremarkable, however, visualization is limited due to bowel gas. Small amount of free fluid in the left adnexa. All of her questions and concerns were addressed to the best of my ability and shared decision making. She is agreeable to plan of care. (2) Uterine fibroid: Code(s): D25.9 - Leiomyoma of uterus, unspecified Plan: Leiomyoma: common pelvic neoplasm. Differential diagnosis-may include leiomyosarcoma which is a rare uterine sarcoma 3-7/100,000, difficult to distinguish from fibroids on ultrasound from uterine sarcoma's. Unlikely any single test will have a highly positive predictive value. Hysterectomy is not recommended for sole purpose of excluding malignant neoplasm. Report any PMB/AUB, pelvic pressure, bloating, or pain. Consult for surgical exploration verses expectant management offered. Patient prefers expectant management. Expectant management follow up in 6 months, then yearly for stability. (3) Abnormal uterine bleeding: Code(s): N93.9 - Abnormal uterine and vaginal bleeding, unspecified Plan: Report next menses. If experiencing light headedness, fatigue or gushing of blood, report to ED. Discussed EMB. The EMB purpose was explained to rule out atypia, hyperplasia and uterine cancer. Reviewed procedure and instructed to take ibuprofen with food 1 hour prior to procedure. Discussed BC options for cycle control including IUD to protect the endometrium from hyperplasia. She opts to do more research. Literature given. Would need medical clearance from Immunology, due to history of Lupus, and CBC. Status report on labs. All of her questions and concerns were addressed to the best of my ability and shared decision making: for EMBx. She is agreeable to plan of care. Schedule appointment for EMBx. Coding Level of Care Code Est Pt Level 3 (38181) Diagnoses Encounter to discuss test results Z71.2 Uterine fibroid D25.9 Abnormal uterine bleeding N93.9
[2023-05-08 14:34] VITALS: BP 112/70; BMI 25.5
== END 2023-05-08 15:08 | disposition home or self-care (01) ==
PROVIDERS: PCP Internal Medicine; Visit Provider Advanced Practice Midwife
DX: Z71.2 Person consulting for explanation of examination or test findings (principal); D25.9 Leiomyoma of uterus, unspecified; N93.9 Abnormal uterine and vaginal bleeding, unspecified
CPT/HCPCS: 99213

== ENCOUNTER → 2023-05-08 14:15 | Outpatient (BNVA) | payer OTHER, SELFPAY | PROVIDERS: PCP Internal Medicine; Visit Provider Advanced Practice Midwife ==

== ENCOUNTER 2023-05-18 14:28 | Outpatient (REF) | payer OTHER, SELFPAY | END 2023-05-18 14:29 | disposition home or self-care (01) | LOC: HO.LNP 14:28 | PROVIDERS: PCP Internal Medicine; Visit Provider Advanced Practice Midwife | DX: N93.9 Abnormal uterine and vaginal bleeding, unspecified (principal) | CPT/HCPCS: 58100; 88305 ==

== ENCOUNTER 2023-05-18 14:28 | Outpatient (AMB) | payer OTHER, SELFPAY ==
[2023-05-18 14:48] VITALS: BP 110/72; BMI 25.4
--- NOTE | 2023-05-18 14:48 | MHC.OFFVIS ---
Intake Vital Signs 05/18/23 14:48 Height 5 ft 3 in Weight 143 lb 4.807 oz BMI 25.4 BP 110/72 Intake Visit Reasons: EMB Intake Note: The patient agreed to use of a medical laboratory specialist during this encounter. Scribed for TEVIN Fregoso by Mamie Avila medical laboratory specialist, on 05/18/2023 at 3:00 pm EST. Hand Pleater Required: No Information Interpreted: non-clinical & clinical Button Maker And Installer: Button Maker And Installer Present (Krysten Torresrhett SO) Accompanied by: Self / Same As Patient Allergies No Known Allergies Allergy (Verified 05/18/23 14:49) Is last menstrual period known: Yes Last menstrual period: 05/09/23 HPI HPI Comments History of Present Illness Details She is here for a EMB today. History of AUB. She desires to have an Ablation consult due to her medical history with Lupus and limited medical options for her treatment. See procedure note. [facility] Medical History Abnormal uterine bleeding Uterine fibroid Vaginal discharge COVID-19 virus infection Cough Vaginal itching Bacteremia due to Gram-negative bacteria Acute bacterial pyelonephritis [place] Systemic lupus erythematosus Surgical History History of colonoscopy History of tubal ligation Family History Mother Rheumatoid arthritis Stroke Hypertension Sister Rheumatoid arthritis Cervical cancer Paternal Grandfather Colon cancer Maternal Grandfather Colon cancer Prostate cancer Maternal Aunt Colon cancer Social History Housing: House Alcohol intake: current Alcohol intake frequency: a few times a month Alcohol type: beer, wine and hard liquor Patient Tobacco Use Status: Never used Tobacco e-Cigarette/Vaping Use: Never Used Second Hand Smoke Exposure: No service: No Current occupational status: employed Current occupational exposures/hazards: No Sexual orientation: Straight/Heterosexual Gender identity: Female Cognitive needs: No Hearing needs: No Vision needs: Yes Female Reproductive History Menstrual Age of Menarche: 13 Date of last menstrual period: 05/09/23 Physical Exam Vital Signs: Last Vital Signs BP 110/72 05/18/23 14:48 BMI result Body Mass Index 25.4 Const General: cooperative, healthy appearing, comfortable, no acute distress, well developed, alert and awake Other: General: Yes bladder normal to palpation External Female Exam: normal external appearance and normal appearance of the urethra Speculum Exam - Vagina: normal appearance of the vagina, normal palpation and normal vaginal discharge Speculum Exam - Cervix: normal appearance of the cervix and normal palpation Bimanual exam- vagina & uterus: normal bimanual exam, normal palpation, bladder normal to palpation and normal palpation Bimanual Exam- Adnexa, other: normal adnexae and no masses Office Procedures Cervical Polypectomy Details CPT: 80890 - Cervical Polypectomy Endometrial Biopsy Details: HPI The patient is here today for an endometrial biopsy for AUB to rule out any pathology including atypical, hyperplasia or cancer cells of the uterus. She was counseled regarding anticipatory guidance for the procedure including the risks for pain, infection, bleeding, perforation, potential injury to the tissues may include the cervix, uterus, tubes, bladder and bowels. These injuries may include further treatment and evaluation including surgery, blood transfusions, antibiotics, hospitalizations and anesthesia. Permanent injury and scarring can occur. She was consented for the procedure, and the consent forms were signed. She is agreeable to have the procedure today. All questions were answered. A urine test was obtained and was negative. She denies any risks to . Endometrial Biopsy Procedure The patient was placed in the dorsal lithotomy position and a sterile speculum inserted. Using aseptic technique for the procedure. The cervix was cleansed with Betadine x 3 swabs A single toothed tenaculum was placed on the cervix for stabilization and the uterus was sounded to 10 cm with a 4mm pipelle for 3 passes. Minimal bleeding was observed. The patient tolerated the procedure well and was in good condition when leaving the department. The tissue sample was placed in formalin in a patient labeled container by staff assisting and sent to the pathology department for processing and interpretation. The patient tolerated the procedure well. Endometrial Biopsy Post Procedure Care Nothing in the vagina including: tampons, douching or sex for 3 days. There may be some post procedure bleeding for several days, this bleeding is usually light and may turn to a light brown or pink color. Mild cramps may occur. You may take an over the counter mild analgesic such as Tylenol or Advil (if no allergies) per the manufacturers recommendation on dosing, frequency, and follow the directions completely. Call the office if any: SOB, fatigue, lightheadedness/dizziness, abd pain (worse than cramping), bloating or abd distention, foul odor or abnormal discharge or heavy vaginal bleeding. You will be scheduled for a follow up visit for results, either in person or on the phone when the results are completed in a few weeks. [id number] Biopsy Assessment & Plan Assessment & Plan (1) Abnormal uterine bleeding: Code(s): N93.9 - Abnormal uterine and vaginal bleeding, unspecified Plan: See procedure note. Plan Schedule Ablation consult with MD Orders: Orders Surgical 05/18/23 N93.9 - Abnormal uterine and vaginal bleeding, unspecified Coding Level of Care Code Procedure Only Diagnoses Abnormal uterine bleeding N93.9 CPT Codes Details - CPT: 22130 - Cervical Polypectomy ([id number]) Endometrial Biopsy - CPT: 06901-Mfzlfztquqv Biopsy ([id number]) Comment error: entered for the polypectomy-not done, IT cant fix
== END 2023-05-18 15:29 | disposition home or self-care (01) ==
PROVIDERS: PCP Internal Medicine; Visit Provider Advanced Practice Midwife
DX: N93.9 Abnormal uterine and vaginal bleeding, unspecified (principal)
CPT/HCPCS: 58100

== ENCOUNTER 2023-05-25 09:12 | Outpatient (AMB) | payer OTHER, SELFPAY ==
[2023-05-25 09:18] VITALS: BP 122/74; BMI 26.2
--- NOTE | 2023-05-25 09:18 | A.OFFVIS_ITS ---
Intake Vital Signs 05/25/23 09:18 Height 5 ft 3 in Weight 148 lb BMI 26.2 BP 122/74 Intake Visit Reasons: EMB Results Intake Note: The patient agreed to use of a medical technologist during this encounter. Scribed for TEVIN Fregoso by Vilma Brian medical technologist, on 05/25/2023 at 9:25 am EST Herb Digger Required: No Accompanied by: Allergies No Known Allergies Allergy (Verified 05/25/23 09:18) Is last menstrual period known: Yes Last menstrual period: 05/08/23 Post menopausal: No HPI HPI Comments History of Present Illness Details She presents to discuss test results secondary to AUB. She is accompanied by her , Jonny. She reports 1 episode of irregular bleeding lasting 3 weeks in February. Also reports right sided pain and back yesterday and this morning, resolved. Hx of pyelonephritis. She has an appointment for ablation consult July 11. [facility] Medical History Abnormal uterine bleeding Uterine fibroid Vaginal discharge COVID-19 virus infection Cough Vaginal itching Bacteremia due to Gram-negative bacteria Acute bacterial pyelonephritis [place] Systemic lupus erythematosus Surgical History History of colonoscopy History of tubal ligation Family History Mother Rheumatoid arthritis Stroke Hypertension Sister Rheumatoid arthritis Cervical cancer Paternal Grandfather Colon cancer Maternal Grandfather Colon cancer Prostate cancer Maternal Aunt Colon cancer Social History Housing: House Alcohol intake: current Alcohol intake frequency: a few times a month Alcohol type: beer, wine and hard liquor Patient Tobacco Use Status: Never used Tobacco e-Cigarette/Vaping Use: Never Used Second Hand Smoke Exposure: No service: No Current occupational status: employed Current occupational exposures/hazards: No Sexual orientation: Straight/Heterosexual Gender identity: Female Cognitive needs: No Hearing needs: No Vision needs: Yes Female Reproductive History Menstrual Age of Menarche: 13 Date of last menstrual period: 05/08/23 control method: permanent sterilization Date of last pap smear: 04/06/23 (negative) Review of Systems Const All systems reviewed & are unremarkable except as noted in HPI and below Reports pelvic pain Physical Exam Vital Signs: Last Vital Signs BP 122/74 05/25/23 09:18 BMI result Body Mass Index 26.2 Const General: cooperative, healthy appearing, no acute distress, well developed and alert Results AMB Urinalysis, Automated UA Leukoctes 0 Michael/uL Last Edit by Madisyn Scherer Maxi on 05/25/23 09:56 UA Nitrite Negative Last Edit by Madisyn Scherer [facility] on 05/25/23 09:56 UA Urobilinogen 0 mg/dL Last Edit by Madisyn Scherer [facility] on 05/25/23 09:56 UA Protein 0 mg/dL Last Edit by Madisyn Scherer [facility] on 05/25/23 09:56 UA pH 6 Last Edit by Madisyn Scherer [facility] on 05/25/23 09:56 UA Blood 0 Leonidas/uL Last Edit by Madisyn Scherer [facility] on 05/25/23 09:56 UA Specific [place] 1.020 Last Edit by Madisyn Scherer [facility] on 05/25/23 09: 56 UA Ketone Negative Last Edit by Madisyn Scherer [facility] on 05/25/23 09:56 UA Bilirubin 0 mg/dL Last Edit by Madisyn Scherer [facility] on 05/25/23 09:56 UA Glucose 0 mg/dL Last Edit by Madisyn Scherer [facility] on 05/25/23 09:56 Results Reviewed Results Reviewed: Laboratory Last Values Urine pH (Auto) 6 05/25/23 09:55 Specific [place] (Auto) 1.020 05/25/23 09:55 Urine Protein (Auto) 0 mg/dL 05/25/23 09:55 Glucose (UA)(Auto) 0 mg/dL 05/25/23 09:55 Urine Ketones (Auto) Negative 05/25/23 09:55 Urine Blood (Auto) 0 Leonidas/uL 05/25/23 09:55 Urine Nitrite (Auto) Negative 05/25/23 09:55 Urine Bilirubin (Auto) 0 mg/dL 05/25/23 09:55 Urine Urobilinogen (Auto) 0 mg/dL 05/25/23 09:55 Leukocyte Esterase (Auto) 0 Michael/uL 05/25/23 09:55 05/21/23 Endometrium, biopsy: Predominantly blood and fragments of proliferative endometrium with stromal breakdown; negative for atypia, hyperplasia or malignancy Assessment & Plan Assessment & Plan (1) Abnormal uterine bleeding: Code(s): N93.9 - Abnormal uterine and vaginal bleeding, unspecified Plan: Reviewed test results with patient and . Contact office with any irregular, heavy or prolonged bleeding. RTO for ablation consult 07/11/23. (2) History of pyelonephritis: Code(s): Z87.448 - Personal history of other diseases of urinary system Plan: Urine dip today, negative. Encouraged to stay well hydrated. Follow up with PCP with any further issues. (3) Acute flank pain: Code(s): R10.9 - Unspecified abdominal pain (4) Encounter to discuss test results: Code(s): Z71.2 - Person consulting for explanation of examination or test findings Orders: Orders AMB Urinalysis Automated Today N39.0 - Urinary tract infection, site not specified Coding Level of Care Code Est Pt Level 2 (30573) Diagnoses Abnormal uterine bleeding N93.9 History of pyelonephritis Z87.448 Acute flank pain R10.9 Encounter to discuss test results Z71.2
== END 2023-05-25 09:51 | disposition home or self-care (01) ==
PROVIDERS: PCP Internal Medicine; Visit Provider Advanced Practice Midwife
DX: N93.9 Abnormal uterine and vaginal bleeding, unspecified (principal); Z87.448 Personal history of other diseases of urinary system; R10.9 Unspecified abdominal pain; Z71.2 Person consulting for explanation of examination or test findings; N39.0 Urinary tract infection, site not specified
CPT/HCPCS: 99212

== ENCOUNTER → 2023-05-25 09:12 | Outpatient (BNVA) | payer OTHER, SELFPAY | PROVIDERS: PCP Internal Medicine; Visit Provider Advanced Practice Midwife | DX: Z71.2 Person consulting for explanation of examination or test findings (principal); N93.9 Abnormal uterine and vaginal bleeding, unspecified; Z87.448 Personal history of other diseases of urinary system | CPT/HCPCS: 81003 ==

== ENCOUNTER 2023-06-06 16:27 | Outpatient (AMB) | payer OTHER, SELFPAY ==
[2023-06-06 16:28] VITALS: BP 110/78; PULSE 72; O2SAT 100; BMI 25.9
--- NOTE | 2023-06-06 16:28 | A.OFFPC_ITS ---
Vital Signs 06/06/23 16:28 Height 5 ft 3 in Weight 146 lb 0.6 oz BMI 25.9 BP 110/78 Blood Pressure Location Lt brachial Position Sitting Pulse 72 Pulse Source Pulse Oximeter Temp Source Skin Pulse Oximetry (%) 100 Oxygen Delivery Method Room Air Intake Visit Reasons: Physical exam Intake Note: Patient is here today for a physical. Fly Winder Required: No Allergies No Known Allergies Allergy (Verified 06/06/23 16:42) Medication List - Last Reconciled 06/06/23 by TATYANA Escalante cyanocobalamin (vitamin B-12) 1,000 mcg PO DAILY ferrous sulfate 325 mg PO BID hydroxychloroquine (Plaquenil) 200 mg PO BID ibuprofen 800 mg PO Q8H PRN Tobacco use date assessed: 06/06/23 Dental Screening Dental Screen Date: 06/06/23 Did you have a dental visit in the last 12 months?: Yes Did you have a dental problem in the last 6 months where you did not have access to dental care?: No Was dental information given to patient?: Patient has dentist HPI Physical exam HPI Details Patient is a 48-year-old female who presents today for physical exam. Patient of Dr. Thomas. Medical history significant for SLE-followed by Rheumatology, anemia of chronic disease-patient reports not always compliant with iron, anxiety-stable, vitamin B12 deficiency, calcium oxalate crystals in urine-has order for renal biopsy -will follow-up on this - did not have this done yet. Colonoscopy 04/2020, next due in 2024. Patient will call [facility] for a mammogram. Pap smear normal 03/2023 with [facility]. Patient reports eye and dental exams up-to-date. In addition, patient reports lesion on her left buttock which have been changing for the past 1 year now. In addition, patient reports vomiting about 2 times per week, she starts feeling nauseous and then vomits, usually after meals although can happen any time for the past 4 months, denies blood, reports intermittent acid reflux, does not take anything for this. No changes in bowels. [facility] Medical History Abnormal uterine bleeding Uterine fibroid Vaginal discharge COVID-19 virus infection Cough Vaginal itching Bacteremia due to Gram-negative bacteria Acute bacterial pyelonephritis [place] Systemic lupus erythematosus Surgical History History of colonoscopy History of tubal ligation Family History Mother Rheumatoid arthritis Stroke Hypertension Sister Rheumatoid arthritis Cervical cancer Paternal Grandfather Colon cancer Maternal Grandfather Colon cancer Prostate cancer Maternal Aunt Colon cancer Social History Housing: House Alcohol intake: current Alcohol intake frequency: a few times a month Alcohol type: beer, wine and hard liquor Patient Tobacco Use Status: Never used Tobacco e-Cigarette/Vaping Use: Never Used Second Hand Smoke Exposure: No service: No Current occupational status: employed Current occupational exposures/hazards: No Sexual orientation: Straight/Heterosexual Gender identity: Female Cognitive needs: No Hearing needs: No Vision needs: Yes Female Reproductive History Menstrual Age of Menarche: 13 Questionnaire PHQ-9 Over the last 2 weeks, how often have you been bothered by any of the following problems? 1. Little interest or pleasure in doing things: not at all 2. Feeling down, depressed, or hopeless: not at all 3. Trouble falling or staying asleep, or sleeping too much: not at all 4. Feeling tired or having little energy: not at all 5. Poor appetite or overeating: not at all 6. Feeling bad about yourself - or that you are a failure or have let yourself or your family down: not at all 7. Trouble concentrating on things, such as reading the newspaper or watching television: not at all 8. Moving or speaking so slowly that other people could have noticed. Or the opposite - being so fidgety or restless that you have been moving around a lot more than usual: not at all 9. Thoughts that you would be better off or of hurting yourself in some way: not at all Total score: 0 Depression Screening Interpretation: Negative Depression Screening Done: Yes 42165 - PHQ-9 Billing: Yes Source: Developed by Drs. Sincere Malik, Carmina Finch, Zeke Wheeler and colleagues, with an educational alexia from [employer]. Thrive Questionnaire Date Thrive assessed: 10/09/22 I am a: Patient What is your living situation today?: I have a steady place to live Within the past 12 months, did the food you bought not last and you didn't have the money to get more?: Never true Within the past 12 months, did you worry whether your food would run out before you got money to buy more?: Never true Currently or been in a relationship where the following occur: no concerns reported AUDIT C Alcohol Use Questionnaire (AUDIT-C) 1. How often do you have a drink containing alcohol?: 2-4 times a month 2. How many drinks containing alcohol do you have on a typical day when you are drinking?: 1 or 2 3. How often do you have six or more drinks on one occasion?: Never Total Score: 2 Score Reviewed/Action Taken: No ARLINE-7 AMB Questionnaire ARLINE-7 Date ARLINE - 7 assessed: 10/09/22 Feeling nervous, anxious, or on edge: 1 = Several days Not being able to stop or control worryin = Several days Worrying too much about different things: 1 = Several days Trouble relaxin = Nearly every day Being so restless that it is hard to sit still: 3 = Nearly every day Becoming easily annoyed or irritable: 2 = More than half the days Feeling afraid as if something awful might happen: 1 = Several days Total ARLINE-7 score (0-4 normal; 5-9 mild; 10-14 moderate; 15-21 severe): 12 Source: Developed by Drs. Sincere Malik, Carmina Finch, Zeke Wheeler and colleagues, with an educational alexia from [employer]. ARLINE-7 Assessment Billing ARLINE-7 Assessment Tool: ARLINE-7 Assessment 97484 Review of Systems Const Denies body aches, Denies chills, Denies fever(s) and Denies headache(s) Eyes Denies change in vision ENT Denies dizziness, Denies otalgia, Denies headache(s), Denies nasal discharge, Denies sinus pain and Denies sore throat Card Denies chest pain, Denies edema, Denies lightheadedness and Denies dyspnea Resp Denies cough, Denies dyspnea and Denies wheezing GI Denies abdominal pain, Denies constipation, Reports dyspepsia, Denies diarrhea, Reports nausea and Reports vomiting Denies dysuria Musc Denies myalgias Skin/Breast Reports as per HPI and Denies rash Neuro Denies dizziness and Denies headache(s) Aller/Immun Denies wheezing Physical exam (Primary Care) Vital Signs: Last Vital Signs Pulse 72 06/06/23 16:28 BP 110/78 06/06/23 16:28 Pulse Ox 100 06/06/23 16:28 Oxygen Delivery Method Room Air 06/06/23 16:28 BMI result Body Mass Index 25.9 Tobacco/Smoking Status: Tobacco use Status Tobacco use date assessed 06/06/23 06/06/23 16:29 Patient Tobacco Use Status Never used Tobacco 06/06/23 16:29 e-Cigarette/Vaping Use Never Used 06/06/23 16:29 PHQ-9: PHQ-9 Score PHQ-9: Total score 0 06/06/23 16:40 Depression Screening Interpretation: Negative Thrive Assessment: Date of Thrive Assessment Date Thrive assessed 10/09/22 06/06/23 16:29 Currently or been in a relationship where the following occur: no concerns reported Const General: cooperative and no acute distress Orientation/consciousness: patient oriented x3 HENMT Head: Yes normocephalic and Yes atraumatic Ears: TM's normal bilaterally Face and sinus: Yes sinuses nontender Mouth: oropharynx normal and moist mucous membranes Throat: Yes posterior oropharynx normal Eyes General: appearance normal, both eyes and all related structures Pupils: Equal, round and reactive pupils present EOM: EOMs intact bilaterally Neck Neck: Yes normal visual inspection, Yes full ROM and Yes no lymphadenopathy Thyroid: Thyroid normal Resp Effort & Inspection: normal respiratory effort and able to speak in complete sentences Auscultation: clear to auscultation bilaterally, no crackles, no rales, no rhonchi and no wheezes Cardio Rate: regular rate Rhythm: regular rhythm Heart sounds: S1 normal heart sound present, S2 normal heart sound present and no murmurs GI Palpation (GI): Soft to palpation, not firm, nontender, no guarding, not rigid and no hepatosplenomegaly Auscultation: normal bowel sounds General: No CVA tenderness Back/Spine/Pelvis Back: No CVA tenderness Skin Other: Left buttock about 5 mm slightly raised brown lesion noted, nontender, no signs of infection noted Neuro General: patient oriented x3 Cranial nerves: Yes Equal, round and reactive pupils present Gait exam (Neuro): Normal gait present Extrem General: Yes full ROM and No edema Office Procedures Flu Questionnaire Does the patient have a severe egg allergy?: No Does the patient have severe life threatening allergies?: No Does the patient have a fever or illness today?: No Has the patient ever had Guillain-[place] Syndrome?: No Has the patient ever had any past reaction to a flu shot?: No Immunizations flu vacc [id number] 6mos up(PF) 60 mcg(15 mcgx4)/0.5 mL IM syringe Performing Provider: TATYANA Escalante [facility] [place] [facility] Administered by: JUDAH Mckinley on 06/06/23 16:41 Dose Route Admin Location Dispensed Lot Number Expiration Date [employer] 0.5 mL IM Left Deltoid 0.5 mL [id number] 02/24/24 [id number] [employer] VIS Given Date VIS Provided VIS Publication Date 06/06/23 Single Vaccine 21 Eligibility Eligibility Date Funding Source Not [facility] Eligible 06/06/23 Private Assessment and Plan Assessment & Plan (1) Skin mole: Code(s): D22.9 - Melanocytic nevi, unspecified Plan: Left buttock about 5 mm slightly raised brown lesion noted, nontender, no signs of infection noted Dermatology referral for an evaluation and treatment (2) GERD (gastroesophageal reflux disease): Code(s): K21.9 - Gastro-esophageal reflux disease without esophagitis Plan: Start omeprazole 20 mg daily Avoid acidic foods Follow-up if no improvement in symptoms after finishing treatment (3) Anemia of chronic disease: Code(s): D63.8 - Anemia in other chronic diseases classified elsewhere Plan: Encouraged compliance with iron supplements Patient is to complete blood work (4) Anxiety: Code(s): F41.9 - Anxiety disorder, unspecified Plan: Stable Not on medication, not interested in counseling referral (5) Adult general medical exam: Code(s): Z00.00 - Encounter for general adult medical examination without abnormal findings Orders: Orders Influenza [id number] Immunization Today Z23 - Encounter for immunization Referrals Dermatology Referral D22.9 - Melanocytic nevi, unspecified Medications: New omeprazole 20 mg PO DAILY 30 caps 0RF K21.9 - Gastro-esophageal reflux disease without esophagitis Coding Level of Care Code Est Pt Prev Care 40-64y(62305) Diagnoses Skin mole D22.9 GERD (gastroesophageal reflux disease) K21.9 Anemia of chronic disease D63.8 Anxiety F41.9 Adult general medical exam Z00.00 Additional Codes ARLINE-7 Assessment Billing - ARLINE-7 Assessment Tool: ARLINE-7 Assessment 15205 ([id number])
== END 2023-06-06 17:00 | disposition home or self-care (01) ==
PROVIDERS: PCP Internal Medicine; Visit Provider Nurse Practitioner Family
DX: Z23 Encounter for immunization (principal); Z00.00 Encounter for general adult medical examination without abnormal findings; D22.9 Melanocytic nevi, unspecified; K21.9 Gastro-esophageal reflux disease without esophagitis; D63.8 Anemia in other chronic diseases classified elsewhere
CPT/HCPCS: 90471; 90686; 99396

== ENCOUNTER 2023-06-21 16:49 | Outpatient (REF) | payer OTHER, SELFPAY ==
[2023-06-21 17:01] LABS: MANUAL DIFF FLAG NO
[2023-06-21 17:52] LABS: Basophils Percent Auto 0.3 % (0-2); Eosinophils Percent Auto 0.6 % (0-4); Hematocrit 34.7 % (37.0-47.0); Hemoglobin 10.9 g/dl (12.0-16.0); Lymphocytes Percent Auto 31.7 % (20-40); Mean Corpuscular HGB Conc 31.4 g/dl (31.0-35.0); Mean Corpuscular Hemoglobin 26.7 pg (27.0-33.0); Mean Corpuscular Volume 84.8 fL (80.0-98.0); Mean Platelet Volume 10.2 fL (9.4-12.3); Monocytes Absolute Auto 0.3 X10*3/uL (0.1-1.2); Monocytes Percent Auto 9.7 % (2-11); Neutrophils Absolute Auto 1.8 x10*3/uL (2.0-8.3); Neutrophils Percent Auto 57.7 % (45-73); Platelet Count 209 X10*3/uL (160-400); Red Blood Count 4.09 X10*6/uL (4.20-5.50); Red Cell Distribution Width 15.7 % (11.0-16.0); White Blood Count 3.1 X10*3/uL (4.8-10.8)
[2023-06-21 18:33] LABS: Erythrocyte Sedimentation Rate 25 MM/HR (0-20)
[2023-06-21 18:36] LABS: Alanine Aminotransferase 9 U/L (0-31); Alkaline Phosphatase 65 U/L (39-117); Anion Gap 12 (12-20); Aspartate Amino Transferase 16 U/L (5-31); Bilirubin Total 0.4 mg/dL (0.0-1.0); Blood Urea Nitrogen 15 mg/dL (9-16); C Reactive Protein 0.22 mg/dL (< or = 0.50); Calcium 9.6 mg/dL (8.4-10.2); Carbon Dioxide 24 mmol/L (22-29); Chloride 106 mmol/L (96-108); Estimated Glomerular Filt Rate > 60; Glucose Random 70 mg/dL (60-115); Potassium 3.5 mmol/L (3.3-5.1); Sodium 138 mmol/L (135-145); Total Protein 7.3 g/dL (6.5-8.0)
[2023-06-26 00:28] LABS: Complement C3 107 mg/dL (83-193)
== END 2023-06-21 16:50 | disposition home or self-care (01) ==
LOC: HO.LAB 16:49
PROVIDERS: Absent Provider Nurse Practitioner Family; PCP Internal Medicine; Visit Provider Internal Medicine Rheumatology
DX: M32.9 Systemic lupus erythematosus, unspecified (principal)
CPT/HCPCS: 36415; 80053; 85025; 85652; 86140; 86160

== ENCOUNTER 2023-07-11 14:41 | Outpatient (AMB) | payer OTHER, SELFPAY ==
--- NOTE | 2023-07-11 14:42 | MHC.OFFVIS ---
Intake Vital Signs 07/11/23 14:44 Height 5 ft 3 in Weight 145 lb 8.081 oz BMI 25.8 BP 118/72 Intake Visit Reasons: Ablation Consult Ammonium Nitrate Crystallizer Required: No Information Interpreted: non-clinical & clinical Accompanied by: Spouse Allergies No Known Allergies Allergy (Verified 07/11/23 14:45) Is last menstrual period known: Yes Last menstrual period: 07/07/23 HPI HPI Comments History of Present Illness Details The patient is presenting referred from Yolanda Levy CNM regarding abnormal uterine bleeding peer workup was done: H&H= 10.9/34.7 in 06/18 TSH GC and chlamydia were negative. Endometrial biopsy pathology showed proliferative endometrium with no evidence of hyperplasia and/or malignancy. Co testing was done was negative. Mammogram done in 08/17 was BI-RADS 1. Pelvic ultrasound showed the following: The uterus is heterogeneous and measures 11.3 x 4.3 x 6.7 cm, volume 170.3 mL. 1.2 x 1.0 x 1.1 cm and 0.4 x 0.5 x 0.6 cm hypoechoic areas within the uterus are characteristic of fibroids. No significant free fluid. Endometrial thickness is 1.0 cm. Right ovary measures 2.8 x 1.4 x 1.9 cm, volume 3.9 mL and is unremarkable. Left ovary measures 2.6 x 2.4 x 2.1 cm, volume 6.9 mL and is unremarkable. Visualization of the bilateral ovaries is limited due to bowel gas. Small amount of free fluid in the left adnexa. [facility] Medical History Abnormal uterine bleeding Uterine fibroid Vaginal discharge COVID-19 virus infection Cough Vaginal itching Bacteremia due to Gram-negative bacteria Acute bacterial pyelonephritis [place] Systemic lupus erythematosus Surgical History History of colonoscopy History of tubal ligation Family History Mother Rheumatoid arthritis Stroke Hypertension Sister Rheumatoid arthritis Cervical cancer Paternal Grandfather Colon cancer Maternal Grandfather Colon cancer Prostate cancer Maternal Aunt Colon cancer Social History Housing: House Alcohol intake: current Alcohol intake frequency: a few times a month Alcohol type: beer, wine and hard liquor Patient Tobacco Use Status: Never used Tobacco e-Cigarette/Vaping Use: Never Used Second Hand Smoke Exposure: No service: No Current occupational status: employed Current occupational exposures/hazards: No Sexual orientation: Straight/Heterosexual Gender identity: Female Cognitive needs: No Hearing needs: No Vision needs: Yes Female Reproductive History Menstrual Age of Menarche: 13 Date of last menstrual period: 07/07/23 Review of Systems Const All systems reviewed & are unremarkable except as noted in HPI and below Reports as per HPI and Reports no additional complaints GI Reports no additional complaints Reports no additional complaints Assessment & Plan Assessment & Plan (1) Abnormal uterine bleeding: Code(s): N93.9 - Abnormal uterine and vaginal bleeding, unspecified Plan: Discussed with the patient the results of the work up done and options of treatment including Lysteda, control pills, Depo-Provera (or contraindicated with SLE), Mirena IUD, endometrial ablation and hysterectomy. All pros, cons, risks and benefits if each option was discussed with the patient and the patient decided to think about it and get back to us. Meanwhile instruction given to patient to check with her java developer with security clearance if her anti phospholipid antibody is positive, in this case the risk of VT with Mirena IUD is higher compared to a negative test. The patient will call back with the results her decision. (2) Uterine fibroid: Code(s): D25.9 - Leiomyoma of uterus, unspecified Plan: Discussed with the patient the findings on pelvic ultrasound & the risk of myosarcoma; discussed with the patient the options of treatment including expectant management versus hysterectomy; the pros and cons, risks benefits of each approach were discussed with the patient including the fact that in cases of myosarcoma, surgical treatment can lead to early diagnosis and positively affects the prognosis; after further discussion, the patient decided to proceed with expectant management. Will repeat pelvic ultrasound periodically. Instructions given to patient to call in case any of the following occurs: pressure symptoms, abnormal uterine bleeding, pelvic pain; and to schedule a future office follow-up appointment for reassessment and to order a repeat ultrasound . All questions answered, the patient verbalized understanding and agreed with the plan . Medications: New metronidazole 500 mg PO BID 7 days 14 tabs 0RF Coding Level of Care Code Est Pt Level 3 (26045) Diagnoses Abnormal uterine bleeding N93.9 Uterine fibroid D25.9
[2023-07-11 14:44] VITALS: BP 118/72; BMI 25.8
== END 2023-07-11 15:16 | disposition home or self-care (01) ==
PROVIDERS: PCP Internal Medicine; Visit Provider Obstetrics & Gynecology
DX: N93.9 Abnormal uterine and vaginal bleeding, unspecified (principal); D25.9 Leiomyoma of uterus, unspecified
CPT/HCPCS: 99213

== ENCOUNTER → 2023-07-11 14:41 | Outpatient (BNVA) | payer OTHER, SELFPAY | PROVIDERS: PCP Internal Medicine; Visit Provider Obstetrics & Gynecology ==

== ENCOUNTER 2023-08-02 15:05 | Outpatient (REF) | payer OTHER, SELFPAY ==
[2023-08-02 15:18] LABS: MANUAL DIFF FLAG NO
[2023-08-02 15:38] LABS: Basophils Percent Auto 0.4 % (0-2); Eosinophils Absolute Auto 0.1 X10*3/uL (0.0-0.4); Eosinophils Percent Auto 2.3 % (0-4); Hematocrit 35.1 % (37.0-47.0); Hemoglobin 11.4 g/dl (12.0-16.0); Imm Gran Abs Auto 0.01 X10*3/uL (0.00-0.03); Imm Gran Pct Auto 0.4 % (0.0-0.4); Lymphocytes Absolute Auto 0.9 X10*3/uL (1.2-4.9); Lymphocytes Percent Auto 35.9 % (20-40); Mean Corpuscular HGB Conc 32.5 g/dl (31.0-35.0); Mean Corpuscular Hemoglobin 28.1 pg (27.0-33.0); Mean Corpuscular Volume 86.5 fL (80.0-98.0); Mean Platelet Volume 9.9 fL (9.4-12.3); Monocytes Absolute Auto 0.3 X10*3/uL (0.1-1.2); Monocytes Percent Auto 12.9 % (2-11); Neutrophils Absolute Auto 1.2 x10*3/uL (2.0-8.3); Neutrophils Percent Auto 48.1 % (45-73); Platelet Count 185 X10*3/uL (160-400); Red Blood Count 4.06 X10*6/uL (4.20-5.50); Red Cell Distribution Width 14.7 % (11.0-16.0); White Blood Count 2.6 X10*3/uL (4.8-10.8)
[2023-08-02 16:13] LABS: Alanine Aminotransferase 14 U/L (0-31); Albumin Level 3.7 g/dL (3.5-5.0); Alkaline Phosphatase 62 U/L (39-117); Anion Gap 9 (12-20); Aspartate Amino Transferase 22 U/L (5-31); Bilirubin Total 0.4 mg/dL (0.0-1.0); Blood Urea Nitrogen 14 mg/dL (9-16); C Reactive Protein 0.22 mg/dL (< or = 0.50); Calcium 8.8 mg/dL (8.4-10.2); Carbon Dioxide 26 mmol/L (22-29); Chloride 107 mmol/L (96-108); Estimated Glomerular Filt Rate > 60; Glucose Random 103 mg/dL (60-115); Potassium 3.7 mmol/L (3.3-5.1); Sodium 138 mmol/L (135-145); Total Protein 6.8 g/dL (6.5-8.0)
[2023-08-02 16:16] LABS: Erythrocyte Sedimentation Rate 16 MM/HR (0-20)
[2023-08-07 19:24] LABS: Complement C3 100 mg/dL (83-193)
== END 2023-08-02 15:06 | disposition home or self-care (01) ==
LOC: HO.LABR 15:05
PROVIDERS: PCP Internal Medicine; Visit Provider Internal Medicine Rheumatology
DX: M32.9 Systemic lupus erythematosus, unspecified (principal)
CPT/HCPCS: 36415; 80053; 85025; 85652; 86140; 86160

== ENCOUNTER 2023-08-02 15:34 | Outpatient (REF) | payer OTHER, SELFPAY ==
--- NOTE | ~2023-08-02 | MM_ITS ---
EXAMINATION: MM SCREENING DIGITAL BREAST TOMOSYNTHESIS, BILATERAL CLINICAL INFORMATION: Screening. Asymptomatic. COMPARISON: Mammography: 07/31/2022, 08/05/2021, 07/26/2021, 06/22/2020, 06/17/2019, and dating back to 2014. TECHNIQUE: Digital breast tomosynthesis is performed in both the craniocaudal and mediolateral oblique views along with computer-aided detection (CAD). Synthesized 2D images are generated from the tomosynthesis. FINDINGS: The breasts are heterogeneously dense, which may obscure small masses (ACR BI-RADS breast composition Category c). Stable benign type calcifications upper outer right breast. There are no suspicious masses, suspicious grouped calcifications, or areas of architectural distortion in either breast. The parenchymal pattern is stable from prior exams. MM/MM tomosynthesis screening BI IMPRESSION: No mammographic evidence of malignancy. Stable benign findings. ASSESSMENT: BI-RADS BI-RADS 2 - Benign Findings RECOMMENDATION: Routine annual mammography screening. 1 year F/U This examination should not preclude the clinical evaluation of a suspicious palpable abnormality. This patient's information was entered into a reminder system with a target due date for their next mammogram.
== END 2023-08-02 15:35 | disposition home or self-care (01) ==
LOC: HO.MAMMO 15:34
PROVIDERS: PCP Internal Medicine; Visit Provider Internal Medicine
DX: Z12.31 Encounter for screening mammogram for malignant neoplasm of breast (principal)
CPT/HCPCS: 77063; 77067

== ENCOUNTER → 2023-08-02 16:00 | Outpatient (BNV) | payer OTHER, SELFPAY | PROVIDERS: PCP Internal Medicine; Visit Provider Radiology Diagnostic Radiology | DX: Z12.31 Encounter for screening mammogram for malignant neoplasm of breast (principal) | CPT/HCPCS: 77063; 77067 ==

== ENCOUNTER 2023-09-25 15:03 | Outpatient (REF) | payer OTHER, SELFPAY ==
[2023-09-25 16:10] LABS: Basophils Percent Auto 0.4 % (0-2); Eosinophils Absolute Auto 0.1 X10*3/uL (0.0-0.4); Eosinophils Percent Auto 3.4 % (0-4); Hematocrit 35.9 % (37.0-47.0); Hemoglobin 11.7 g/dl (12.0-16.0); Lymphocytes Absolute Auto 0.9 X10*3/uL (1.2-4.9); Lymphocytes Percent Auto 36.6 % (20-40); MANUAL DIFF FLAG SCAN; Mean Corpuscular HGB Conc 32.6 g/dl (31.0-35.0); Mean Corpuscular Hemoglobin 28.2 pg (27.0-33.0); Mean Corpuscular Volume 86.5 fL (80.0-98.0); Mean Platelet Volume 9.7 fL (9.4-12.3); Monocytes Absolute Auto 0.3 X10*3/uL (0.1-1.2); Monocytes Percent Auto 12.6 % (2-11); Neutrophils Absolute Auto 1.1 x10*3/uL (2.0-8.3); Platelet Count 224 X10*3/uL (160-400); Red Blood Count 4.15 X10*6/uL (4.20-5.50); Red Cell Distribution Width 12.7 % (11.0-16.0); SCAN SMEAR FLAG 1
[2023-09-25 16:27] LABS: White Blood Count 2.4 X10*3/uL (4.8-10.8)
[2023-09-25 16:32] LABS: Alanine Aminotransferase 17 U/L (0-31); Albumin Level 3.6 g/dL (3.5-5.0); Alkaline Phosphatase 65 U/L (39-117); Anion Gap 12 (12-20); Aspartate Amino Transferase 21 U/L (5-31); Bilirubin Total 0.3 mg/dL (0.0-1.0); Blood Urea Nitrogen 14 mg/dL (9-16); C Reactive Protein 0.18 mg/dL (< or = 0.50); Calcium 8.9 mg/dL (8.4-10.2); Carbon Dioxide 25 mmol/L (22-29); Chloride 109 mmol/L (96-108); Estimated Glomerular Filt Rate > 60; Glucose Random 75 mg/dL (60-115); Potassium 3.9 mmol/L (3.3-5.1); Sodium 142 mmol/L (135-145); Total Protein 6.8 g/dL (6.5-8.0)
[2023-09-25 17:23] LABS: Erythrocyte Sedimentation Rate 18 MM/HR (0-20); SLIDE REVIEW VERIFIED
[2023-09-27 13:44] LABS: Complement C3 119 mg/dL (83-193)
== END 2023-09-25 15:04 | disposition home or self-care (01) ==
LOC: HO.LAB 15:03
PROVIDERS: PCP Internal Medicine; Visit Provider Internal Medicine Rheumatology
DX: M32.9 Systemic lupus erythematosus, unspecified (principal)
CPT/HCPCS: 36415; 80053; 85025; 85652; 86140; 86160

== ENCOUNTER 2023-11-01 10:14 | Outpatient (REF) | payer OTHER, SELFPAY ==
--- NOTE | ~2023-11-01 | XR_ITS ---
EXAMINATION: XR LUMBOSACRAL SPINE CLINICAL INFORMATION: Back pain. COMPARISON: [facility] of 09/19/2022. X-ray lumbar spine of 04/21/2022. MRI lumbar spine 10/11/2021. TECHNIQUE: 3 views of the lumbar spine. FINDINGS: Multiple rounded pelvic calcifications are likely vascular. Moderate degenerative changes in the bilateral sacroiliac joints. Slight leftward curvature of the lumbar spine. Straightening of the normal lumbar lordosis. Redemonstration of a sclerotic lesion overlying the L3 vertebral body, similar in appearance compared with radiographs of 04/21/2022. This was also identified on MR lumbar spine 10/11/[address] abdomen and pelvis of 08/15/2021. Mild multilevel lumbar spondylosis with mild loss of disc space height at L5-S1. Facet arthritis in the lower lumbar spine. XR/XR lumbar spine 2-3V IMPRESSION: 1. Redemonstration of a sclerotic lesion overlying the L3 vertebral body, similar in appearance compared with radiographs of 04/21/2022. This was also identified on MR lumbar spine 10/11/[address] abdomen and pelvis of 08/15/2021. 2. Mild multilevel lumbar spondylosis with mild loss of disc space height at L5-S1. Facet arthritis in the lower lumbar spine.
== END 2023-11-01 10:15 | disposition home or self-care (01) ==
LOC: HO.XRAY 10:14
PROVIDERS: PCP Internal Medicine; Visit Provider Internal Medicine
DX: M54.9 Dorsalgia, unspecified (principal)
CPT/HCPCS: 72100

== ENCOUNTER 2024-01-28 15:51 | Outpatient (REF) | payer OTHER, SELFPAY ==
--- NOTE | ~2024-01-28 | US_ITS ---
EXAMINATION: US THYROID CLINICAL INFORMATION: Nontoxic single thyroid nodule. COMPARISON: None available. TECHNIQUE: Linear transducer grayscale and color Doppler examination with attention to the region of the thyroid. FINDINGS: SIZE: Measurements of the thyroid lobes and nodules are given in sagittal, anteroposterior and transverse dimensions respectively. Right Thyroid Lobe: 4.9 x 1.1 x 1.2 cm, volume 3.4 mL. Parenchyma: The gland echotexture is homogeneous. Thyroid vascularity is normal. Left Thyroid Lobe: 3.8 x 0.9 x 1.5 cm, volume 2.7 mL. Parenchyma: The gland echotexture is homogeneous. Thyroid vascularity is normal. Isthmus: 0.3 cm in maximum AP dimension. Estimated total number of nodules greater than or equal to 1 cm: 1. [employer] Architect nodules are described as follows: 1. Location: Left isthmus. Size: 0.3 x 0.2 x 0.4 cm, volume 0.02 mL. Nodule characteristics: Composition: Solid (2). Echogenicity: Isoechoic (1). Shape: Not taller than wide (0). Margins: Irregular (2). Echogenic Foci: None (0). ACR TI-RADS total points: 5 ACR TI-RADS category: 4 Location: Inferior to left thyroid. Size: 3.6 x 3.2 x 2.5 cm, volume 14.8 mL. Nodule characteristics: Composition: Solid/almost completely solid (2). Echogenicity: Isoechoic (1). Shape: Not taller than wide (0). Margins: Irregular (2). Echogenic Foci: Punctate echogenic foci (3). ACR TI-RADS total points: 8 ACR TI-RADS category: 5, ? Abnormal thyroid nodule versus abnormal parathyroid gland or other abnormality. NODES: No lymphadenopathy is seen in the tissue surrounding the thyroid gland. ADDITIONAL FINDINGS: Inferior to the right lobe of the thyroid gland, a 1.0 x 0.4 x 0.5 cm solid homogeneous nodular density,? Ectopic thyroid tissue versus parathyroid gland. US/US thyroid IMPRESSION: 1. 3.6 cm solid nodule inferior to the left lobe of the thyroid gland, TR 5. Abnormal thyroid nodule versus abnormal parathyroid gland or other abnormality. FNA could be considered. 2. 1.0 cm solid homogeneous nodular density inferior to the right lobe of the thyroid gland,? Ectopic thyroid tissue versus parathyroid gland. Follow-up ultrasound in one year is recommended. ACR TI-RADS RECOMMENDATION REFERENCE: Ultrasound-guided fine-needle aspiration, followup ultrasound, no further follow up. * TR1 (0 point) and TR2 (2 points): No FNA or follow up. * TR3 (3 points): FNA if more than or equal to 2.5 cm in maximum dimension, followup ultrasound in 1, 3 and 5 years if 1.5 to 2.4 cm in maximum dimension. * TR4 (4-6 points): FNA if more than or equal to 1.5 cm in maximum dimension, followup ultrasound in 1, 2, 3 and 5 years if 1 to 1.4 cm in maximum dimension. * TR5 (more than or equal to 7 points): FNA if more than or equal to 1 cm in maximum dimension, followup ultrasound every year for 5 years if 0.5 to 0.9 cm in maximum dimension. * TR3, TR4 or TR5 nodules that are below the size threshold for followup receive no follow up.
== END 2024-01-28 15:52 | disposition home or self-care (01) ==
LOC: HO.US 15:51
PROVIDERS: PCP Internal Medicine; Visit Provider Internal Medicine
DX: E04.1 Nontoxic single thyroid nodule (principal)
CPT/HCPCS: 76536

== ENCOUNTER 2024-01-30 17:06 | Outpatient (AMB) | payer OTHER, SELFPAY ==
--- NOTE | 2024-01-30 17:12 | A.OFFPC_ITS ---
Vital Signs 01/30/24 17:15 Height 5 ft 3 in Weight 146 lb BMI 25.9 BP 118/80 Blood Pressure Location Lt brachial Position Sitting Intake Visit Reasons: discharge follow Intake Note: Patient here for discharged follow up Police Manager Required: No Accompanied by: Self / Same As Patient Allergies No Known Allergies Allergy (Verified 01/30/24 17:30) Medication List - Last Reconciled 01/30/24 by Deisy Adrian MD cyanocobalamin (vitamin B-12) 1,000 mcg PO DAILY ferrous sulfate 325 mg PO BID hydroxychloroquine (Plaquenil) 200 mg PO BID simethicone 80 mg PO QID Tobacco use date assessed: 01/30/24 Dental Screening Dental Screen Date: 01/30/24 Did you have a dental visit in the last 12 months?: Yes Did you have a dental problem in the last 6 months where you did not have access to dental care?: No Was dental information given to patient?: Patient has dentist HPI HPI Comments History of Present Illness Details This is a 48-year-old female with lupus, anemia of chronic disease, B12 deficiency and low vitamin-D that comes today complaining of shortness of breaths that has been present after her hysterectomy. OBGYN did a CT scan angiogram that rule out pulmonary embolism but shows a thyroid nodule, bilateral axillary lymphadenopathy in which the largest 1 is on the right and measures 8 mm and ground-glass opacities in lower base of both lungs. She has pulmonology appointment tomorrow. I order ultrasound of the thyroid and results are still pending. I will order thyroid function testing. She has bilateral axillary lymphadenopathy which is not palpable and last mammogram was 08/15/2023 which was benign. I will send her to General surgery for evaluation of lymph node biopsy and order ultrasound of the breast and diagnostic mammogram. On ferrous sulfate for her anemia. On hydroxychloroquine for her lupus that is follow by airplane pilot crop dusting Dr. Villar. On vitamin B12 and vitamin-D supplements and levels will be ordered. No chest pain. She is accompanied today by . [facility], [facility] Medical History (Updated 01/30/24 @ 18:15 by Deisy Adrian MD) Abnormal uterine bleeding Uterine fibroid Vaginal discharge COVID-19 virus infection Cough Vaginal itching Bacteremia due to Gram-negative bacteria Acute bacterial pyelonephritis [place] Systemic lupus erythematosus Surgical History History of colonoscopy History of tubal ligation Family History Mother Rheumatoid arthritis Stroke Hypertension Sister Rheumatoid arthritis Cervical cancer Paternal Grandfather Colon cancer Maternal Grandfather Colon cancer Prostate cancer Maternal Aunt Colon cancer Social History Housing: House Alcohol intake: current Alcohol intake frequency: a few times a month Alcohol type: beer, wine and hard liquor Patient Tobacco Use Status: Never used Tobacco e-Cigarette/Vaping Use: Never Used Second Hand Smoke Exposure: No service: No Current occupational status: employed Current occupational exposures/hazards: No Sexual orientation: Straight/Heterosexual Gender identity: Female Cognitive needs: No Hearing needs: No Vision needs: Yes Female Reproductive History Menstrual Age of Menarche: 13 Questionnaire PHQ-9 Over the last 2 weeks, how often have you been bothered by any of the following problems? 1. Little interest or pleasure in doing things: not at all 2. Feeling down, depressed, or hopeless: not at all 3. Trouble falling or staying asleep, or sleeping too much: not at all 4. Feeling tired or having little energy: not at all 5. Poor appetite or overeating: not at all 6. Feeling bad about yourself - or that you are a failure or have let yourself or your family down: not at all 7. Trouble concentrating on things, such as reading the newspaper or watching television: not at all 8. Moving or speaking so slowly that other people could have noticed. Or the opposite - being so fidgety or restless that you have been moving around a lot more than usual: not at all 9. Thoughts that you would be better off or of hurting yourself in some way: not at all Total score: 0 Source: Developed by Drs. Sincere Malik, Carmina Finch, Zeke Wheeler and colleagues, with an educational alexia from [employer]. Thrive Questionnaire Date Thrive assessed: 01/30/24 I am a: Patient What is your living situation today?: I have a steady place to live Within the past 12 months, did the food you bought not last and you didn't have the money to get more?: Never true Within the past 12 months, did you worry whether your food would run out before you got money to buy more?: Never true Do you have trouble paying for medicines?: No Do you have trouble getting transportation to medical appointments?: No Do you have trouble paying your heating and electricity bill?: No Do you have trouble taking care of your child, family member or friend?: No Do you have trouble with day-to-day activities such as bathing, preparing meals, shopping, managing finances, etc.?: No Are you currently unemployed and looking for a job?: No Are you interested in more education?: No Please select the resources that you would like help with: None Currently or been in a relationship where the following occur: no concerns reported THRIVE Score: 0 AUDIT C Alcohol Use Questionnaire (AUDIT-C) 1. How often do you have a drink containing alcohol?: Monthly or less 2. How many drinks containing alcohol do you have on a typical day when you are drinking?: 1 or 2 3. How often do you have six or more drinks on one occasion?: Never Total Score: 1 ARLINE-7 AMB Questionnaire ARLINE-7 Date ARLINE - 7 assessed: 01/30/24 Feeling nervous, anxious, or on edge: 1 = Several days Not being able to stop or control worryin = Not at all Worrying too much about different things: 0 = Not at all Trouble relaxin = Not at all Being so restless that it is hard to sit still: 0 = Not at all Becoming easily annoyed or irritable: 0 = Not at all Feeling afraid as if something awful might happen: 0 = Not at all Total ARLINE-7 score (0-4 normal; 5-9 mild; 10-14 moderate; 15-21 severe): 1 Source: Developed by Drs. Sincere Malik, Carmina Finch, Zeke Wheeler and colleagues, with an educational alexia from [employer]. Review of Systems Const All systems reviewed & are unremarkable except as noted in HPI and below Card Denies chest pain at rest, Denies chest pain with activity, Denies edema, Denies irregular heart rhythm, Denies claudication, Denies dyspnea, Denies dyspnea on exertion, Denies orthopnea, Denies paroxysmal nocturnal dyspnea and Denies slow heart rate Resp Denies cough, Denies dyspnea and Denies dyspnea on exertion Physical exam (Primary Care) Vital Signs: Last Vital Signs BP 118/80 01/30/24 17:15 BMI result Body Mass Index 25.9 Tobacco/Smoking Status: Tobacco use Status Tobacco use date assessed 01/30/24 01/30/24 17:25 Patient Tobacco Use Status Never used Tobacco 01/30/24 17:12 e-Cigarette/Vaping Use Never Used 01/30/24 17:12 PHQ-9: PHQ-9 Score PHQ-9: Total score 0 01/30/24 17:25 Thrive Assessment: Date of Thrive Assessment Date Thrive assessed 01/30/24 01/30/24 17:25 Currently or been in a relationship where the following occur: no concerns reported Neck Thyroid: multiple palpable nodules Chest Breast/axilla palpation: normal palpation of the axillae Resp Effort & Inspection: normal respiratory effort Auscultation: clear to auscultation bilaterally Cardio Jugular venous distension: no JVD Rate: regular rate Rhythm: regular rhythm Heart sounds: S1 normal heart sound present and S2 normal heart sound present Extrem General: Yes full ROM Assessment and Plan Assessment & Plan (1) Axillary lymphadenopathy: Code(s): R59.0 - Localized enlarged lymph nodes Plan: Ultrasound of the breast and mammogram ordered. Referred to surgeon. (2) Thyroid nodule: Code(s): E04.1 - Nontoxic single thyroid nodule Plan: Ultrasound of the thyroid ordered. (3) Systemic lupus erythematosus: Code(s): M32.9 - Systemic lupus erythematosus, unspecified Qualifiers: Systemic lupus erythematosus type: other Systemic lupus erythematosus organ involvement: unspecified Qualified Code(s): M32.8 - Other forms of systemic lupus erythematosus Plan: Continue hydroxychloroquine. Follow-up with rheumatology. (4) B12 deficiency: Code(s): E53.8 - Deficiency of other specified B group vitamins Plan: Continue vitamin B12 supplements. (5) Low vitamin D level: Code(s): R79.89 - Other specified abnormal findings of blood chemistry Plan: Continue vitamin-D supplements. (6) Anemia of chronic disease: Code(s): D63.8 - Anemia in other chronic diseases classified elsewhere Plan: Continue ferrous sulfate. Orders: Orders Vitamin B12 and Folate Today E53.8 - Deficiency of other specified B group vitamins Vitamin D 25-OH Total Today E55.9 - Vitamin D deficiency, unspecified Thyroglobulin Antibodies Today E04.1 - Nontoxic single thyroid nodule Thyroid Peroxidase Antibodies Today E04.1 - Nontoxic single thyroid nodule US breast LT complete Today R59.0 - Localized enlarged lymph nodes US breast RT complete Today R59.0 - Localized enlarged lymph nodes MM diagnostic mammo BI Today R59.0 - Localized enlarged lymph nodes Complete Blood Count Auto Diff Today D64.9 - Anemia, unspecified IRON PROFILE Today D64.9 - Anemia, unspecified Thyroid Stimulating Hormone Today E04.1 - Nontoxic single thyroid nodule Free T4 (Free Thyroxine) Today E04.1 - Nontoxic single thyroid nodule Referrals General Surgery Referral R59.0 - Localized enlarged lymph nodes Coding Level of Care Code Est Pt Level 4 (88710) Complex EM visit Add On G2211 Diagnoses Axillary lymphadenopathy R59.0 Thyroid nodule E04.1 Other forms of systemic lupus erythematosus, unspecified organ involvement status M32.8 Systemic lupus erythematosus type: other Systemic lupus erythematosus organ involvement: unspecified B12 deficiency E53.8 Low vitamin D level R79.89 Anemia of chronic disease D63.8 Time Spent (min) 23
[2024-01-30 17:15] VITALS: BP 118/80; BMI 25.9
== END 2024-01-30 17:43 | disposition home or self-care (01) ==
PROVIDERS: PCP Internal Medicine; Visit Provider Internal Medicine
DX: R59.0 Localized enlarged lymph nodes (principal); E04.1 Nontoxic single thyroid nodule; M32.8 Other forms of systemic lupus erythematosus; E53.8 Deficiency of other specified B group vitamins; R79.89 Other specified abnormal findings of blood chemistry; D63.8 Anemia in other chronic diseases classified elsewhere
CPT/HCPCS: 99214; G2211

== ENCOUNTER 2024-01-31 09:18 | Outpatient (AMB) | payer OTHER, SELFPAY ==
[2024-01-31 09:27] VITALS: PULSE 75; O2SAT 99; BMI 25.9
--- NOTE | 2024-01-31 09:27 | A.OFFVIS_ITS ---
Vital Signs 01/31/24 09:27 Height 5 ft 3 in Weight 146 lb BMI 25.9 Pulse 75 Pulse Source Pulse Oximeter Pulse Oximetry (%) 99 Oxygen Delivery Method Room Air Intake Visit Reasons: Abnormal CTA Sterilizer Operator Required: No Allergies No Known Allergies Allergy (Verified 01/31/24 09:28) HPI Comments Details: The patient is here for pulmonary evaluation. The patient is a 48-year-old woman with a known history of lupus who apparently underwent a hysterectomy at [facility]. The surgery went well without any apparent complications. Although after the surgery the patient started developing worsening shortness of breath. Moderate severity. She went back to [facility]. Because of her sister lupus she did undergo a CTA to rule out pulmonary emboli. The patient did not have any emboli. Her office is a little dilated with some fuzziness suggesting some fluid. In addition to that she has not ground-glass opacities primarily in the left base more than the right. Appeared to be some degree mosaic pattern likely some degree of pneumonitis. The patient also had a thyroid nodule and also lymphadenopathy primarily in the axilla. She was able to go home. She discharged home with follow-up. She was given simethicone that seems to be helping some degree. She still has episodic shortness of breath. She does have some minimal wheezing on examination primarily in the right front area. Therefore will try inhaler. In the meantime we did look at all the images together. It appears to be potentially microaspiration post anesthesia resulting in some degree of pneumonitis and air trapping. This probably resulting in some reactive airways. I do not believe that this is ongoing connective tissue disease related interstitial lung disease. Will go ahead and request blood work doubt at this time. [facility] Medical History (Updated 01/31/24 @ 23:06 by Zana Rangel MD) Dyspnea Allergies Pneumonitis Abnormal uterine bleeding Uterine fibroid Vaginal discharge COVID-19 virus infection Cough Vaginal itching Bacteremia due to Gram-negative bacteria Acute bacterial pyelonephritis [place] Systemic lupus erythematosus Surgical History History of colonoscopy History of tubal ligation Family History Mother Rheumatoid arthritis Stroke Hypertension Sister Rheumatoid arthritis Cervical cancer Paternal Grandfather Colon cancer Maternal Grandfather Colon cancer Prostate cancer Maternal Aunt Colon cancer Social History Housing: House Alcohol intake: current Alcohol intake frequency: a few times a month Alcohol type: beer, wine and hard liquor Patient Tobacco Use Status: Never used Tobacco e-Cigarette/Vaping Use: Never Used Second Hand Smoke Exposure: No service: No Current occupational status: employed Current occupational exposures/hazards: No Sexual orientation: Straight/Heterosexual Gender identity: Female Cognitive needs: No Hearing needs: No Vision needs: Yes Female Reproductive History Menstrual Age of Menarche: 13 Review of Systems Const Denies fever(s) Eyes Reports dry eyes ENT Denies nasal congestion Card Denies chest pain and Reports dyspnea Resp Reports cough and Reports dyspnea GI Reports GI cramping Reports as per HPI Musc Reports no additional complaints Skin/Breast Denies rash Bony/Lymph Reports lymphadenopathy Physical Exam Vital Signs: Last Vital Signs Pulse 75 01/31/24 09:27 Pulse Ox 99 01/31/24 09:27 Oxygen Delivery Method Room Air 01/31/24 09:27 BMI result Body Mass Index 25.9 Const General: comfortable HEENT Head: Yes normocephalic Neck Neck: Yes supple Chest Chest palpation & inspection: normal inspection of the chest Resp Effort & Inspection: normal respiratory effort Auscultation: wheezes expiratory wheezes and anterior Cardio Heart sounds: S1 normal heart sound present and S2 normal heart sound present GI Palpation (GI): Soft to palpation Skin General skin exam: no rashes or lesions noted Extrem General: Yes no clubbing, cyanosis or edema Assessment & Plan Assessment & Plan (1) Pneumonitis: Comment: suspect aspiration pneumonitis post op. Also reaction to anesthesia. Less likely CTD related. Code(s): J98.4 - Other disorders of lung Category: Medical (2) Allergies: Code(s): T78.40XA - Allergy, unspecified, initial encounter Category: Medical Qualifiers: Encounter type: initial encounter Qualified Code(s): T78.40XA - Allergy, unspecified, initial encounter (3) Dyspnea: Code(s): R06.00 - Dyspnea, unspecified Category: Medical Qualifiers: Dyspnea type: shortness of breath Qualified Code(s): R06.02 - Shortness of breath (4) Thyroid nodule: Code(s): E04.1 - Nontoxic single thyroid nodule Category: Medical (5) Axillary lymphadenopathy: Comment: appears reactive Code(s): R59.0 - Localized enlarged lymph nodes Category: Medical Plan LAVINIA as needed bloodwork and allergy testing continue plaquenil s/p thyroid US Will need a repeat CT chest 3-6 months F/U in 2 months Orders: Orders Anti DNA DS Antibody Today J98.4 - Other disorders of lung STEVE Reflex Titer and Pattern Today J98.4 - Other disorders of lung Sjogren's Antibodies Today J98.4 - Other disorders of lung Resp Allergy Profile Region I Today J98.4 - Other disorders of lung, R91.1 - Solitary pulmonary nodule, T78.40XA - Allergy, unspecified, initial encounter Immunoglobulin G Subclasses Today J98.4 - Other disorders of lung Immunoglobulin E Today J98.4 - Other disorders of lung Cyclic Citrullinated Peptide Today J98.4 - Other disorders of lung Complete Blood Count Auto Diff Today J98.4 - Other disorders of lung Erythrocyte Sedimentation Rate Today J98.4 - Other disorders of lung Medications: New albuterol sulfate 90 mcg/actuation 2 inhalations inhalation Q6H PRN 18 grams 12RF shortness of breath or wheezing 30 days J44.9 - Chronic obstructive pulmonary disease, unspecified Coding Level of Care Code New Pt Level 4 (96215) Diagnoses Pneumonitis J98.4 Allergy, initial encounter T78.40XA Encounter type: initial encounter Shortness of breath R06.02 Dyspnea type: shortness of breath Thyroid nodule E04.1 Axillary lymphadenopathy R59.0 Time Spent (min) 40
== END 2024-01-31 10:00 | disposition home or self-care (01) ==
PROVIDERS: PCP Internal Medicine; Referring Provider Internal Medicine; Visit Provider Hospitalist
DX: J98.4 Other disorders of lung (principal); T78.40XA Allergy, unspecified, initial encounter; R06.02 Shortness of breath; E04.1 Nontoxic single thyroid nodule; R59.0 Localized enlarged lymph nodes
CPT/HCPCS: 99204

== ENCOUNTER 2024-01-31 09:18 | Outpatient (REF) | payer OTHER, SELFPAY ==
[2024-01-31 16:16] LABS: Basophils Percent Auto 0.8 % (0-2); Eosinophils Absolute Auto 0.1 X10*3/uL (0.0-0.4); Eosinophils Percent Auto 3.6 % (0-4); Hematocrit 36.4 % (37.0-47.0); Hemoglobin 11.5 g/dl (12.0-16.0); Imm Gran Abs Auto 0.01 X10*3/uL (0.00-0.03); Imm Gran Pct Auto 0.4 % (0.0-0.4); Lymphocytes Absolute Auto 0.8 X10*3/uL (1.2-4.9); Mean Corpuscular HGB Conc 31.6 g/dl (31.0-35.0); Mean Corpuscular Hemoglobin 27.3 pg (27.0-33.0); Mean Corpuscular Volume 86.3 fL (80.0-98.0); Mean Platelet Volume 10.4 fL (9.4-12.3); Monocytes Absolute Auto 0.2 X10*3/uL (0.1-1.2); Monocytes Percent Auto 9.3 % (2-11); Neutrophils Absolute Auto 1.3 x10*3/uL (2.0-8.3); Neutrophils Percent Auto 51.9 % (45-73); Platelet Count 200 X10*3/uL (160-400); Red Blood Count 4.22 X10*6/uL (4.20-5.50); Red Cell Distribution Width 13.2 % (11.0-16.0); SCAN SMEAR FLAG 1
[2024-01-31 16:42] LABS: MANUAL DIFF FLAG NO; White Blood Count 2.5 X10*3/uL (4.8-10.8)
[2024-01-31 16:48] LABS: Iron 45 mcg/dL (30-160); Percent Iron Saturation 16 % (15-50); Total Iron Binding Capacity 289 mcg/dL (228-428); Unsaturated Iron Binding 244 ug/dL
[2024-01-31 16:54] LABS: Free T4 (Free Thyroxine) 0.95 ng/dL (0.71-1.85); Thyroid Stimulating Hormone 0.91 uIU/mL (0.32-4.0); Vitamin D 25-OH Total 25.4 ng/mL (>30)
[2024-01-31 17:09] LABS: Folate 12.8 ng/mL (> or = 4.0); Vitamin B12 306 pg/mL (200-900)
[2024-01-31 18:05] LABS: Erythrocyte Sedimentation Rate 23 MM/HR (0-20)
[2024-02-01 21:59] LABS: Thyroglobulin Antibodies <1 IU/mL (< or = 1); Thyroid Peroxidase Antibodies 2 IU/mL (<9)
[2024-02-03 14:13] LABS: Anti Nuclear Antibody Screen POSITIVE (NEGATIVE)
[2024-02-04 16:48] LABS: Immunoglobulin G Subclass 1 652 mg/dL (382-929); Immunoglobulin G Subclass 2 397 mg/dL (241-700); Immunoglobulin G Subclass 3 44 mg/dL (22-178); Immunoglobulin G Subclass 4 17.8 mg/dL (4-86); Immunoglobulin G Total 1160 mg/dL (600-1640)
[2024-02-04 17:07] LABS: Anti DNA DS Antibody 1 IU/mL; Antibody to SS-A Antigen >8.0 POS AI (<1.0 NEG); Antibody to SS-B Antigen >8.0 POS AI (<1.0 NEG)
[2024-02-04 20:43] LABS: Cyclic Citrullinated Peptide <16 UNITS
[2024-02-04 23:43] LABS: Class Alternaria alternata 0; Class Aspergillus fumigatus 0; Class Bermuda Grass 0; Class Birch 0; Class Cat Dander 0; Class Cladosporium herbarum 0; Class Cockroach 0; Class Common Ragweed 0; Class Cottonwood 0; Class Derm. pterony 0; Class Dermatophagoides farinae 0; Class Dog Dander 0; Class Elm 0; Class Maple Box Elder 0; Class Mountain Cedar 0; Class Mouse Urine Protein 0; Class Mugwort 0; Class Oak 0; Class Penicillium crysogenum 0; Class Rough Pigweed 0; Class Sheep Sorrel 0; Class Sycamore 0; Class Timothy Grass 0; Class Walnut Tree 0; Class White Ash 0; Class White Mulberry 0; D001 IgE D pteronyssinus <0.10 kU/L; D002 - IgE D farinae <0.10 kU/L; E001 - IgE Cat Dander <0.10 kU/L; E005 - IgE Dog Dander <0.10 kU/L; E072-IgE Mouse Urine <0.10 kU/L; G002 IgE Bermuda Grass <0.10 kU/L; G006 - IgE Timothy Grass <0.10 kU/L; I006-IgE Cockroach, German <0.10 kU/L; Immunoglobulin E 5 kU/L (<OR=114); M001 IgE Penicillium chrysogen <0.10 kU/L; M002 - IgE Cladosporium herbar <0.10 kU/L; M003 - IgE Aspergillus fumigat <0.10 kU/L; M006 - IgE Alternaria alternat <0.10 kU/L; T001 IgE Maple/Box Elder <0.10 kU/L; T003 IgE Common Silver Birch <0.10 kU/L; T006 - IgE Cedar, Mountain <0.10 kU/L; T007 - IgE Oak, White <0.10 kU/L; T008 IgE Elm, American <0.10 kU/L; T010 - IgE Walnut <0.10 kU/L; T011 - IgE Maple Leaf Sycamore <0.10 kU/L; T014 - IgE Cottonwood <0.10 kU/L; T015 - IgE Ash, White <0.10 kU/L; T070 - IgE White Mulberry <0.10 kU/L; W001 - IgE Ragweed, Short <0.10 kU/L; W006 - IgE Mugwort <0.10 kU/L; W014 IgE Pigweed, Common <0.10 kU/L; W018 IgE Sheep Sorrel <0.10 kU/L
== END 2024-01-31 09:19 | disposition home or self-care (01) ==
LOC: HO.LAB 09:18
PROVIDERS: PCP Internal Medicine; Referring Provider Internal Medicine; Visit Provider Hospitalist
DX: R91.1 Solitary pulmonary nodule (principal); J98.4 Other disorders of lung; D64.9 Anemia, unspecified; E04.1 Nontoxic single thyroid nodule; T78.40XA Allergy, unspecified, initial encounter; E53.8 Deficiency of other specified B group vitamins; E55.9 Vitamin D deficiency, unspecified
CPT/HCPCS: 36415; 82306; 82607; 82746; 82784; 82785; 83540; 84439; 84443; 85025; 85652; 86003; 86038; 86039; 86200; 86225; 86235; 86376; 86800

== ENCOUNTER 2024-02-14 14:21 | Outpatient (REF) | payer OTHER, SELFPAY ==
--- NOTE | ~2024-02-14 | MM_ITS ---
EXAMINATION: MM DIAGNOSTIC DIGITAL BREAST TOMOSYNTHESIS, BILATERAL US BREAST LIMITED, BILATERAL MAMMOGRAPHY: CLINICAL INFORMATION: CT chest performed outside institution ([facility]) demonstrated enlarged axillary lymph nodes per report. (Personal review of CT examination chest 01/17/2024 shows borderline enlarged lymph nodes predominantly in the subpectoral regions bilaterally, with high axillary right lymph node measuring up to 8 mm short axis. No nodes are present exceeding 1.0 cm in short axis. These appear more reactive in nature with numerous having normal fatty rosario, and no low abnormal axillary lymph nodes, i.e. sentinel nodes, are present on either side. Of note, the patient has a large TI-RADS Category 5 thyroid nodule. COMPARISON: Mammography: 07/31/2022, 08/05/2021, 07/26/2021, 06/22/2020, 06/17/2019, and dating back to 2014. [facility] chest CT pulmonary angiogram 01/17/2024. Thyroid ultrasound 01/28/2024. TECHNIQUE: Digital breast tomosynthesis is performed in both the craniocaudal and mediolateral oblique views along with computer-aided detection (CAD). Synthesized 2D images are generated from the tomosynthesis. In addition, full-field bilateral 3-D ML views were obtained. FINDINGS: The breasts are heterogeneously dense, which may obscure small masses (ACR BI-RADS breast composition Category c). Stable benign type calcifications upper outer right breast. There are no suspicious masses, suspicious grouped calcifications, or areas of architectural distortion in either breast. The parenchymal pattern is stable from prior exams. There are no abnormal axillary lymph nodes on either mammogram. Skin contours are normal. No findings to suggest malignancy either breast, and no definite abnormal low axillary lymph nodes. ULTRASOUND: CLINICAL INFORMATION: Subpectoral and high axillary lymphadenopathy seen on CT examination. COMPARISON: As above. CT chest pulmonary angiogram from [facility] 01/17/2024. TECHNIQUE: Targeted sonographic evaluation both axillary regions was performed using a high frequency linear transducer. Selected archived documentation. FINDINGS: RIGHT AXILLA: There are several lymph nodes present in the high right axilla, with one particular high axillary lymph node having a cortex measuring up to 4 mm, which is mildly thickened (normal is less than 3 mm). This can be reactive or pathologic but remains nonspecific. There is preservation of the normal fatty hilum. This node measures 8 mm in short axis. There are no lymph nodes enlarged by size criteria. LEFT AXILLA: There are several lymph nodes present in the high left axilla, none with cortex thickened over 3 mm, and none with abnormal belle morphology or loss of fatty hilum. None measure over 1 cm in short axis. These suggest reactive lymph nodes but again are nonspecific. No low axillary lymph nodes are identified on either side. MM/MM tomosynthesis diagnostic BI IMPRESSION: -There are no findings suspicious for malignancy in either breast. There are stable benign findings. -There is no mammographic or sonographic abnormal LOW axillary lymphadenopathy identified. There are borderline enlarged right greater than left HIGH axillary and subpectoral nodes, with one node in the HIGH RIGHT axilla demonstrating mildly thickened cortex up to 4 mm. These remain nonspecific, and could be reactive or neoplastic. -Findings on chest CT from [facility] show predominantly subpectoral and HIGH axillary lymphadenopathy, none meeting criteria for pathologic enlargement (1.0 cm short axis), however remain uncertain in etiology. There are no internal mamillary nodes, and no mediastinal nodes present. Today's examinations suggest lymphadenopathy does not appear to be related to either breast. No LOW axillary lymphadenopathy is identified. -Recommend clinical follow-up and imaging follow-up with CT and/or ultrasound, as well as thyroid FNA of the suspicious midline thyroid nodule. If no thyroid etiology for subpectoral lymph or HIGH axillary nodes can be identified, at that time, and lymphadenopathy persists in approximately 3 months, consider percutaneous biopsy of the most suspicious appearing lymph node on the right side. MRI of the breasts could also be considered at that time. -If lymphadenopathy resolves, or etiology is established, recommend resuming routine annual screening mammography. OVERALL ASSESSMENT: Mammography: BI-RADS 2 - Benign Findings Ultrasound: BI-RADS 2 - Benign Findings RECOMMENDATION: 1. Patient should be managed based on the clinical impression. Decision to proceed with biopsy should be based on clinical grounds and degree of clinical concern. This patient's information was entered into a reminder system with a target due date for their next mammogram.
== END 2024-02-14 14:22 | disposition home or self-care (01) ==
LOC: HO.MAMMO 14:21
PROVIDERS: PCP Internal Medicine; Visit Provider Internal Medicine
DX: R59.0 Localized enlarged lymph nodes (principal); R92.333 Mammographic heterogeneous density, bilateral breasts
CPT/HCPCS: 76642; 77062; 77066

== ENCOUNTER → 2024-02-14 15:00 | Outpatient (BNV) | payer OTHER, SELFPAY | PROVIDERS: PCP Internal Medicine; Visit Provider Radiology Diagnostic Radiology | DX: R92.1 Mammographic calcification found on diagnostic imaging of breast (principal); N63.31 Unspecified lump in axillary tail of the right breast; N63.32 Unspecified lump in axillary tail of the left breast | CPT/HCPCS: 76642; 77062; 77066 ==

== ENCOUNTER 2024-02-21 14:20 | Outpatient (AMB) | payer OTHER, SELFPAY ==
--- NOTE | 2024-02-21 14:23 | MHC.OFFVIS ---
Vital Signs 02/21/24 14:30 Height 5 ft 3 in Weight 150 lb 8 oz BMI 26.7 BP 122/76 Blood Pressure Location Lt brachial Position Sitting Pulse 73 Intake Visit Reasons: enlarged lymph nodes, b/l armpit and throat ? bx Intake Note: Patient is seen in office for evaluation and treatment of enlarged lymph nodes, bilateral armpit and throat possible biopsy. Pt c/o: had CT scan due to breathing problems and thats when the issue with the lymph nodes was found, pt denies any symptoms Sales And Service Representative Required: No Accompanied by: Self / Same As Patient Allergies No Known Allergies Allergy (Verified 02/21/24 14:31) Medication List - Last Reconciled 02/21/24 by Sg Perez MD albuterol sulfate 90 mcg/actuation 2 inhalations inhalation Q6H PRN 30 days cyanocobalamin (vitamin B-12) 1,000 mcg PO DAILY ferrous sulfate 325 mg PO BID hydroxychloroquine (Plaquenil) 200 mg PO BID simethicone 80 mg PO QID HPI Comments Details: 49-year-old female patient with past medical history of lupus, anemia of chronic disease, B12 deficiency, recently status post hysterectomy. The patient developed shortness of breath following this procedure raising concern for a pulmonary embolus. A CT angio was performed which was negative for blood clot however a thyroid nodule and bilateral axillary lymphadenopathy was noted. Subsequent ultrasound and mammogram of bilateral breasts revealed no suspicious findings on mammogram. Ultrasound did reveal borderline enlarged right greater than left high axillary and subpectoral nodes with no low axillary nodes. One right high axillary node demonstrated mildly thickened cortex up to 4 mm this was felt to be non suspicious and could either be reactive or neoplastic. [facility] Medical History Dyspnea Allergies Pneumonitis Abnormal uterine bleeding Uterine fibroid Vaginal discharge COVID-19 virus infection Cough Vaginal itching Bacteremia due to Gram-negative bacteria Acute bacterial pyelonephritis [place] Systemic lupus erythematosus Surgical History History of colonoscopy History of tubal ligation Family History Mother Rheumatoid arthritis Stroke Hypertension Sister Rheumatoid arthritis Cervical cancer Paternal Grandfather Colon cancer Maternal Grandfather Colon cancer Prostate cancer Maternal Aunt Colon cancer Social History Housing: House Alcohol intake: current Alcohol intake frequency: a few times a month Alcohol type: beer, wine and hard liquor Patient Tobacco Use Status: Never used Tobacco e-Cigarette/Vaping Use: Never Used Second Hand Smoke Exposure: No service: No Current occupational status: employed Current occupational exposures/hazards: No Sexual orientation: Straight/Heterosexual Gender identity: Female Cognitive needs: No Hearing needs: No Vision needs: Yes Female Reproductive History Menstrual Age of Menarche: 13 Review of Systems Const All systems reviewed & are unremarkable except as noted in HPI and below Physical Exam Vital Signs: Last Vital Signs Pulse 73 02/21/24 14:30 BP 122/76 02/21/24 14:30 BMI result Body Mass Index 26.7 Const General: cooperative and no acute distress Nutritional Appearance: well nourished Orientation/consciousness: patient oriented x3 Limitations: no limitations HEENT Head: Yes normocephalic and Yes atraumatic Ears: hearing grossly normal bilaterally Neck Neck: Yes no lymphadenopathy Chest Other: No palpable axillary lymphadenopathy on either side. No supraclavicular lymphadenopathy. Resp Effort & Inspection: normal respiratory effort, no audible wheezes, no cough and no respiratory distress Cardio Jugular venous distension: no JVD GI Inspection: Yes normal to inspection Skin Other: Warm, dry, no rash Neuro General: patient oriented x3 Extrem General: Yes no clubbing, cyanosis or edema Assessment & Plan Assessment & Plan (1) Axillary lymphadenopathy: Comment: appears reactive Code(s): R59.0 - Localized enlarged lymph nodes Category: Medical Plan 49-year-old female patient found incidentally to have enlarged lymph nodes in the axilla on a chest CT used for evaluation of shortness of breath. Subsequent evaluation with ultrasound revealed borderline suspicious lymph nodes high in the axilla bilaterally. Patient denies any associated symptoms including fever, chills, anorexia or weight loss. She does have a history of lupus which can be associated with enlarged lymph nodes. Examination today revealed no palpable axillary, supraclavicular or cervical lymph nodes. I recommended repeating the ultrasound as recommended in 3 months. If continued lymphadenopathy is still noted, ultrasound-guided core biopsy will be scheduled. The patient understands and agrees with the plan. Orders: Orders US breast LT limited 05/16/24 R59.0 - Localized enlarged lymph nodes US breast RT limited 05/16/24 R59.0 - Localized enlarged lymph nodes Coding Level of Care Code New Pt Level 4 (51815) Diagnoses Axillary lymphadenopathy R59.0
[2024-02-21 14:30] VITALS: BP 122/76; PULSE 73; BMI 26.7
== END 2024-02-21 14:43 | disposition home or self-care (01) ==
PROVIDERS: PCP Internal Medicine; Visit Provider Surgery
DX: R59.0 Localized enlarged lymph nodes (principal)
CPT/HCPCS: 99203

== ENCOUNTER → 2024-02-21 14:20 | Outpatient (BNVA) | payer OTHER, SELFPAY | PROVIDERS: PCP Internal Medicine; Visit Provider Surgery ==

== ENCOUNTER 2024-03-10 12:46 | Outpatient (REF) | payer OTHER, SELFPAY ==
--- NOTE | ~2024-03-10 | US_ITS ---
Ultrasound-guided thyroid nodule fine needle aspiration Indication: Left lower lobe thyroid nodule 3.6 cm Procedure: Informed consent was obtained from the patient prior to the procedure. During this process, the procedure and potential alternatives were explained, along with the intended outcome and benefits. The risks of the procedure, as well as the risks of not doing the procedure, were discussed. The patient was given the opportunity to ask questions regarding the procedure and appeared competent to make medical decisions. A signed consent form which documents this discussion was placed in the medical record. A timeout was performed in the room. The patient was placed in a supine position with the neck extended. The left side of the neck and chest was prepped and draped in routine sterile fashion. 1% lidocaine was used as anesthetic. Under real-time ultrasound guidance, a 25-gauge needle was placed into the nodule and aspiration was performed. A total of 3 aspirations were performed. The specimens were placed in CytoLyt and and the Affirma bottle. Postprocedure images showed no hematoma. A Band-Aid was applied to the access site. The patient tolerated the procedure well with no immediate complications. Permanent ultrasound images were archived to the procedure. US/US guided fine needle asp Impression: Left lower pole thyroid nodule fine-needle aspiration This procedure was performed by Ricky Trevino PA-C, and directly supervised by Dr. Pinzon
[2024-03-10] MEDS: Lidocaine HCl 1 % MPF 5 ML VIAL SUBCUT (14:05)
== END 2024-03-10 12:47 | disposition home or self-care (01) ==
LOC: HO.US 12:46
PROVIDERS: PCP Internal Medicine; Visit Provider Internal Medicine
DX: E04.1 Nontoxic single thyroid nodule (principal)
CPT/HCPCS: 10005; 88173; 88305

== ENCOUNTER → 2024-03-10 12:48 | Outpatient (BNV) | payer OTHER, SELFPAY | PROVIDERS: PCP Internal Medicine; Visit Provider Physician Assistant Surgical | DX: E04.1 Nontoxic single thyroid nodule (principal) | CPT/HCPCS: 10005 ==

== ENCOUNTER 2024-03-14 16:38 | Outpatient (REF) | payer OTHER, SELFPAY ==
[2024-03-14 17:00] LABS: MANUAL DIFF FLAG NO
[2024-03-14 17:35] LABS: Basophils Percent Auto 0.3 % (0-2); Eosinophils Absolute Auto 0.1 X10*3/uL (0.0-0.4); Eosinophils Percent Auto 2.1 % (0-4); Hematocrit 35.6 % (37.0-47.0); Hemoglobin 12.1 g/dl (12.0-16.0); Imm Gran Abs Auto 0.01 X10*3/uL (0.00-0.03); Imm Gran Pct Auto 0.3 % (0.0-0.4); Lymphocytes Absolute Auto 0.9 X10*3/uL (1.2-4.9); Lymphocytes Percent Auto 32.8 % (20-40); Mean Corpuscular Hemoglobin 28.9 pg (27.0-33.0); Monocytes Absolute Auto 0.4 X10*3/uL (0.1-1.2); Monocytes Percent Auto 13.2 % (2-11); Neutrophils Absolute Auto 1.5 x10*3/uL (2.0-8.3); Neutrophils Percent Auto 51.3 % (45-73); Platelet Count 204 X10*3/uL (160-400); Red Blood Count 4.19 X10*6/uL (4.20-5.50); Red Cell Distribution Width 14.8 % (11.0-16.0); White Blood Count 2.9 X10*3/uL (4.8-10.8)
[2024-03-14 18:23] LABS: Erythrocyte Sedimentation Rate 16 MM/HR (0-20)
[2024-03-14 21:34] LABS: Creatinine Urine 88.74 mg/dL; Total Protein Urine Random < 7 mg/dL (<12)
[2024-03-15 00:50] LABS: Alanine Aminotransferase 14 U/L (0-31); Albumin Level 3.9 g/dL (3.5-5.0); Alkaline Phosphatase 63 U/L (39-117); Anion Gap 11 (12-20); Aspartate Amino Transferase 22 U/L (5-31); Bilirubin Total 0.3 mg/dL (0.0-1.0); Blood Urea Nitrogen 15 mg/dL (9-16); Calcium 9.1 mg/dL (8.4-10.2); Carbon Dioxide 23 mmol/L (22-29); Chloride 107 mmol/L (96-108); Estimated Glomerular Filt Rate > 60; Glucose Random 77 mg/dL (60-115); Potassium 4.4 mmol/L (3.3-5.1); Sodium 137 mmol/L (135-145); Total Protein 6.9 g/dL (6.5-8.0)
[2024-03-17 06:59] LABS: Complement C3 109 mg/dL (83-193)
[2024-03-17 21:44] LABS: Anti DNA DS Antibody 1 IU/mL
== END 2024-03-14 16:39 | disposition home or self-care (01) ==
LOC: HO.LABR 16:38
PROVIDERS: PCP Internal Medicine; Visit Provider Internal Medicine Rheumatology
DX: M32.19 Other organ or system involvement in systemic lupus erythematosus (principal); D70.8 Other neutropenia; Z79.899 Other long term (current) drug therapy
CPT/HCPCS: 36415; 80053; 82570; 84156; 85025; 85652; 86140; 86160; 86225

== ENCOUNTER 2024-05-19 14:51 | Outpatient (REF) | payer OTHER, SELFPAY ==
--- NOTE | ~2024-05-19 | US_ITS ---
EXAMINATION: US DIAGNOSTIC ULTRASOUND BREAST, BILATERAL CLINICAL INFORMATION: Short interval follow-up for borderline enlarged bilateral axillary lymph nodes first evaluated 02/14/2024. Additional history obtained, the patient has a diagnosis of long-standing Lupus, a likely explanation for the bilateral symmetric prominent axillary lymph nodes. Of note, recent thyroid nodule FNA was benign. COMPARISON: -Ultrasound bilateral axilla 02/14/2024. -Mammography: 07/31/2022, 08/05/2021, 07/26/2021, 06/22/2020, 06/17/2019, and dating back to 2014. -[facility] chest CT pulmonary angiogram 01/17/2024. -Thyroid ultrasound 01/28/2024. Thyroid FNA 03/10/2024. TECHNIQUE: Ultrasound of the bilateral axillary regions was performed with real-time vick scale imaging and color Doppler. FINDINGS: There are bilateral mildly prominent lymph nodes in both axillae. On the right, multiple lymph nodes are present, measuring up to 1.6 x 1.0 x 0.7 cm, several with borderline thickened cortex, and one lymph node with 5 mm thick cortex present (labeled #1, this will be targeted for biopsy). On the left, multiple similar lymph nodes are present, largest measuring 2.2 x 0.9 x 1.1 cm with mild cortical thickening. All lymph nodes maintain normal fatty rosario and reniform shape. Given patient's history of lupus, these are most likely reactive. Review of most recent mammogram 02/14/2024 shows no findings suspicious for malignancy. US/US breast BI limited mamm only IMPRESSION: Mild persistent bilateral axillary lymphadenopathy of uncertain etiology. Given patient's known history of Lupus, this is most likely underlying cause. Recommend ultrasound-guided sampling one lymph node on the RIGHT (labeled #1) with thickened cortex to definitively characterize. Findings and recommendations were discussed with the patient in detail, who agrees with the overall plan. ASSESSMENT: BI-RADS 4: Suspicious (subcategory 4A: Low suspicion for malignancy) RECOMMENDATION: Ultrasound-guided biopsy. Electronically signed by: Eric Pinzon MD 05/19/2024 05:17 PM EDT
== END 2024-05-19 14:52 | disposition home or self-care (01) ==
LOC: HO.MAMMO 14:51
PROVIDERS: Visit Provider Surgery
DX: R59.0 Localized enlarged lymph nodes (principal)
CPT/HCPCS: 76642

== ENCOUNTER → 2024-05-19 15:00 | Outpatient (BNV) | payer OTHER, SELFPAY | PROVIDERS: Visit Provider Radiology Diagnostic Radiology | DX: R92.8 Other abnormal and inconclusive findings on diagnostic imaging of breast (principal) | CPT/HCPCS: 76642 ==

== ENCOUNTER 2024-05-19 16:47 | Outpatient (REF) | payer OTHER, SELFPAY ==
--- NOTE | ~2024-05-19 | CT_ITS ---
EXAMINATION: CT CHEST WITHOUT CONTRAST CLINICAL INFORMATION: Lung disorders COMPARISON: 01/17/2024 TECHNIQUE: Multidetector volumetric CT imaging of the chest was done. Axial MIP volume rendering provided. Sagittal and coronal reformatted images were obtained. This CT examination was performed using dose optimization techniques as appropriate, variously including the following: *Automated exposure control *Adjustment of mA and/or kV according to patient size (this includes techniques or standardized protocols for targeted exams where dose is matched to indication/reason for exam; i.e. extremities or head) *Use of iterative reconstruction technique DLP: 108 mGy-cm FINDINGS: LUNGS: No suspicious pulmonary nodule. PLEURA: No pleural effusion. MEDIASTINUM: No cardiomegaly. Aorta and pulmonary artery are normal in caliber. No mediastinal adenopathy. Lack of IV contrast limits evaluation for hilar adenopathy. CORONARY ARTERY CALCIFICATION: No coronary artery calcification appreciated. CHEST WALL/AXILLA: No axillary or internal mammary lymphadenopathy. Redemonstration of heterogeneous enlarged thyroid nodule. UPPER ABDOMEN: Unremarkable. OSSEOUS STRUCTURES: Degenerative changes of the spine. CT/CT chest wo IV con IMPRESSION: * No suspicious pulmonary nodule. * Redemonstration of heterogeneous enlarged thyroid nodule. Electronically signed by: Meghan Dasilva MD 07/09/2024 01:36 PM EST
== END 2024-05-19 16:48 | disposition home or self-care (01) ==
LOC: HO.CT 16:47
PROVIDERS: PCP Internal Medicine; Visit Provider Hospitalist
DX: R91.8 Other nonspecific abnormal finding of lung field (principal); J98.4 Other disorders of lung
CPT/HCPCS: 71250

== ENCOUNTER 2024-05-21 07:47 | Outpatient (REF) | payer OTHER, SELFPAY ==
--- NOTE | ~2024-05-21 | US_ITS ---
PROCEDURE: ULTRASOUND-GUIDED right axillary BIOPSY CLINICAL INFORMATION: 49-year-old female with prominent right axillary lymph nodes. COMPARISON: Comparison is made with relevant prior available examinations. TECHNIQUE: The details of the procedure, as well as the risks, benefits, and alternatives to the procedure were explained to the patient in detail and all of her questions were answered, after which, written informed consent was obtained. PROCEDURE: Prior to the procedure, sonography revealed a prominent right axillary lymph node with normal appearing cortex measuring 3 mm. A time-out was performed, the lesion intended for biopsy was targeted and the skin of the right axilla breast was then prepped and draped in the usual sterile fashion. Using sonographic guidance, sterile technique, and 1% lidocaine without epinephrine for local anesthesia, a total of 4 cores were obtained through the targeted area with a 18-gauge [place] biopsy device. At the completion of tissue sampling, a single hydromark butterfly-shaped metallic clip was deposited at the biopsy site. An appropriate sample was obtained. No postprocedure mammogram was performed The patient tolerated the procedure well and, after assuring adequate hemostasis, was discharged in good condition after reviewing postbiopsy breast care instructions. Final pathology results are pending. US/US biopsy lymph node IMPRESSION: 1. Uncomplicated sonographically-guided core biopsy of the right axilla lymph node. No postprocedure mammogram was performed. 2. Final pathology results are pending. A separate report with final recommendations will be issued once these results are made available. Electronically signed by: Roxanna Guerra DO 05/21/2024 01:35 PM EDT
== END 2024-05-21 07:48 | disposition home or self-care (01) ==
LOC: HO.MAMMO 07:47
PROVIDERS: PCP Internal Medicine; Visit Provider Surgery
DX: R59.0 Localized enlarged lymph nodes (principal)
CPT/HCPCS: 38505; 76942; 88305; A4648

== ENCOUNTER → 2024-05-21 07:49 | Outpatient (BNV) | payer OTHER, SELFPAY | PROVIDERS: PCP Internal Medicine; Visit Provider Internal Medicine | DX: R59.0 Localized enlarged lymph nodes (principal) | CPT/HCPCS: 38505; 76942 ==

== ENCOUNTER 2024-06-09 17:19 | Outpatient (AMB) | payer OTHER, SELFPAY ==
[2024-06-09 17:20] VITALS: BP 112/80; BMI 26.4
--- NOTE | 2024-06-09 17:20 | MHC.PC.OV ---
Vital Signs 06/09/24 17:20 Height 5 ft 3 in Weight 149 lb BMI 26.4 BP 112/80 Blood Pressure Location Lt brachial Position Sitting Intake Visit Reasons: PE Intake Note: Patient here for a physical exam Logging Assistant Required: No Accompanied by: Self / Same As Patient Allergies No Known Allergies Allergy (Verified 06/09/24 17:22) Tobacco use date assessed: 01/30/24 Dental Screening Dental Screen Date: 01/30/24 HPI HPI Comments History of Present Illness Details This is a 49-year-old female with lupus that comes for her physical exam. Mammogram done 2023 was normal. Lupus is follow by Rheumatology and has been stable. Colonoscopy done 2019 and next colonoscopy should be 2024. No need for Pap smear due to hysterectomy. She complains of bilateral hand pain and numbness and x-ray was done by Rheumatology which showed mild degeneration. I will order a nerve conduction study and refer her to ortho. [facility] Medical History (Updated 06/09/24 @ 17:40 by Deisy Adrian MD) Dyspnea Allergies Pneumonitis Abnormal uterine bleeding Uterine fibroid Vaginal discharge COVID-19 virus infection Cough Vaginal itching Bacteremia due to Gram-negative bacteria Acute bacterial pyelonephritis [place] Systemic lupus erythematosus Surgical History History of hysterectomy History of colonoscopy History of tubal ligation Family History Mother Rheumatoid arthritis Stroke Hypertension Sister Rheumatoid arthritis Cervical cancer Paternal Grandfather Colon cancer Maternal Grandfather Colon cancer Prostate cancer Maternal Aunt Colon cancer Father No problems noted. Social History Housing: House Alcohol intake: current Alcohol intake frequency: a few times a month Alcohol type: beer, wine and hard liquor Patient Tobacco Use Status: Never used Tobacco e-Cigarette/Vaping Use: Never Used Second Hand Smoke Exposure: No service: No Current occupational status: employed Current occupational exposures/hazards: No Sexual orientation: Straight/Heterosexual Gender identity: Female Cognitive needs: No Hearing needs: No Vision needs: Yes Female Reproductive History Menstrual Age of Menarche: 13 Questionnaire PHQ-9 Over the last 2 weeks, how often have you been bothered by any of the following problems? 1. Little interest or pleasure in doing things: not at all 2. Feeling down, depressed, or hopeless: not at all 3. Trouble falling or staying asleep, or sleeping too much: nearly every day 4. Feeling tired or having little energy: more than half the days 5. Poor appetite or overeating: not at all 6. Feeling bad about yourself - or that you are a failure or have let yourself or your family down: not at all 7. Trouble concentrating on things, such as reading the newspaper or watching television: not at all 8. Moving or speaking so slowly that other people could have noticed. Or the opposite - being so fidgety or restless that you have been moving around a lot more than usual: not at all 9. Thoughts that you would be better off or of hurting yourself in some way: not at all Total score: 5 Depression Screening Interpretation: Positive Depression Screening Follow-up: Existing condition and Follow-up Visit Requested Depression Screening Done: Yes 50651 - PHQ-9 Billing: Yes Source: Developed by Drs. Sincere Malik, Carmina Finch, Zeke Wheeler and colleagues, with an educational alexia from [employer]. Thrive Questionnaire Date Thrive assessed: 06/03/24 I am a: Patient What is your living situation today?: I have a steady place to live Within the past 12 months, did the food you bought not last and you didn't have the money to get more?: Never true Within the past 12 months, did you worry whether your food would run out before you got money to buy more?: Never true Do you have trouble paying for medicines?: No Do you have trouble getting transportation to medical appointments?: No Do you have trouble paying your heating and electricity bill?: No Do you have trouble taking care of your child, family member or friend?: No Do you have trouble with day-to-day activities such as bathing, preparing meals, shopping, managing finances, etc.?: No Are you currently unemployed and looking for a job?: No Are you interested in more education?: No Please select the resources that you would like help with: None Currently or been in a relationship where the following occur: No concerns reported THRIVE Score: 0 AUDIT C Alcohol Use Questionnaire (AUDIT-C) 1. How often do you have a drink containing alcohol?: 2-3 times a week 2. How many drinks containing alcohol do you have on a typical day when you are drinking?: 3 or 4 3. How often do you have six or more drinks on one occasion?: Never Total Score: 4 ARLINE-7 AMB Questionnaire ARLINE-7 Date ARLINE - 7 assessed: 06/09/24 Feeling nervous, anxious, or on edge: 0 = Not at all Not being able to stop or control worryin = Not at all Worrying too much about different things: 0 = Not at all Trouble relaxin = Not at all Being so restless that it is hard to sit still: 0 = Not at all Becoming easily annoyed or irritable: 0 = Not at all Feeling afraid as if something awful might happen: 0 = Not at all Total ARLINE-7 score (0-4 normal; 5-9 mild; 10-14 moderate; 15-21 severe): 0 Source: Developed by Drs. Sincere Malik, Carmina Finch, Zeke Wheeler and colleagues, with an educational alexia from [employer]. Review of Systems Const All systems reviewed & are unremarkable except as noted in HPI and below Card Denies chest pain at rest, Denies chest pain with activity, Denies edema, Denies irregular heart rhythm, Denies claudication, Denies dyspnea, Denies dyspnea on exertion, Denies orthopnea, Denies paroxysmal nocturnal dyspnea and Denies slow heart rate Resp Denies cough, Denies dyspnea and Denies dyspnea on exertion GI Denies abdominal pain, Denies change in bowel habits, Denies excessive flatus, Denies nausea and Denies vomiting Denies urinary incontinence, Denies urinary hesitancy and Denies urinary urgency Musc Denies abnormal gait, Denies atrophy, Denies deformity, Reports arthralgias, Denies limited range of motion and Reports numbness Skin/Breast Denies bleeding lesions, Denies changing lesions and Denies rash Neuro Denies abnormal gait, Denies lack of coordination and Reports numbness Physical exam (Primary Care) Vital Signs: Last Vital Signs BP 112/80 06/09/24 17:20 BMI result Body Mass Index 26.4 Tobacco/Smoking Status: Tobacco use Status Tobacco use date assessed 01/30/24 06/09/24 17:24 Patient Tobacco Use Status Never used Tobacco 06/09/24 17:24 e-Cigarette/Vaping Use Never Used 06/09/24 17:24 PHQ-9: PHQ-9 Score PHQ-9: Total score 5 06/09/24 17:33 Depression Screening Interpretation: Positive Depression Screening Follow-up: Existing condition and Follow-up Visit Requested Thrive Assessment: Date of Thrive Assessment Date Thrive assessed 06/03/24 06/09/24 17:24 Currently or been in a relationship where the following occur: No concerns reported [facility] Head: Yes normal to inspection, Yes normocephalic and Yes atraumatic Ears: external ears normal Eyes General: appearance normal, both eyes and all related structures Eyelids: Yes eyelids normal Conjunctivae: conjunctivae normal Neck Neck: Yes normal visual inspection and Yes supple Resp Effort & Inspection: normal respiratory effort Auscultation: clear to auscultation bilaterally Cardio Jugular venous distension: no JVD Rate: regular rate Rhythm: regular rhythm Heart sounds: S1 normal heart sound present and S2 normal heart sound present GI Inspection: Yes normal to inspection Palpation (GI): Soft to palpation and nontender Auscultation: normal bowel sounds Skin General skin exam: no rashes or lesions noted Neuro General: no focal motor deficits Extrem General: Yes full ROM Psych Appearance: grossly normal Office Procedures Flu Questionnaire Does the patient have a severe egg allergy?: No Does the patient have severe life threatening allergies?: No Does the patient have a fever or illness today?: No Has the patient ever had Guillain-Strasburg Syndrome?: No Has the patient ever had any past reaction to a flu shot?: No Immunizations Fluarix Triv [id number] (PF) 45 mcg (15 mcg x 3)/0.5 mL IM syringe Performing Provider: Deisy Adrian MD [facility] [place] Administered by: JUDAH Ferguson on 06/09/24 17:46 Dose Route Admin Location Dispensed Lot Number Expiration Date [facility] Advertising Sales Manager 0.5 mL IM Left Deltoid 0.5 mL [id number] 02/23/25 [id number] [employer] VIS Given Date VIS Provided VIS Publication Date 06/09/24 Single Vaccine 21 Eligibility Eligibility Date Funding Source Not [facility] Eligible 06/09/24 Private Coding Level of Care Code Est Pt Level 3 (16737) Est Pt Prev Care 40-64y(92006) Diagnoses Physical exam Z00.00 Hand paresthesia R20.2 Bilateral hand pain M79.641; M79.642 Other forms of systemic lupus erythematosus, unspecified organ involvement status M32.8 Systemic lupus erythematosus type: other Systemic lupus erythematosus organ involvement: unspecified Time Spent (min) 32 Assessment & Plan Assessment & Plan (1) Physical exam: Code(s): Z00.00 - Encounter for general adult medical examination without abnormal findings Category: Medical Plan: Repeat in a year. (2) Hand paresthesia: Code(s): R20.2 - Paresthesia of skin Category: Medical Plan: Nerve conduction study ordered. (3) Bilateral hand pain: Code(s): M79.641 - Pain in right hand; M79.642 - Pain in left hand Category: Medical Plan: Referred to Ortho. (4) Systemic lupus erythematosus: Code(s): M32.9 - Systemic lupus erythematosus, unspecified Category: Medical Qualifiers: Systemic lupus erythematosus type: other Systemic lupus erythematosus organ involvement: unspecified Qualified Code(s): M32.8 - Other forms of systemic lupus erythematosus Plan: Continue hydroxychloroquine. Follow-up with rheumatology. Orders: Orders Vitamin B12 and Folate Today E53.8 - Deficiency of other specified B group vitamins Influenza [id number] Immunization Today Z23 - Encounter for immunization Lipid Panel Today E78.5 - Hyperlipidemia, unspecified Comprehensive [place]. Panel Fast Today Z00.00 - Encounter for general adult medical examination without abnormal findings NE nerve conduction velocity Today R20.2 - Paresthesia of skin Referrals Orthopedics Referral M79.641 - Pain in right hand, M79.642 - Pain in left hand Medications: New Fluarix Triv [id number] (PF) (flu vacc [id number] 6mos up(PF)) 0.5 mL IM ONCE 0.5 mL 0RF NS Z23 - Encounter for immunization
== END 2024-06-09 17:43 | disposition home or self-care (01) ==
PROVIDERS: PCP Internal Medicine; Visit Provider Internal Medicine
DX: Z00.00 Encounter for general adult medical examination without abnormal findings (principal); R20.2 Paresthesia of skin; M79.641 Pain in right hand; M79.642 Pain in left hand; M32.8 Other forms of systemic lupus erythematosus

== ENCOUNTER → 2024-06-09 17:19 | Outpatient (BNVA) | payer OTHER, SELFPAY | PROVIDERS: PCP Internal Medicine; Visit Provider Internal Medicine | DX: Z00.01 Encounter for general adult medical examination with abnormal findings (principal); R20.2 Paresthesia of skin; M79.641 Pain in right hand; M79.642 Pain in left hand; M32.8 Other forms of systemic lupus erythematosus; Z79.899 Other long term (current) drug therapy; Z23 Encounter for immunization | CPT/HCPCS: 90471; 90656; 96127 ==

== ENCOUNTER 2024-06-16 11:38 | Outpatient (REF) | payer OTHER, SELFPAY ==
[2024-06-16 12:11] LABS: MANUAL DIFF FLAG NO
[2024-06-16 12:28] LABS: Basophils Percent Auto 0.4 % (0-2); Eosinophils Absolute Auto 0.1 X10*3/uL (0.0-0.4); Eosinophils Percent Auto 1.9 % (0-4); Hematocrit 38.4 % (37.0-47.0); Hemoglobin 12.6 g/dl (12.0-16.0); Imm Gran Abs Auto 0.01 X10*3/uL (0.00-0.03); Imm Gran Pct Auto 0.4 % (0.0-0.4); Lymphocytes Absolute Auto 0.8 X10*3/uL (1.2-4.9); Lymphocytes Percent Auto 28.6 % (20-40); Mean Corpuscular HGB Conc 32.8 g/dl (31.0-35.0); Mean Corpuscular Hemoglobin 29.6 pg (27.0-33.0); Mean Corpuscular Volume 90.4 fL (80.0-98.0); Mean Platelet Volume 9.7 fL (9.4-12.3); Monocytes Absolute Auto 0.3 X10*3/uL (0.1-1.2); Monocytes Percent Auto 9.7 % (2-11); Neutrophils Absolute Auto 1.6 x10*3/uL (2.0-8.3); Platelet Count 157 X10*3/uL (160-400); Red Blood Count 4.25 X10*6/uL (4.20-5.50); Red Cell Distribution Width 12.3 % (11.0-16.0); White Blood Count 2.7 X10*3/uL (4.8-10.8)
[2024-06-16 12:57] LABS: Total Protein Urine Random < 7 mg/dL (<12)
[2024-06-16 13:01] LABS: Alanine Aminotransferase 18 U/L (0-31); Albumin Level 3.9 g/dL (3.5-5.0); Alkaline Phosphatase 62 U/L (39-117); Anion Gap 9 (12-20); Aspartate Amino Transferase 23 U/L (5-31); Bilirubin Total 0.5 mg/dL (0.0-1.0); Blood Urea Nitrogen 15 mg/dL (9-16); C Reactive Protein 0.28 mg/dL (< or = 0.50); Calcium 9.6 mg/dL (8.4-10.2); Carbon Dioxide 27 mmol/L (22-29); Chloride 110 mmol/L (96-108); Estimated Glomerular Filt Rate > 60; Glucose Random 88 mg/dL (60-115); Potassium 4.2 mmol/L (3.3-5.1); Sodium 142 mmol/L (135-145); Total Protein 6.9 g/dL (6.5-8.0)
[2024-06-16 13:10] LABS: Erythrocyte Sedimentation Rate 18 MM/HR (0-20)
[2024-06-17 10:38] LABS: Complement C3 109 mg/dL (83-193)
[2024-06-17 14:19] LABS: Anti DNA DS Antibody 2 IU/mL
== END 2024-06-16 11:39 | disposition home or self-care (01) ==
LOC: HO.LABR 11:38
PROVIDERS: PCP Internal Medicine; Visit Provider Internal Medicine Rheumatology
DX: M32.9 Systemic lupus erythematosus, unspecified (principal); D70.9 Neutropenia, unspecified; Z79.899 Other long term (current) drug therapy
CPT/HCPCS: 36415; 80053; 82570; 84156; 85025; 85652; 86140; 86160; 86225

== ENCOUNTER 2024-07-03 14:20 | Outpatient (REF) | payer OTHER, SELFPAY ==
--- NOTE | 2024-07-03 14:27 | EMG_ITS ---
Chief complaint: Hand numbness Reason for referral: Evaluate for Carpal Tunnel Syndrome Referred by: Dr. Jon Procedure done: Bilateral upper extremities NCS/EMG Precautions and/or limitations: None The limb temperature was monitored continuously and remained between 32-36 degrees C during the performance of the NCS. Nerve Conduction Studies Anti Sensory Summary Table ?Stim Site NR Onset (ms) Norm Onset (ms) Peak (ms) Norm Peak (ms) O-P Amp (?V) Norm O-P Amp Site1 Site2 Delta-0 (ms) Dist (cm) Kimani (m/s) Norm Kimani (m/s) Left Median Anti Sensory (2nd Digit) Wrist ? 4.6 5.4 <3.6 11.4 >10 Wrist 2nd Digit 4.6 14.0 30 Right Median Anti Sensory (2nd Digit) Wrist ? 4.1 5.4 <3.6 7.5 >10 Wrist 2nd Digit 4.1 14.0 34 Right Radial Anti Sensory (Thumb) Forearm ? 1.0 2.2 <3.1 9.5 Forearm Thumb 1.0 0.0 Left Ulnar Anti Sensory (5th Digit) Wrist ? 2.5 3.2 <3.7 23.5 >15.0 Wrist 5th Digit 2.5 14.0 56 Right Ulnar Anti Sensory (5th Digit) Wrist ? 2.3 2.9 <3.7 16.5 >15.0 Wrist 5th Digit 2.3 14.0 61 Motor Summary Table ?Stim Site NR Onset (ms) Norm Onset (ms) O-P Amp (mV) Norm O-P Amp iAmp (mV) Amp (1st) (%) Site1 Site2 Delta-0 (ms) Dist (cm) Kimani (m/s) Norm Kimani (m/s) Left Median Motor (Abd Poll Brev) Wrist ? 5.4 <3.9 9.2 >4.5 10.8 100.0 Elbow Wrist 4.0 19.5 49 >45 Elbow ? 9.4 8.8 10.3 95.7 Right Median Motor (Abd Poll Brev) Wrist ? 6.3 <3.9 4.6 >4.5 5.3 100.0 Elbow Wrist 3.6 18.0 50 >45 Elbow ? 9.9 4.5 5.2 97.8 Left Ulnar Motor (Abd Dig Minimi) Wrist ? 2.6 <3.0 6.6 >5 8.2 100.0 B Elbow Wrist 2.8 15.0 54 >45 B Elbow ? 5.4 6.5 8.2 98.5 A Elbow B Elbow 1.6 10.0 63 >45 A Elbow ? 7.0 6.4 8.1 97.0 Right Ulnar Motor (Abd Dig Minimi) Wrist ? 2.5 <3.0 7.2 >5 8.1 100.0 B Elbow Wrist 3.4 19.5 57 >45 B Elbow ? 5.9 6.1 6.9 84.7 A Elbow B Elbow 1.1 10.0 91 >45 A Elbow ? 7.0 6.7 7.7 93.1 EMG ?Side Muscle Nerve Root Ins Act Fibs Psw Amp Dur Poly Recrt Int Pat Comment Right 1stDorInt Ulnar C8-T1 Nml Nml Nml Nml Nml 0 Nml Complete Right FlexCarRad Median C6-7 Nml Nml Nml Nml Nml 0 Nml Complete Right Biceps Musculocut C5-6 Nml Nml Nml Nml Nml 0 Nml Complete Right Triceps Radial C6-7-8 Nml Nml Nml Nml Nml 0 Nml Complete Right Deltoid Axillary C5-6 Nml Nml Nml Nml Nml 0 Nml Complete Left 1stDorInt Ulnar C8-T1 Nml Nml Nml Nml Nml 0 Nml Complete Left FlexCarRad Median C6-7 Nml Nml Nml Nml Nml 0 Nml Complete Left Biceps Musculocut C5-6 Nml Nml Nml Nml Nml 0 Nml Complete Left Triceps Radial C6-7-8 Nml Nml Nml Nml Nml 0 Nml Complete Left Deltoid Axillary C5-6 Nml Nml Nml Nml Nml 0 Nml Complete FINDINGS: Bilateral median motor nerves showed prolonged distal latency, normal amplitude and normal conduction velocity. Right median sensory nerve showed prolonged peak latency and small amplitude. Left median sensory nerve showed prolonged peak latency. All other nerves tested were within normal. Concentric needle EMG was performed in selected muscles of the upper extremity. Study did not reveal signs of electric abnormalities as shown in the table above. IMPRESSION: 1. This is an abnormal study. 2. There is electrodiagnostic evidence for bilateral moderate-severe median neuropathy at the wrist, consistent with carpal tunnel syndrome. 3. There is no electrodiagnostic evidence for ulnar neuropathy, brachial plexopathy, or cervical radiculopathy. Thank you for your kind referral. Quin Allen MD, KEVON Board Certified, [place] [employer] and [employer] (ABPMR) Board Certified, [place] Board of Electrodiagnostic [employer] (ABEM) CODIN [phone] MTDD
== END 2024-07-03 14:21 | disposition home or self-care (01) ==
LOC: HO.NEURO 14:20
PROVIDERS: PCP Internal Medicine; Visit Provider Internal Medicine
DX: R20.2 Paresthesia of skin (principal)
CPT/HCPCS: 95886; 95911

== ENCOUNTER → 2024-07-03 14:27 | Outpatient (BNV) | payer OTHER, SELFPAY | PROVIDERS: PCP Internal Medicine; Visit Provider Physical Medicine & Rehabilitation | DX: G56.03 Carpal tunnel syndrome, bilateral upper limbs (principal) | CPT/HCPCS: 95886; 95911 ==

== ENCOUNTER 2024-07-04 15:38 | Outpatient (AMB) | payer OTHER, SELFPAY ==
--- NOTE | 2024-07-04 15:43 | A.OFFVIS_ITS ---
Vital Signs 07/04/24 15:45 Height 5 ft 3 in Weight 146 lb 9.718 oz BMI 26.0 BP 112/62 Blood Pressure Location Rt brachial Position Sitting Pulse 66 Pulse Source Pulse Oximeter Pulse Oximetry (%) 99 Oxygen Delivery Method Room Air Intake Visit Reasons: Pneumonitis/ follow up CT Bookmaker'S Clerk Required: No Iron Handler: Iron Handler offered & declined Allergies No Known Allergies Allergy (Verified 07/04/24 15:48) Medication List - Last Reconciled 07/04/24 by Tiffani Reyna LPN albuterol sulfate 90 mcg/actuation 2 inhalations inhalation Q6H PRN 30 days cyanocobalamin (vitamin B-12) 1,000 mcg PO DAILY ferrous sulfate 325 mg PO BID hydroxychloroquine (Plaquenil) 200 mg PO BID simethicone 80 mg PO QID HPI Comments Details: The patient is a 49-year-old woman with a known history of lupus who apparently underwent a hysterectomy at [facility]. The surgery went well without any apparent complications. Although after the surgery the patient started developing worsening shortness of breath. Moderate severity. She went back to [facility]. Because of her sister lupus she did undergo a CTA to rule out pulmonary emboli. The patient did not have any emboli. Her office is a little dilated with some fuzziness suggesting some fluid. In addition to that she has not ground-glass opacities primarily in the left base more than the right. Appeared to be some degree mosaic pattern likely some degree of pneumonitis. The patient also had a thyroid nodule and also lymphadenopathy primarily in the axilla. She was able to go home. She discharged home with follow-up. She was given simethicone that seems to be helping some degree. She still has episodic shortness of breath. She does have some minimal wheezing on examination primarily in the right front area. Therefore will try inhaler. In the meantime we did look at all the images together. It appears to be potentially microaspiration post anesthesia resulting in some degree of pneumonitis and air trapping. This probably resulting in some reactive airways. I do not believe that this is ongoing connective tissue disease related interstitial lung disease. Will go ahead and request blood work doubt at this time. 07/04/2024 the patient is here for pulmonary follow-up visit. Overall she is doing well. Her respiratory symptoms have improved dramatically. She did not have to use inhaler after she was prescribed a inhaler. Although more recently she was exposed to sick contact and she started using [id number] cough medication. Did advise her she can always use the rescue inhaler as needed to help with the cough. She did have a repeat CT scan of the chest which I personally reviewed. It appears that the ground-glass opacities pneumonitis has completely clear. We are still waiting for the final read on the CT scan though. Most likely she does not any need additional testing. The patient has been having issues with dry eyes. She does have positive antibodies for Sjogren's and she does have a history of lupus is likely all interconnected. She does follow-up Rheumatology. She currently is on Plaquenil. She is tolerating that well. Therefore this point the patient will follow-up in a year's time. She can use her rescue inhaler as needed. No additional imaging at this time although will waiting for the final read on the CT scan. If any issues arise prior to the next visit she will call for an earlier assessment. [facility] Medical History Dyspnea Allergies Pneumonitis Abnormal uterine bleeding Uterine fibroid Vaginal discharge COVID-19 virus infection Cough Vaginal itching Bacteremia due to Gram-negative bacteria Acute bacterial pyelonephritis [place] Systemic lupus erythematosus Surgical History History of hysterectomy History of colonoscopy History of tubal ligation Family History (Updated 06/09/24 @ 17:32 by Deisy Adrian MD) Mother Rheumatoid arthritis Stroke Hypertension Sister Rheumatoid arthritis Cervical cancer Paternal Grandfather Colon cancer Maternal Grandfather Colon cancer Prostate cancer Maternal Aunt Colon cancer Father No problems noted. Social History (Updated 07/04/24 @ 15:49 by Tiffani Reyna LPN) Housing: House Alcohol intake: current Alcohol intake frequency: a few times a month Alcohol type: beer, wine and hard liquor Patient Tobacco Use Status: Never used Tobacco e-Cigarette/Vaping Use: Never Used Second Hand Smoke Exposure: No service: No Current occupational status: employed Current occupational exposures/hazards: No Sexual orientation: Straight/Heterosexual Gender identity: Female Cognitive needs: No Hearing needs: No Vision needs: Yes Female Reproductive History Menstrual Age of Menarche: 13 Review of Systems Const Denies fever(s) Eyes Reports dry eyes ENT Denies nasal congestion Card Denies chest pain and Denies dyspnea Resp Reports cough and Denies dyspnea GI Reports GI cramping Reports no additional complaints Musc Reports no additional complaints Skin/Breast Denies rash Bony/Lymph Reports lymphadenopathy Physical Exam Vital Signs: Last Vital Signs Pulse 66 07/04/24 15:45 BP 112/62 07/04/24 15:45 Pulse Ox 99 07/04/24 15:45 Oxygen Delivery Method Room Air 07/04/24 15:45 BMI result Body Mass Index 26.0 Const General: comfortable HEENT Head: Yes normocephalic Neck Neck: Yes supple Chest Chest palpation & inspection: normal inspection of the chest Resp Effort & Inspection: normal respiratory effort Auscultation: clear to auscultation bilaterally and no wheezes Cardio Heart sounds: S1 normal heart sound present and S2 normal heart sound present GI Palpation (GI): Soft to palpation Skin General skin exam: no rashes or lesions noted Extrem General: Yes no clubbing, cyanosis or edema Assessment & Plan Assessment & Plan (1) Pneumonitis: Comment: resolved Code(s): J98.4 - Other disorders of lung Category: Medical (2) Allergies: Code(s): T78.40XA - Allergy, unspecified, initial encounter Category: Medical Qualifiers: Encounter type: initial encounter Qualified Code(s): T78.40XA - Allergy, unspecified, initial encounter (3) Dyspnea: Code(s): R06.00 - Dyspnea, unspecified Category: Medical Qualifiers: Dyspnea type: shortness of breath Qualified Code(s): R06.02 - Shortness of breath (4) Thyroid nodule: Code(s): E04.1 - Nontoxic single thyroid nodule Category: Medical (5) Axillary lymphadenopathy: Comment: reactive based on pathology Code(s): R59.0 - Localized enlarged lymph nodes Category: Medical Plan LAVINIA as needed continue plaquenil CT imaging improved, awaiting final read F/U in 12 months Coding Level of Care Code Est Pt Level 4 (75515) Diagnoses Pneumonitis J98.4 Allergy, initial encounter T78.40XA Encounter type: initial encounter Shortness of breath R06.02 Dyspnea type: shortness of breath Thyroid nodule E04.1 Axillary lymphadenopathy R59.0 Time Spent (min) 17
[2024-07-04 15:45] VITALS: BP 112/62; PULSE 66; O2SAT 99; BMI 26.0
== END 2024-07-04 16:03 | disposition home or self-care (01) ==
PROVIDERS: PCP Internal Medicine; Visit Provider Hospitalist
DX: J98.4 Other disorders of lung (principal); T78.40XA Allergy, unspecified, initial encounter; R06.02 Shortness of breath; E04.1 Nontoxic single thyroid nodule; R59.0 Localized enlarged lymph nodes
CPT/HCPCS: 99214

== ENCOUNTER → 2024-07-04 15:38 | Outpatient (BNVA) | payer OTHER, SELFPAY | PROVIDERS: PCP Internal Medicine; Visit Provider Hospitalist ==

== ENCOUNTER 2024-07-08 15:01 | Outpatient (AMB) | payer OTHER, SELFPAY ==
--- NOTE | 2024-07-08 15:16 | A.OFFVIS_ITS ---
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 Right symptoms worse than the left. No previous treatment. [place] done [place] [facility] [place] abnormal study IMPRESSION: 1. This is an abnormal study. 2. There is electrodiagnostic evidence for bilateral moderate-severe median neuropathy at the wrist, consistent with carpal tunnel syndrome. 3. There is no electrodiagnostic evidence for ulnar neuropathy, brachial plexopathy, or cervical radiculopathy. 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 Right symptoms worse than the left. No previous treatment. EMG done [place] [facility] [place] abnormal study IMPRESSION: 1. This is an abnormal study. 2. There is electrodiagnostic evidence for bilateral moderate-severe median neuropathy at the wrist, consistent with carpal tunnel syndrome. 3. There is no electrodiagnostic evidence for ulnar neuropathy, brachial plexopathy, or cervical radiculopathy. [facility] Medical History (Updated 07/29/24 @ 09:01 by ANDREW Albarran) Dyspnea Allergies Pneumonitis Abnormal uterine bleeding Uterine fibroid Vaginal discharge COVID-19 virus infection Cough Vaginal itching Bacteremia due to Gram-negative bacteria Acute bacterial pyelonephritis Bone island Systemic lupus erythematosus Surgical History (Updated 07/08/24 @ 15:18 by Emily Morgan CMA) History of hysterectomy (~12/2023) History of colonoscopy History of tubal ligation Family History (Updated 06/09/24 @ 17:32 by Deisy Adrian MD) Mother Rheumatoid arthritis Stroke Hypertension Sister Rheumatoid arthritis Cervical cancer Paternal Grandfather Colon cancer Maternal Grandfather Colon cancer Prostate cancer Maternal Aunt Colon cancer Father No problems noted. Social History (Updated 07/04/24 @ 15:49 by Tiffani Reyna LPN) Housing: House Alcohol intake: current Alcohol intake frequency: a few times a month Alcohol type: beer, wine and hard liquor Patient Tobacco Use Status: Never used Tobacco e-Cigarette/Vaping Use: Never Used Second Hand Smoke Exposure: No service: No Current occupational status: employed Current occupational exposures/hazards: No Sexual orientation: Straight/Heterosexual Gender identity: Female Cognitive needs: No Hearing needs: No Vision needs: Yes Female Reproductive History Menstrual Age of Menarche: 13 Review of Systems Const All systems reviewed & are unremarkable except as noted in HPI and below Physical Exam Extrem Other: Neuro: Normal sensation of the tips of all digits of bilateral hands in the office today No thenar or intrinsic wasting. Good APB muscle firing and good finger cross. Vascular: Capillary refill brisk. ROM: Patient can make a fist and extend all their digits. Skin: No lacerations or abrasions noted. General: No ecchymosis. No erythema or evidence of infection. Assessment & Plan Assessment & Plan (1) Carpal tunnel syndrome, bilateral: Code(s): G56.03 - Carpal tunnel syndrome, bilateral upper limbs Category: Medical Plan 1. Carpal tunnel syndrome, right Symptoms intermittent, daily, worse at night I educated the patient about the condition. I discussed both operative and nonoperative treatment options. The patient would like to proceed with surgery. The risks and benefits of operative treatment were discussed with the patient and the patient wishes to proceed with surgery. These risks include, but are not limited to, risk of damage to blood vessels, nerves, tendons, infection, recurrence, incomplete relief of preoperative symptoms, persistent pain, possible need for further surgery, and the risks associated with regional blocks and/or anesthesia. Plan is to take the patient to the operating room at some point in the next few weeks for the following procedures: 1. Right carpal tunnel release under local anesthesia All of the preoperative paperwork including the consent was discussed today. All of the patient's questions were answered in the clinic today. The patient understands that they will be in contact with our appointment scheduler to discuss scheduling their procedure. Patient denies diabetes, blood thinners, asthma, heart issues, lung issues, kidney issues, or current smoking. 2. Carpal tunnel syndrome, left Symptoms intermittent, daily, worse at night Patient would like to proceed with operative intervention on the right side prior to any intervention on the left, as she finds this side more bothersome Patient was advised that we can get her signed up for operative intervention in the left side at her postoperative appointment from the right side as long as she is healing well Patient was amenable to this plan Patient will follow-up as needed with any acute concerns Coding Level of Care Code New Pt Level 4 (11806) Diagnoses Carpal tunnel syndrome, bilateral G56.03
== END 2024-07-08 15:51 | disposition home or self-care (01) ==
PROVIDERS: PCP Internal Medicine
DX: G56.03 Carpal tunnel syndrome, bilateral upper limbs (principal)
CPT/HCPCS: 99204

== ENCOUNTER → 2024-07-08 15:01 | Outpatient (BNVA) | payer OTHER, SELFPAY | PROVIDERS: PCP Internal Medicine ==

== ENCOUNTER 2024-09-18 16:44 | Outpatient (REF) | payer OTHER, SELFPAY ==
[2024-09-18 17:05] LABS: MANUAL DIFF FLAG NO
[2024-09-18 17:37] LABS: Basophils Percent Auto 0.3 % (0-2); Eosinophils Absolute Auto 0.1 X10*3/uL (0.0-0.4); Eosinophils Percent Auto 1.7 % (0-4); Hematocrit 36.2 % (37.0-47.0); Hemoglobin 12.3 g/dl (12.0-16.0); Imm Gran Abs Auto 0.01 X10*3/uL (0.00-0.03); Imm Gran Pct Auto 0.3 % (0.0-0.4); Lymphocytes Absolute Auto 0.8 X10*3/uL (1.2-4.9); Lymphocytes Percent Auto 26.7 % (20-40); Mean Corpuscular Hemoglobin 29.6 pg (27.0-33.0); Mean Corpuscular Volume 87.2 fL (80.0-98.0); Mean Platelet Volume 9.4 fL (9.4-12.3); Monocytes Absolute Auto 0.3 X10*3/uL (0.1-1.2); Monocytes Percent Auto 11.5 % (2-11); Neutrophils Absolute Auto 1.8 x10*3/uL (2.0-8.3); Neutrophils Percent Auto 59.5 % (45-73); Platelet Count 163 X10*3/uL (160-400); Red Blood Count 4.15 X10*6/uL (4.20-5.50); Red Cell Distribution Width 11.8 % (11.0-16.0)
[2024-09-18 17:38] LABS: Alanine Aminotransferase 15 U/L (0-31); Alkaline Phosphatase 65 U/L (39-117); Anion Gap 10 (12-20); Aspartate Amino Transferase 23 U/L (5-31); Bilirubin Total 0.5 mg/dL (0.0-1.0); Blood Urea Nitrogen 15 mg/dL (9-16); C Reactive Protein 0.31 mg/dL (< or = 0.50); Calcium 9.4 mg/dL (8.4-10.2); Carbon Dioxide 25 mmol/L (22-29); Chloride 108 mmol/L (96-108); Estimated Glomerular Filt Rate > 60; Glucose Random 77 mg/dL (60-115); Potassium 3.9 mmol/L (3.3-5.1); Sodium 139 mmol/L (135-145); Total Protein 7.6 g/dL (6.5-8.0)
[2024-09-18 18:21] LABS: Total Protein Urine Random < 7 mg/dL (<12)
[2024-09-18 18:27] LABS: Erythrocyte Sedimentation Rate 25 MM/HR (0-20)
[2024-09-19 19:48] LABS: Anti DNA DS Antibody 6 IU/mL
[2024-09-22 08:58] LABS: Complement C3 109 mg/dL (83-193)
== END 2024-09-18 16:45 | disposition home or self-care (01) ==
LOC: HO.LABR 16:44
PROVIDERS: PCP Internal Medicine; Visit Provider Internal Medicine Rheumatology
DX: M32.19 Other organ or system involvement in systemic lupus erythematosus (principal); D70.8 Other neutropenia; Z79.899 Other long term (current) drug therapy
CPT/HCPCS: 36415; 80053; 82570; 84156; 85025; 85652; 86140; 86160; 86225

== ENCOUNTER 2024-09-29 09:24 | Day surgery (SDC) | payer OTHER, SELFPAY ==
[2024-09-29 10:13] VITALS: BMI 26.0
[2024-09-29 10:15] VITALS: BP 117/75; PULSE 72; RESP 18; TEMP 36.7; O2SAT 100
--- NOTE | 2024-09-29 11:39 | MHC.SHP ---
Pre-Procedural Eval Section A - 24 Hr Update-Section A only Date of Service: 09/29/24 The patient is an INPATIENT: No Changes since office visit: No Cold of Flu in the past 2 weeks, No New Medical Problems, No Changes in Medication and No Patient answered all questions The patient has been examined within 24 hours of the surgical procedure. The History & Physical has been completed within 30 days and I have reviewed it.: Yes Section B - Complete if H&P > 30 days Chief Complaint: Carpal tunnel syndrome, right upper limb Allergies: Allergies Allergy/AdvReac Type Severity Reaction Status Date / Time No Known Allergies Allergy Verified 09/29/24 10:20 Plan Diagnosis/Plan: Unchanged I have reviewed the history and physical and performed a pertinent physical examination on my patient. No changes have occurred unless specified. Time Spent With Patient Time: Total time managing care of this patient today ____ minutes.
--- NOTE | 2024-09-29 11:39 | W.PM.OPN ---
Operative Note Operative Note Date of Service: 09/29/24 Narrative: Preop diagnosis: 1. Right Carpal tunnel syndrome Postop diagnosis: same Procedure: 1. Right Carpal tunnel release Surgeon: Marley Gama MD Genetic Supervisor: None Anesthesia: local block using 1% lidocaine with epinephrine Findings: Thickened transverse carpal ligament. EBL: Less than 5 mL Specimens: None Complications: None Disposition: Brought to recovery room in stable condition Plan: Follow-up for 10-14 days for wound check and suture removal Indications: The patient is 49 years old, with right carpal tunnel syndrome that has been unresponsive to nonoperative management. The risks and benefits of operative treatment including but not limited to risk of damage to blood vessels, nerves, tendons, infection, persistent pain, persistent symptoms, or possible need for additional surgery were discussed with the patient and the patient wishes to proceed with surgery. Procedure: Once consent was obtained a local block was performed using a combination of 1% lidocaine with epinephrine. The patient was then brought back to the operating suite and placed on the operative table in supine position. The right upper extremity was prepped and draped in a standard surgical fashion. Once assured that we had a good block, a 2.0 cm longitudinal incision was made centered over the carpal tunnel. The incision was made through the skin to the subcutaneous tissues using a #15 blade. Dissection was made down to the level of the transverse carpal ligament with care being taken to protect the palmar cutaneous nerve. Once the transverse carpal ligament was clearly visualized, a longitudinal incision was made in the transverse carpal ligament 1st using a #15 blade, then using tenotomy scissors under direct visualization. Care was taken to look for and protect the motor branch of the median nerve when seen in this area. Once satisfied with our carpal tunnel release the wound was copiously irrigated with normal saline and hemostasis was obtained with a brief period of local pressure. The skin edges were reapproximated with some 5.0 nylon suture material and a sterile dressing was applied. The patient appears to have tolerated the procedure well and with no complications. All digits were well vascularized at the conclusion of the case.
[2024-09-29 12:52] VITALS: BP 109/53; PULSE 67; RESP 16; O2SAT 97
== END 2024-09-29 12:53 | disposition home or self-care (01) ==
PROVIDERS: PCP Internal Medicine; Visit Provider Orthopaedic Surgery
PROC: (CPT 64721; principal; 2024-09-29 10:50)
DX: G56.01 Carpal tunnel syndrome, right upper limb (principal); M25.531 Pain in right wrist; R20.0 Anesthesia of skin; R20.2 Paresthesia of skin; M89.8X8 Other specified disorders of bone, other site; M32.9 Systemic lupus erythematosus, unspecified; R06.00 Dyspnea, unspecified
CPT/HCPCS: 64721; J0171; J2003

== ENCOUNTER → 2024-09-29 09:24 | Outpatient (BNV) | payer OTHER, SELFPAY | PROVIDERS: PCP Internal Medicine; Visit Provider Orthopaedic Surgery | DX: G56.01 Carpal tunnel syndrome, right upper limb (principal) | CPT/HCPCS: 64721 ==

== ENCOUNTER 2024-10-14 12:57 | Outpatient (AMB) | payer OTHER, SELFPAY ==
--- NOTE | 2024-10-14 13:04 | A.OFFVIS_ITS ---
Vital Signs 10/14/24 13:11 Height 5 ft 3 in Weight 147 lb BMI 26.0 Intake Visit Reasons: PO RT CTR 09/29/24 AR Intake Note: Deandra is a 49 year old right hand dominant female who presents today post operatively s/p Right Carpal Tunnel release w/ Dr Gama DOS: 09/29/2024. Patient reports she is doing well, states intermittent spasms at her wrist. Her numbness has subsided. She continues to have difficulty with hand motions such as opening a bottle. Allergies No Known Allergies Allergy (Verified 10/14/24 13:11) HPI HPI PO RT CTR 09/29/24 AR: Details: Deandra is a 49 year old right hand dominant female who presents today post operatively s/p Right Carpal Tunnel release w/ Dr Gama DOS: 09/29/2024. Patient reports she is doing well, states intermittent spasms at her wrist. Her numbness has subsided. She continues to have difficulty with hand motions such as opening a bottle. Patient reports that she is still experience intermittent numbness and tingling in the left hand as well, and would like to get signed up for left-sided surgery today. No other acute complaints or concerns at this time. [facility] Medical History Dyspnea Allergies Pneumonitis Abnormal uterine bleeding Uterine fibroid Vaginal discharge COVID-19 virus infection Cough Vaginal itching Bacteremia due to Gram-negative bacteria Acute bacterial pyelonephritis [place] Systemic lupus erythematosus Surgical History History of hysterectomy (~12/2023) History of colonoscopy History of tubal ligation Family History (Updated 06/09/24 @ 17:32 by Deisy Adrian MD) Mother Rheumatoid arthritis Stroke Hypertension Sister Rheumatoid arthritis Cervical cancer Paternal Grandfather Colon cancer Maternal Grandfather Colon cancer Prostate cancer Maternal Aunt Colon cancer Father No problems noted. Social History Household Members Other:: granchild Housing: House Are you a primary assisted living care manager to a significant other at home: No Do you presently have visiting nurse or other home services: No Alcohol intake: current Alcohol intake frequency: a few times a month Alcohol type: beer, wine and hard liquor Patient Tobacco Use Status: Never used Tobacco e-Cigarette/Vaping Use: Never Used Second Hand Smoke Exposure: No service: No Current occupational status: employed Current occupational exposures/hazards: No Sexual orientation: Straight/Heterosexual Gender identity: Female Cognitive needs: No Hearing needs: No Vision needs: Yes Female Reproductive History Menstrual Age of Menarche: 13 Review of Systems Const All systems reviewed & are unremarkable except as noted in HPI and below Physical Exam Vital Signs: BMI result Body Mass Index 26.0 Extrem Other: Patient is alert, oriented, and in no acute distress. Neuro: Normal sensation of the tips of all digits of the right hand at this time Normal sensation of the tips of all digits of the left hand in the office today Vascular: Cap refill brisk Pain: Minimal tenderness to palpation about the incision site on the volar right wrist ROM: Patient is able to flex and extend all digits of bilateral hands fully and without difficulty Skin: Well approximated and well healing incision site noted on the volar right wrist No lacerations or abrasions in the left wrist noted General: No ecchymosis, erythema, or evidence of infection. Psych: Appears grossly normal Affect normal Attitude cooperative Assessment & Plan Assessment & Plan (1) Carpal tunnel syndrome, bilateral: Code(s): G56.03 - Carpal tunnel syndrome, bilateral upper limbs Category: Medical Plan 1. Status post right carpal tunnel release DOS 09/29/2024 Patient appears to be recovering well postoperatively Patient is educated about the typical recovery course Patient is educated that she will not require any acute follow-up with us for her right carpal tunnel release, as she appears to be recovering very well Patient was amenable to this plan 2. Left carpal tunnel syndrome Symptoms intermittent, daily, worse at night\ I educated the patient about the condition. I discussed both operative and nonoperative treatment options. The patient would like to proceed with surgery. The risks and benefits of operative treatment were discussed with the patient and the patient wishes to proceed with surgery. These risks include, but are not limited to, risk of damage to blood vessels, nerves, tendons, infection, recurrence, incomplete relief of preoperative symptoms, persistent pain, possible need for further surgery, and the risks associated with regional blocks and/or anesthesia. Plan is to take the patient to the operating room at some point in the next few weeks for the following procedures: 1. Left carpal tunnel release under local anesthesia All of the preoperative paperwork including the consent was discussed today. All of the patient's questions were answered in the clinic today. The patient understands that they will be in contact with our surgical services assistant to discuss scheduling their procedure. Patient denies diabetes, blood thinners, asthma, heart issues, lung issues, kidney issues, or current smoking. Coding Level of Care Code Est Pt Level 4 (29887) Diagnoses Carpal tunnel syndrome, bilateral G56.03
[2024-10-14 13:11] VITALS: BMI 26.0
== END 2024-10-14 13:30 | disposition home or self-care (01) ==
PROVIDERS: PCP Internal Medicine
DX: G56.03 Carpal tunnel syndrome, bilateral upper limbs (principal)
CPT/HCPCS: 99214

== ENCOUNTER 2025-01-13 14:47 | Outpatient (AMB) | payer OTHER, SELFPAY ==
--- NOTE | 2025-01-13 14:53 | A.OFFVIS_ITS ---
Vital Signs 01/13/25 14:54 Height 5 ft 3 in Weight 147 lb BMI 26.0 Intake Visit Reasons: Preop LT CTR 01/22/25 AR Intake Note: Deandra is a 49 year old here for a pre-op visit for LT CTR scheduled for 01/22/25. Allergies No Known Allergies Allergy (Verified 01/13/25 14:55) HPI HPI Preop LT CTR 01/22/25 AR: Details: Deandra is a 49 year old here for a pre-op visit for LT CTR scheduled for 01/22/25. Patient reports that her symptoms have remained consistent since previous evaluation, and that they are intermittent, daily, and worse at night. Patient states she would still like to proceed with left-sided carpal tunnel release as plan. Patient reports that she is experiencing a little bit of sensitivity around the incision site for right carpal tunnel release, but states that this has improved dramatically since previous evaluation and she is not concerned about this. [facility] Medical History Dyspnea Allergies Pneumonitis Abnormal uterine bleeding Uterine fibroid Vaginal discharge COVID-19 virus infection Cough Vaginal itching Bacteremia due to Gram-negative bacteria Acute bacterial pyelonephritis [place] Systemic lupus erythematosus Surgical History History of hysterectomy (~12/2023) History of colonoscopy History of tubal ligation Family History Mother Rheumatoid arthritis Stroke Hypertension Sister Rheumatoid arthritis Cervical cancer Paternal Grandfather Colon cancer Maternal Grandfather Colon cancer Prostate cancer Maternal Aunt Colon cancer Father No problems noted. Social History Household Members Other:: granchild Housing: House Are you a primary clinical care leader to a significant other at home: No Do you presently have visiting nurse or other home services: No Alcohol intake: current Alcohol intake frequency: a few times a month Alcohol type: beer, wine and hard liquor Patient Tobacco Use Status: Never used Tobacco e-Cigarette/Vaping Use: Never Used Second Hand Smoke Exposure: No service: No Current occupational status: employed Current occupational exposures/hazards: No Sexual orientation: Straight/Heterosexual Gender identity: Female Cognitive needs: No Hearing needs: No Vision needs: Yes Female Reproductive History Menstrual Age of Menarche: 13 Review of Systems Const All systems reviewed & are unremarkable except as noted in HPI and below Physical Exam Vital Signs: BMI result Body Mass Index 26.0 Extrem Other: Patient is alert, oriented, and in no acute distress. Neuro: Normal sensation of the tips of all digits of the right hand at this time Normal sensation of the tips of all digits of the left hand in the office today Vascular: Cap refill brisk Pain: Minimal tenderness to palpation about the incision site on the volar right wrist ROM: Patient is able to flex and extend all digits of bilateral hands fully and without difficulty Skin: Well approximated and well healed incision site noted on the volar right wrist No lacerations or abrasions in the left wrist noted General: No ecchymosis, erythema, or evidence of infection. Psych: Appears grossly normal Affect normal Attitude cooperative Assessment & Plan Assessment & Plan (1) Carpal tunnel syndrome, bilateral: Code(s): G56.03 - Carpal tunnel syndrome, bilateral upper limbs Category: Medical Plan 1. Status post right carpal tunnel release DOS 09/29/2024 Patient appears to be recovering well postoperatively Patient is educated about the typical recovery course Patient is educated that she will not require any acute follow-up with us for her right carpal tunnel release, as she appears to be recovering very well Patient was amenable to this plan 2. Left carpal tunnel syndrome Symptoms intermittent, daily, worse at night\ I educated the patient about the condition. I discussed both operative and nonoperative treatment options. The patient would like to proceed with surgery. The risks and benefits of operative treatment were discussed with the patient and the patient wishes to proceed with surgery. These risks include, but are not limited to, risk of damage to blood vessels, nerves, tendons, infection, recurrence, incomplete relief of preoperative symptoms, persistent pain, possible need for further surgery, and the risks associated with regional blocks and/or anesthesia. Plan is to take the patient to the operating room at some point in the next few weeks for the following procedures: 1. Left carpal tunnel release under local anesthesia All of the preoperative paperwork including the consent was discussed today. All of the patient's questions were answered in the clinic today. The patient understands that they will be in contact with our personnel scheduler to discuss scheduling their procedure. Patient denies diabetes, blood thinners, asthma, heart issues, lung issues, kidney issues, or current smoking. Coding Level of Care Code Est Pt Level 4 (05448) Diagnoses Carpal tunnel syndrome, bilateral G56.03
[2025-01-13 14:54] VITALS: BMI 26.0
== END 2025-01-13 15:06 | disposition home or self-care (01) ==
LOC: HO.HOS 14:48
PROVIDERS: PCP Internal Medicine
DX: G56.03 Carpal tunnel syndrome, bilateral upper limbs (principal)
CPT/HCPCS: 99024

== ENCOUNTER 2025-01-22 09:29 | Day surgery (SDC) | payer OTHER, SELFPAY ==
[2025-01-22 09:41] VITALS: BP 139/96; PULSE 77; RESP 16; TEMP 36.6; O2SAT 98; BMI 26.6
--- NOTE | 2025-01-22 11:06 | MHC.SHP ---
Pre-Procedural Eval Section A - 24 Hr Update-Section A only Date of Service: 01/22/25 The patient is an INPATIENT: No Changes since office visit: No Cold of Flu in the past 2 weeks, No New Medical Problems, No Changes in Medication and No Patient answered all questions The patient has been examined within 24 hours of the surgical procedure. The History & Physical has been completed within 30 days and I have reviewed it.: Yes Section B - Complete if H&P > 30 days Chief Complaint: Carpal tunnel syndrome, left upper limb Allergies: Allergies Allergy/AdvReac Type Severity Reaction Status Date / Time No Known Allergies Allergy Verified 01/22/25 09:40 Plan Diagnosis/Plan: Unchanged I have reviewed the history and physical and performed a pertinent physical examination on my patient. No changes have occurred unless specified. Time Spent With Patient Time: Total time managing care of this patient today ____ minutes.
--- NOTE | 2025-01-22 11:06 | W.PM.OPN ---
Operative Note Operative Note Date of Service: 01/22/25 Narrative: Preop diagnosis: 1. Left Carpal tunnel syndrome Postop diagnosis: same Procedure: 1. Left Carpal tunnel release Surgeon: Marley Gama MD Substation Technician: Reno MORALES Anesthesia: local block using 1% lidocaine with epinephrine Findings: Thickened transverse carpal ligament. EBL: Less than 5 mL Specimens: None Complications: None Disposition: Brought to recovery room in stable condition Plan: Follow-up for 10-14 days for wound check and suture removal Indications: The patient is 49 years old, with left carpal tunnel syndrome that has been unresponsive to nonoperative management. The risks and benefits of operative treatment including but not limited to risk of damage to blood vessels, nerves, tendons, infection, persistent pain, persistent symptoms, or possible need for additional surgery were discussed with the patient and the patient wishes to proceed with surgery. Procedure: Once consent was obtained a local block was performed using a combination of 1% lidocaine with epinephrine. The patient was then brought back to the operating suite and placed on the operative table in supine position. The left upper extremity was prepped and draped in a standard surgical fashion. Once assured that we had a good block, a 2.0 cm longitudinal incision was made centered over the carpal tunnel. The incision was made through the skin to the subcutaneous tissues using a #15 blade. Dissection was made down to the level of the transverse carpal ligament with care being taken to protect the palmar cutaneous nerve. Once the transverse carpal ligament was clearly visualized, a longitudinal incision was made in the transverse carpal ligament 1st using a #15 blade, then using tenotomy scissors under direct visualization. Care was taken to look for and protect the motor branch of the median nerve when seen in this area. Once satisfied with our carpal tunnel release the wound was copiously irrigated with normal saline and hemostasis was obtained with a brief period of local pressure. The skin edges were reapproximated with some 5.0 nylon suture material and a sterile dressing was applied. The patient appears to have tolerated the procedure well and with no complications. All digits were well vascularized at the conclusion of the case.
[2025-01-22 12:09] VITALS: BP 122/68; PULSE 59; RESP 18; O2SAT 99
== END 2025-01-22 12:15 | disposition home or self-care (01) ==
PROVIDERS: PCP Internal Medicine; Visit Provider Orthopaedic Surgery
PROC: (CPT 64721; principal; 2025-01-22 11:10)
DX: G56.02 Carpal tunnel syndrome, left upper limb (principal); Z98.890 Other specified postprocedural states; R06.00 Dyspnea, unspecified; R05.9 Cough, unspecified; M32.9 Systemic lupus erythematosus, unspecified
CPT/HCPCS: 64721; J0171; J2003

== ENCOUNTER → 2025-01-22 09:29 | Outpatient (BNV) | payer OTHER, SELFPAY | PROVIDERS: PCP Internal Medicine; Visit Provider Orthopaedic Surgery | DX: G56.02 Carpal tunnel syndrome, left upper limb (principal) | CPT/HCPCS: 64721 ==

== ENCOUNTER 2025-02-02 15:22 | Outpatient (REF) | payer OTHER, SELFPAY ==
[2025-02-02 15:45] LABS: MANUAL DIFF FLAG NO
[2025-02-02 16:03] LABS: Basophils Percent Auto 0.3 % (0-2); Eosinophils Absolute Auto 0.1 X10*3/uL (0.0-0.4); Eosinophils Percent Auto 1.6 % (0-4); Hemoglobin 12.4 g/dl (12.0-16.0); Lymphocytes Absolute Auto 0.9 X10*3/uL (1.2-4.9); Lymphocytes Percent Auto 29.2 % (20-40); Mean Corpuscular HGB Conc 34.4 g/dl (31.0-35.0); Mean Corpuscular Hemoglobin 30.3 pg (27.0-33.0); Mean Platelet Volume 9.2 fL (9.4-12.3); Monocytes Absolute Auto 0.3 X10*3/uL (0.1-1.2); Monocytes Percent Auto 10.8 % (2-11); Neutrophils Absolute Auto 1.8 x10*3/uL (2.0-8.3); Neutrophils Percent Auto 58.1 % (45-73); Platelet Count 176 X10*3/uL (160-400); Red Blood Count 4.09 X10*6/uL (4.20-5.50); Red Cell Distribution Width 12.4 % (11.0-16.0); White Blood Count 3.2 X10*3/uL (4.8-10.8)
[2025-02-02 16:26] LABS: Alanine Aminotransferase 14 U/L (0-31); Albumin Level 3.9 g/dL (3.5-5.0); Alkaline Phosphatase 54 U/L (39-117); Anion Gap 9 (12-20); Aspartate Amino Transferase 23 U/L (5-31); Bilirubin Total 0.5 mg/dL (0.0-1.0); Blood Urea Nitrogen 12 mg/dL (9-16); C Reactive Protein 0.39 mg/dL (< or = 0.50); Carbon Dioxide 26 mmol/L (22-29); Chloride 107 mmol/L (96-108); Estimated Glomerular Filt Rate > 60; Glucose Random 95 mg/dL (60-115); Potassium 3.8 mmol/L (3.3-5.1); Sodium 138 mmol/L (135-145); Total Protein 6.8 g/dL (6.5-8.0)
[2025-02-02 16:35] LABS: Creatinine Urine 20.97 mg/dL; Total Protein Urine Random < 7 mg/dL (<12)
[2025-02-02 16:48] LABS: Erythrocyte Sedimentation Rate 18 MM/HR (0-20)
[2025-02-03 14:34] LABS: Complement C3 109 mg/dL (83-193)
[2025-02-05 08:33] LABS: Anti DNA DS Antibody 4 IU/mL
== END 2025-02-02 15:23 | disposition home or self-care (01) ==
LOC: HO.LABR 15:22
PROVIDERS: PCP Internal Medicine; Visit Provider Internal Medicine Rheumatology
DX: M32.19 Other organ or system involvement in systemic lupus erythematosus (principal); D70.8 Other neutropenia; Z79.899 Other long term (current) drug therapy
CPT/HCPCS: 36415; 80053; 82570; 84156; 85025; 85652; 86140; 86160; 86225

== ENCOUNTER 2025-02-06 14:56 | Outpatient (AMB) | payer OTHER, SELFPAY ==
--- NOTE | 2025-02-06 15:08 | A.OFFVIS_ITS ---
Vital Signs 02/06/25 15:17 Height 5 ft 3 in Weight 150 lb BMI 26.6 Handedness Right Intake Visit Reasons: PO- LT CTR 01/22/25 AR Intake Note: Deandra is a 49 year old right hand dominant female who presents today for a post operative visit status post left carpal tunnel release DOS: 01/22/[address] Marley Gama. Patient reports she has been feeling random twinging at the incision site. She expresses she feels her symtpoms are the same as they were before surgery. Denies any discharge from incision, tenderness with palpitation. Sutures removed and steri strips applied. Allergies No Known Allergies Allergy (Verified 02/06/25 15:16) HPI HPI PO- LT CTR 01/22/25 AR: Details: Deandra is a 49 year old right hand dominant female who presents today for a post operative visit status post left carpal tunnel release DOS: 01/22/[address] Marley Gama. Patient reports she has been feeling random twinging at the incision site. She expresses she feels her symtpoms have resolved since surgery. Denies any discharge from incision, tenderness with palpitation. Sutures removed and steri strips applied. [facility] Medical History Dyspnea Allergies Pneumonitis Abnormal uterine bleeding Uterine fibroid Vaginal discharge COVID-19 virus infection Cough Vaginal itching Bacteremia due to Gram-negative bacteria Acute bacterial pyelonephritis [place] Systemic lupus erythematosus Surgical History History of carpal tunnel release History of hysterectomy (~12/2023) History of colonoscopy History of tubal ligation Family History Mother Rheumatoid arthritis Stroke Hypertension Sister Rheumatoid arthritis Cervical cancer Paternal Grandfather Colon cancer Maternal Grandfather Colon cancer Prostate cancer Maternal Aunt Colon cancer Father No problems noted. Social History Household Members Other:: granchild Housing: House Are you a primary respiratory care program director to a significant other at home: No Do you presently have visiting nurse or other home services: No Alcohol intake: current Alcohol intake frequency: a few times a month Alcohol type: beer, wine and hard liquor Patient Tobacco Use Status: Never used Tobacco e-Cigarette/Vaping Use: Never Used Second Hand Smoke Exposure: No service: No Current occupational status: employed Current occupational exposures/hazards: No Sexual orientation: Straight/Heterosexual Gender identity: Female Cognitive needs: No Hearing needs: No Vision needs: Yes Female Reproductive History Menstrual Age of Menarche: 13 Review of Systems Const All systems reviewed & are unremarkable except as noted in HPI and below Physical Exam Vital Signs: BMI result Body Mass Index 26.6 Extrem Other: Patient is alert, oriented, and in no acute distress. Neuro: Normal sensation of the tips of all digits of the left hand at this time Vascular: Cap refill brisk Pain: Some tenderness to palpation about the incision site on the volar left wrist No pain with range of motion ROM: Patient is able to make a closed fist and extend all digits of the left hand fully and without difficulty Skin: Well approximated and well healing incision site noted over the volar left wrist No lacerations or abrasions. General: No ecchymosis, erythema, or evidence of infection. Psych: Appears grossly normal Affect normal Attitude cooperative Assessment & Plan Assessment & Plan (1) Carpal tunnel syndrome, bilateral: Code(s): G56.03 - Carpal tunnel syndrome, bilateral upper limbs Category: Medical Plan 1. Status post left carpal tunnel release DOS 01/22/2025 Patient is recovering well postoperatively Patient is educated about the typical recovery course No acute follow-up necessary, as patient appears to be recovering very well Patient is amenable to this plan Follow-up as needed Coding Level of Care Code Global (80267) Diagnoses Carpal tunnel syndrome, bilateral G56.03
[2025-02-06 15:17] VITALS: BMI 26.6
== END 2025-02-06 15:31 | disposition home or self-care (01) ==
LOC: HO.HOS 14:57
PROVIDERS: PCP Internal Medicine
DX: G56.03 Carpal tunnel syndrome, bilateral upper limbs (principal)
CPT/HCPCS: 99024

== ENCOUNTER → 2025-02-06 14:56 | Outpatient (BNVA) | payer OTHER, SELFPAY | PROVIDERS: PCP Internal Medicine ==

== ENCOUNTER 2025-04-21 16:42 | Outpatient (REF) | payer OTHER, SELFPAY ==
--- NOTE | ~2025-04-21 | XR_ITS ---
EXAMINATION: XR CERVICAL SPINE CLINICAL INFORMATION: M54.2 - Cervicalgia COMPARISON: None available. TECHNIQUE: AP lateral and atlantoodontoid views. FINDINGS: Craniocervical junction is intact. Small marginal osteophyte formation decreased intervertebral disc height from C4 to C6 pronounced at C4-5. A reverse curvature apex at C4-5. No gross malalignment. No lytic or blastic lesions. Upper airway is patent. XR/XR cervical spine 3V IMPRESSION: Multilevel cervical spondylosis C4 C6 with a mild [place] deformity. Electronically signed by: Ramon Siegel MD 04/22/2025 07:08 AM EDT
== END 2025-04-21 16:43 | disposition home or self-care (01) ==
LOC: HO.XRAY 16:42
PROVIDERS: PCP Internal Medicine; Visit Provider Internal Medicine
DX: M54.2 Cervicalgia (principal)
CPT/HCPCS: 72040

== ENCOUNTER → 2025-04-21 16:46 | Outpatient (BNV) | payer OTHER, SELFPAY | PROVIDERS: PCP Internal Medicine; Visit Provider Radiology Diagnostic Radiology | DX: M47.812 Spondylosis without myelopathy or radiculopathy, cervical region (principal) | CPT/HCPCS: 72040 ==

== ENCOUNTER 2025-05-19 16:04 | Outpatient (REF) | payer OTHER, SELFPAY ==
--- OUTSIDE RECORDS SUMMARY | 2025-05-19 18:34 | XMS_ITS | Clinical Summary ---
Author Organization [facility] Address [address] [place] [phone] Phone Care Team Providers Care Feather Mixer Name Role Phone Deisy Pardo MD Primary Care Provid er Allergies No known active allergies Medications cyanocobalamin, vitamin B-12, 1000 MCG tablet Take 1,000 mcg by mouth daily. Active ferrous sulfate 325 mg (65 mg lac courte oreilles iron) tabletIndications :Low serum ferritin level TAKE 1 TABLET BY MOUTH TWICE A DAY 60 tablet 05/15/20 23 Active cetirizine (ZYRTEC) 10 MG tablet Take 1 tablet by mouth every morning. 08/23/20 23 Active albuterol 90 mcg/actuation inhaler Inhale 2 puffs into the lungs every 6 (six) hours as needed. 01/31/20 24 Active amoxicillin (AMOXIL) 500 MG capsuleIndication s:Systemic lupus erythematosus with other organ involvement, unspecified SLE type,Other neutropenia Take 4 capsules (2,000 mg total) by mouth as directed. 2000 mg 1 hour prior to dental procedures 4 capsule 1 02/26/20 25 Active hydroxychloroquin e (PLAQUENIL) 200 mg tabletIndications :Systemic lupus erythematosus with other organ involvement, unspecified SLE type TAKE 1 TABLET BY MOUTH TWICE A DAY WITH FOOD OR MILK 180 tablet 04/28/20 25 Active hydroxychloroquin e (PLAQUENIL) 200 mg tabletIndications :Systemic lupus erythematosus with other organ involvement, unspecified SLE type TAKE 1 TABLET BY MOUTH TWICE A DAY WITH FOOD OR MILK 180 tablet 3 10/01/19 24 025 Discontin ued(Reord er) Active Problems Problem Noted Date Diagnosed Date Status post carpal tunnel release 02/25/2025 Assessment & Plan (03/29/2025 9:01 PM EDT): Carefully continue joint protection, energy conservation techniques as educated by OT along with brace for extended use. Follow-up with hand surgeon as scheduled and needed. Raynaud's disease without gangrene 09/24/2024 Assessment & Plan (02/25/2025 4:49 PM EDT): Keep warm, dress in layers. Optimize stress management strategies. Avoid vasoconstrictors in OTC products for cold/flu and sinus. Assessment & Plan (09/24/2024 4:16 PM EST): Keep warm, dress in layers. Optimize stress management strategies. Avoid vasoconstrictors in OTC products for cold/flu and sinus. Carpal tunnel syndrome of right wrist 09/24/2024 Bilateral carpal tunnel syndrome 09/24/2024 Assessment & Plan (09/24/2024 4:50 PM EST): Documented by EMG[place]NCS from 07/03/2024 at [facility] L>R however her symptoms are more prominent on the right side therefore she is scheduled for R CTS release surgery on Sunday-09/29/[address] Gama at [facility] [place] Joint protection, energy conservation techniques reviewed and strongly encouraged. Use splinting for nighttime and for early post surgical release of R CTS period. Pain in both hands 03/21/2024 Assessment & Plan (03/30/2024 7:50 PM EDT): Due to persisting pain, stiffness and swelling with numbing and fingertips in addition to positive family history of rheumatoid arthritis in mother and sister I took the liberty of getting x-rays to make sure that there are no early signs of inflammatory changes. Use warm pack versus warm shower prior to gentle, regular ROM, stretching and muscle strengthening exercises-she is well versed in them after prior OT trial. Continue joint protection, energy conservation techniques and consider assistive devices and splinting as necessary. Family history of rheumatoid arthritis Assessment & Plan (02/25/2025 4:49 PM EDT): I reviewed with Deandra that that having mother and sister diagnosed with rheumatoid arthritis puts her at an increased risk for developing it herself however both rheumatoid factor and CCP antibody returned negative and hand x-rays from 03/21/2024 did not reveal any signs of inflammatory arthritis .. Assessment & Plan (09/24/2024 4:48 PM EST): I reviewed with Deandra that that having mother and sister diagnosed with rheumatoid arthritis puts her at an increased risk for developing it herself however both rheumatoid factor and CCP antibody returned negative and hand x-rays from 03/21/2024 did not reveal any signs of inflammatory arthritis .. Assessment & Plan (06/23/2024 4:27 PM EDT): I reviewed with Deandra that that having mother and sister diagnosed with rheumatoid arthritis puts her at an increased risk for developing it herself therefore I requested checking her for immunologic propensity by ordering rheumatoid factor and CCP antibody today. Assessment & Plan (03/30/2024 7:51 PM EDT): I reviewed with Matthew that that having mother and sister diagnosed with rheumatoid arthritis puts her at an increased risk for developing it herself therefore I requested checking her for immunologic propensity by ordering rheumatoid factor and CCP antibody today. S/P laparoscopic hysterectomy 03/21/2024 Assessment & Plan (06/24/2024 6:03 PM EDT): Per her report well tolerated, benign uterine tissue pathologic evaluation. Improving anemia Assessment & Plan (03/30/2024 7:53 PM EDT): Per her report will tolerated, benign uterine tissue pathologic evaluation. Improving anemia Paresthesia of hand, bilateral 03/21/2024 Assessment & Plan (06/23/2024 4:33 PM EDT): Due to inability to sleep at night I have offered her a low-dose gabapentin nightly hoping for reducing uncomfortable numbing and allowing her to get restful sleep. She was informed about possible side effects and asked to communicate if any- pamphlet to take home as reference . Assessment & Plan (03/30/2024 7:54 PM EDT): Due to inability to sleep at night I have offered her a low-dose gabapentin nightly hoping for reducing uncomfortable numbing and allowing her to get restful sleep. She was informed about possible side effects and asked to communicate if any- pamphlet to take home as reference . Advice given about COVID-19 virus infection 01/25 Assessment & Plan (02/05/2022 12:24 PM EDT): I have reviewed with Deandra benefits of COVID-19 vaccination and encouraged her to get it since she did not have any side effects from vaccinations in the past. There is no need to adjust Plaquenil dosing for it. There is no documented superiority of Pfizer over Moderna vaccine or vice versa. Need for immunization against influenza 07/27/20 21 Systemic lupus erythematosus 10/15/2020 Assessment & Plan (03/29/2025 8:59 PM EDT): Clinically stable-hand x-rays in late February 2024 returned normal, rheumatoid factor and CCP antibodies were benign-no signs of rheumatoid arthritis. Avoid falls, injuries, overuse. Remain on Plaquenil however adjust the dose due to almost 2 decades of use to alternating 2 tablets 200 mg daily with 1 tablet daily every other day. Keep well-hydrated. Get enough rest and sleep. Well-balanced nutritionally diet. Gentle, regular exercise routine as tolerated. Avoid sick contacts. Age-appropriate screenings and preventive strategies. Daily sun protection. Call if questions or problems. Take amoxicillin 2000 mg 1 hour prior to dental procedure. Assessment & Plan (09/24/2024 4:46 PM EST): Clinically stable-hand x-rays in February 2024 returned normal, rheumatoid factor and CCP antibodies were benign-no signs of rheumatoid arthritis. Avoid falls, injuries, overuse. Remain on Plaquenil however adjust the dose due to almost 2 decades of use to alternating 2 tablets 200 mg daily with 1.5 tablet daily every other day. Keep well-hydrated. Get enough rest and sleep. Well-balanced nutritionally diet. Gentle, regular exercise routine as tolerated. Avoid sick contacts. Age-appropriate screenings and preventive strategies. Daily sun protection. Call if questions or problems. Take amoxicillin 1 hour prior to dental procedure. Assessment & Plan (06/24/2024 5:47 PM EDT): Clinically appeared more active within PIP joints of her hands, R>L on previous visit therefore new set of hand x-rays, rheumatoid factor and CCP antibody requested due to positive family history of mother and sister with rheumatoid arthritis. Remain on Plaquenil however adjust the dose due to almost 2 decades of use to alternating 2 tablets 200 mg daily with 1.5 tablet daily every other day. Keep well-hydrated. Get enough rest and sleep. Well-balanced nutritionally diet. Gentle, regular exercise routine as tolerated. Avoid sick contacts. Age-appropriate screenings and preventive strategies. Daily sun protection. Call if questions or problems. Take amoxicillin 1 hour prior to dental procedure. Assessment & Plan (03/30/2024 7:46 PM EDT): Clinically appears more active with an PIP joints of her hands, R>L therefore new set of hand x-rays, rheumatoid factor and CCP antibody requested due to positive family history of mother and sister with rheumatoid arthritis. Remain on current medication. Keep well-hydrated. Get enough rest and sleep. Well-balanced nutritionally diet. Gentle, regular exercise routine as tolerated. Avoid sick contacts. Age-appropriate screenings and preventive strategies. Daily sun protection. Call if questions or problems. Take amoxicillin 1 hour prior to dental procedure. Assessment & Plan (10/01/2023 4:21 PM EST): Due to worsening leukopenia and anemia get the labs monitoring safety and efficacy of therapy prior to next visit in 7 wks. Remain on current medication. Keep well-hydrated. Get enough rest and sleep. Well-balanced nutritionally diet. Gentle, regular exercise routine as tolerated. Avoid sick contacts. Age-appropriate screenings and preventive strategies. Daily sun protection. Call if questions or problems. Take amoxicillin 1 hour prior to dental procedure. Assessment & Plan (03/06/2023 4:45 PM EDT): Due to worsening leukopenia and anemia get the labs monitoring safety and efficacy of therapy prior to next visit in 7 wks. Remain on current medication. Keep well-hydrated. Get enough rest and sleep. Well-balanced nutritionally diet. Gentle, regular exercise routine as tolerated. Avoid sick contacts. Age-appropriate screenings and preventive strategies. Daily sun protection. Call if questions or problems. Take amoxicillin 1 hour prior to dental procedure. Assessment & Plan (02/05/2022 12:20 PM EDT): Get the labs monitoring safety and efficacy of therapy prior to next visit in 3 mths. Remain on current medication. Keep well-hydrated. Get enough rest and sleep. Well-balanced nutritionally diet. Gentle, regular exercise routine as tolerated. Avoid sick contacts. Age-appropriate screenings and preventive strategies. Daily sun protection. Call if questions or problems. Take amoxicillin 1 hour prior to dental procedure. Assessment & Plan (07/27/2021 4:35 PM EST): Get the labs monitoring safety and efficacy of therapy prior to next visit in 2 mths. Remain on current medication. Keep well-hydrated. Get enough rest and sleep. Well-balanced nutritionally diet. Gentle, regular exercise routine as tolerated. Avoid sick contacts. Age-appropriate screenings and preventive strategies. Daily sun protection. Call if questions or problems. Take amoxicillin 1 hour prior to dental procedure. Assessment & Plan (01/31/2021 4:39 PM EDT): Get the labs monitoring safety and efficacy of therapy prior to next visit in 2 mths. Remain on current medication. Keep well-hydrated. Get enough rest and sleep. Well-balanced nutritionally diet. Gentle, regular exercise routine as tolerated. Avoid sick contacts. Age-appropriate screenings and preventive strategies. Daily sun protection. Call if questions or problems. Take amoxicillin 1 hour prior to dental procedure. Assessment & Plan (10/15/2020 8:17 AM EST): Get the labs monitoring safety and efficacy of therapy prior to next visit in 2 mths. Remain on current medication. Keep well-hydrated. Get enough rest and sleep. Well-balanced nutritionally diet. Gentle, regular exercise routine as tolerated. Avoid sick contacts. Age-appropriate screenings and preventive strategies. Daily sun protection. Call if questions or problems. Take amoxicillin 1 hour prior to dental procedure. Other insomnia 07/05/2020 Assessment & Plan (06/23/2024 4:25 PM EDT): Sleep hygiene. Listen nightly to relaxation tapes and every time she wakes up. If not able to keep a sleep may try melatonin 3-5 mg nightly. Assessment & Plan (01/31/2021 4:38 PM EDT): Sleep hygiene. Listen nightly to relaxation tapes and every time she wakes up. If not able to keep a sleep may try melatonin 3-5 mg nightly. Assessment & Plan (10/20/2020 9:48 PM EST): Sleep hygiene. Listen nightly to relaxation tapes and every time she wakes up. Consider listening to sleep with me versus CALM bijal. If not able to keep a sleep may try melatonin 3-5 mg nightly. Assessment & Plan (07/06/2020 9:23 PM EST): Sleep hygiene. Listen nightly to relaxation tapes and every time she wakes up. If not able to keep a sleep may try melatonin 3-5 mg nightly. Vitamin B12 deficiency 03/29/2020 Assessment & Plan (10/01/2023 4:21 PM EST): Take 1000 mcg vitamin B12 daily to bring the serum level into optimal range: 800-900 pg/ml. Assessment & Plan (02/16/2023 3:07 PM EDT): Take 1000 mcg vitamin B12 daily to bring the serum level into optimal range: 800-900 pg/ml. Assessment & Plan (01/13/2022 4:47 PM EDT): Take 1000 mcg vitamin B12 daily to bring the serum level into optimal range: 800-900 pg/ml. Assessment & Plan (07/27/2021 4:36 PM EST): Take 1000 mcg vitamin B12 daily to bring the serum level into optimal range: 800-900 pg/ml. Assessment & Plan (01/31/2021 4:38 PM EDT): Take 1000 mcg vitamin B12 daily to bring the serum level into optimal range: 800-900 pg/ml. Assessment & Plan (10/15/2020 8:15 AM EST): Take 1000 mcg vitamin B12 daily to bring the serum level into optimal range: 800-900 pg/ml. Assessment & Plan (07/05/2020 4:14 PM EST): Take 1000 mcg vitamin B12 daily to bring the serum level into optimal range: 800-900 pg/ml. Assessment & Plan (03/31/2020 9:44 PM EDT): Take 1000 mcg vitamin B12 daily to bring the serum level into optimal range: 800-900 pg/ml. Low serum ferritin level 03/29/2020 Assessment & Plan (03/06/2023 4:43 PM EDT): Continue iron supplementation in addition to plenty of fresh fruits rich in vitamin C and dark green leafy vegetables. (5-10 servings daily) Assessment & Plan (07/05/2020 4:14 PM EST): Plenty of fresh fruits rich in vitamin C and dark green leafy vegetables in the diet. Assessment & Plan (03/31/2020 9:47 PM EDT): Plenty of fresh fruits rich in vitamin C and dark green leafy vegetables in the diet. Flank pain 08/14/2019 Assessment & Plan (08/14/2019 4:17 PM EST): Use warm packs to both flans Keep well hydrated Get U/A as ordered 08/11/19 Plantar fasciitis, left 03/17/2019 Assessment & Plan (03/22/2019 9:43 PM EDT): Gentle stretching after warm pack or warm shower. Well supportive shoes. I printed for patient sheets with instructions and pictures for exercises. Consider formal PT and brace for nighttime if not better. Long-term use of Plaquenil 03/13/2018 Assessment & Plan (02/25/2025 4:49 PM EDT): Daily sun protection. Close follow-up with tax map technician as scheduled- last appointment in March 2024 was reassuring. Return for regular checkups with labs monitoring safety Assessment & Plan (09/24/2024 4:47 PM EST): Daily sun protection. Close follow-up with tax map technician as scheduled- last appointment in March 2024 was reassuring. Return for regular checkups with labs monitoring safety Assessment & Plan (06/23/2024 4:25 PM EDT): Daily sun protection. Close follow-up with tax map technician as scheduled-next appointment expected in March 2024. Return for regular checkups with labs monitoring safety Assessment & Plan (03/30/2024 7:48 PM EDT): Daily sun protection. Close follow-up with tax map technician as scheduled-next appointment expected in March 2024. Return for regular checkups with labs monitoring safety Assessment & Plan (10/01/2023 4:21 PM EST): Daily sun protection. Close follow-up with tax map technician as scheduled. Return for regular checkups with labs monitoring safety Assessment & Plan (02/16/2023 2:58 PM EDT): Daily sun protection. Close follow-up with tax map technician as scheduled. Return for regular checkups with labs monitoring safety Assessment & Plan (01/13/2022 4:47 PM EDT): Daily sun protection. Close follow-up with tax map technician as scheduled. Return for regular checkups with labs monitoring safety Assessment & Plan (07/27/2021 4:35 PM EST): Daily sun protection. Close follow-up with tax map technician as scheduled. Return for regular checkups with labs monitoring safety Assessment & Plan (01/31/2021 4:38 PM EDT): Daily sun protection. Close follow-up with tax map technician as scheduled. Return for regular checkups with labs monitoring safety Assessment & Plan (10/20/2020 9:46 PM EST): Daily sun protection. Close follow-up with tax map technician as scheduled. Return for regular checkups with labs monitoring safety Assessment & Plan (07/05/2020 4:14 PM EST): Daily sun protection. Close follow-up with tax map technician as scheduled. Return for regular checkups with labs monitoring safety Assessment & Plan (03/29/2020 3:03 PM EDT): Daily sun protection. Close follow-up with tax map technician as scheduled. Return for regular checkups with labs monitoring safety Assessment & Plan (08/14/2019 4:16 PM EST): Daily sun protection. Close follow-up with tax map technician as scheduled. Return for regular checkups with labs monitoring safety Assessment & Plan (03/22/2019 9:44 PM EDT): Daily sun protection. Close follow-up with tax map technician as scheduled. Return for regular checkups with labs monitoring safety Assessment & Plan (10/24/2018 5:03 PM EST): Daily sun protection. Close follow-up with tax map technician as scheduled. Return for regular checkups with labs monitoring safety Dry eyes 03/13/2018 Assessment & Plan (02/25/2025 4:49 PM EDT): Use sunglasses as needed during sun exposure. Follow instructions from tax map technician including using gel prior to night rest. Avoid direct exposure to fans and drafts. Assessment & Plan (01/31/2021 4:37 PM EDT): Use sunglasses as needed during sun exposure. Follow instructions from tax map technician including using gel prior to night rest. Avoid direct exposure to fans and drafts. Assessment & Plan (10/20/2020 9:48 PM EST): Use sunglasses as needed during sun exposure. Follow instructions from tax map technician including using gel prior to night rest. Avoid direct exposure to fans and drafts. Assessment & Plan (03/22/2019 9:44 PM EDT): Use sunglasses as needed during sun exposure. Follow instructions from tax map technician including using gel prior to night rest. Avoid direct exposure to fans and drafts. Assessment & Plan (10/24/2018 4:58 PM EST): Use sunglasses as needed during sun exposure. Follow instructions from tax map technician including using gel prior to night rest. Avoid direct exposure to fans and drafts. Pain of right hip joint 12/10/2017 URI (upper respiratory infection) 09/10/2017 Leukopenia 09/10/2017 Assessment & Plan (02/25/2025 4:49 PM EDT): Chronic-of moderate degree-without significant abnormalities on prior hematologic evaluations. Continue carefully diligent hand hygiene and avoid sick contacts. Educated to call immediately if fever or sudden change in clinical status or go to ER for evaluation. Assessment & Plan (09/24/2024 4:17 PM EST): Chronic-of moderate degree-without significant abnormalities on prior hematologic evaluations. Continue carefully diligent hand hygiene and avoid sick contacts. Educated to call immediately if fever or sudden change in clinical status or go to ER for evaluation. Assessment & Plan (06/23/2024 4:25 PM EDT): Chronic-of moderate degree-without significant abnormalities on prior hematologic evaluations. Continue carefully diligent hand hygiene and avoid sick contacts. Educated to call immediately if fever or sudden change in clinical status or go to ER for evaluation. Assessment & Plan (03/30/2024 7:47 PM EDT): Chronic-of moderate degree-without significant abnormalities on prior hematologic evaluations. Continue carefully diligent hand hygiene and avoid sick contacts. Educated to call immediately if fever or sudden change in clinical status or go to ER for evaluation. Assessment & Plan (10/01/2023 4:21 PM EST): Continue carefully diligent hand hygiene and avoid sick contacts. Educated to call immediately if fever or sudden change in clinical status or go to ER for evaluation. Assessment & Plan (07/27/2021 4:36 PM EST): Continue carefully diligent hand hygiene and avoid sick contacts. Educated to call immediately if fever or sudden change in clinical status or go to ER for evaluation. Assessment & Plan (01/31/2021 4:38 PM EDT): Continue carefully diligent hand hygiene and avoid sick contacts. Educated to call immediately if fever or sudden change in clinical status or go to ER for evaluation. Assessment & Plan (10/15/2020 8:15 AM EST): Continue carefully diligent hand hygiene and avoid sick contacts. Educated to call immediately if fever or sudden change in clinical status or go to ER for evaluation. Assessment & Plan (07/06/2020 9:21 PM EST): Continue carefully diligent hand hygiene and avoid sick contacts. Educated to call immediately if fever or sudden change in clinical status or go to ER for evaluation. Get yearly influenza vaccine MINERVA. Assessment & Plan (03/29/2020 3:03 PM EDT): Continue carefully diligent hand hygiene and avoid sick contacts. Educated to call immediately if fever or sudden change in clinical status or go to ER for evaluation. Assessment & Plan (03/22/2019 9:42 PM EDT): Continue carefully diligent hand hygiene and avoid sick contacts. Educated to call immediately if fever or sudden change in clinical status or go to ER for evaluation. Assessment & Plan (10/24/2018 5:05 PM EST): Continue carefully diligent hand hygiene and avoid sick contacts. Educated to call immediately if fever or sudden change in clinical status or go to ER for evaluation. Resolved Problems Problem Noted Date Diagnosed Date Resolved Date Advice given about COVID-19 virus by telephone 10/15/2020 02/05/2022 Assessment & Plan (10/15/2020 8:20 AM EST): I reviewed with Deandra benefits of COVID-19 vaccination and encouraged her to get it when she is due without need for adjusting her medications. She did not have any side effects vaccination in the past. There is no documented superiority of Pfizer over Moderna vaccine or vice versa. Encounters Date Type Department Care Team Description 02/25/2025 4:00 PM EDT Office Visit [facility] Rheumatology [address] [place], [place] [id number] Vilma Garcia MD Systemic lupus erythematosus with other organ involvement, unspecified SLE type (Primary Dx); Long-term use of Plaquenil; Raynaud's disease without gangrene; Family history of rheumatoid arthritis; Other neutropenia; Dry eyes; Status post carpal tunnel release from Last 3 Months Immunizations Immunization Administration Dates Next Due COVID-19 (Pre-06/18) Moderna Vaccine, mRNA, PF 0 11/09/2020 Influenza Quadrivalent Preservative Free IM 08/2020,07/05/2020 Tdap 09/10/2017 Social History Tobacco Use Types Packs/Day Years Used Date Smoking Tobacco: Never Smokeless Tobacco: Never Tobacco Cessation:Counseling Given: Not Answered Alcohol Use Standard Drinks/Week Comments Yes 0 (1 standard drink = 0.6 oz pur e alcohol) Socially Education Answer Date Recorded Are you interested in more education? Not on rosa e 12/22/2022 Are you concerned about learning? Not on file 12/22/2022 No 12/22/2022 No 12/22/2022 Digital Access Answer Date Recorded No 01/20/2023 No 01/20/2023 Reliable internet access at home? Not on file 01/20/2023 Device with a working camera? Not on file Comments Unknown Sex and Gender Information Value Date Recorded Sex Assigned at Not on file Legal Sex Female 10:31 PM EDT Gender Identity Not on file Sexual Orientation Not on file Last Filed Vital Signs Vital Sign Reading Time Taken Comments Blood Pressure 112/80 02/25/2025 4:04 PM EDT Pulse 68 02/25/2025 4:04 PM EDT Temperature - - Respiratory Rate 16 07/27/2021 3:59 PM EST Oxygen Saturation 99% 02/25/2025 4:04 PM EDT Inhaled Oxygen Concentration - - Weight 68 kg (150 lb) 02/25/2025 4:04 PM EDT Height 160 cm (5' 3 ) 02/25/2025 4:04 PM EDT Body Mass Index 26.57 02/25/2025 4:04 PM EDT Plan of Treatment Upcoming Encounters Date Type Department Care Team (Late st Contact Info) Description 06/29/2025 4:30 PM EST Office Visit [facility] Rheumatology [address] [place] [address] Vilma Garcia MD [address] [facility], [address] [place] [address] Health Maintenance Due Date Last Done Comments LIPID PANEL 1973 DEPRESSION SCREENING 1985 HEPATITIS C SCREENING 1991 HIV ONE-TIME SCREENING (18-65 YEARS) 1991 PNEUMOCOCCAL VACCINES (50+ years) (1 of 2 - PCV) 02/14/1992 ZOSTER VACCINES (1 of 2) 02/14/1992 SCREENING FOR DIABETES 02/14/2008 MAMMOGRAM 2013 COLOGUARD 2018 COLONOSCOPY 2018 COLORECTAL CANCER SCREENING 2018 FIT TEST 2018 FOBT 2018 SIGMOIDOSCOPY 2018 VIRTUAL COLONOSCOPY 2018 INFLUENZA VACCINE (#1) 2025 , 06/06/2023, 07/27/2021, Additional history exists COVID-19 VACCINE ( - 2024- season) 2025 12/09/2020, 11/09/2020 Adult Td,Tdap Booster 09/10/2027 09/10/2017 SMOKING STATUS SCREENING (Once After 26 Yrs) Completed 02/25/2025 HEPATITIS A VACCINES Aged Out No long er eligible based on patient's age to complete this topic HIB VACCINES Aged Out No longer eligi ble based on patient's age to complete this topic MENINGOCOCCAL VACCINES (ACWY) Aged Out No longer eligible based on patient's age to complete this topic MENINGOCOCCAL VACCINES (B) Aged Out N o longer eligible based on patient's age to complete this topic Medical Devices Not on file Insurance [facility] CHO[facility] CHOICE [facility] CHOICE [facility] CHOICE [facility] Care Teams Feather Mixer Relationship Specialty Start Date End Date Deisy Pardo MD [address] [place] [address] PCP - General 06/14/17 Additional Source Comments The information contained in this document represents components of the legal health record. It is not the complete legal health record.[facility]
== END 2025-05-19 16:05 | disposition home or self-care (01) ==
LOC: HO.MAMMO 16:04
PROVIDERS: PCP Internal Medicine; Visit Provider Internal Medicine
DX: Z12.31 Encounter for screening mammogram for malignant neoplasm of breast (principal)
CPT/HCPCS: 77063; 77067

== ENCOUNTER → 2025-05-19 16:30 | Outpatient (BNV) | payer OTHER, SELFPAY | PROVIDERS: PCP Internal Medicine; Visit Provider Radiology Body Imaging | DX: Z12.31 Encounter for screening mammogram for malignant neoplasm of breast (principal) | CPT/HCPCS: 77063; 77067 ==

== ENCOUNTER 2025-06-22 15:54 | Outpatient (REF) | payer OTHER, SELFPAY ==
[2025-06-22 16:53] LABS: MANUAL DIFF FLAG NO
[2025-06-22 17:24] LABS: Hematocrit 38.8 % (37.0-47.0); Hemoglobin 12.6 g/dl (12.0-16.0); Imm Gran Abs Auto 0.01 X10*3/uL (0.00-0.03); Imm Gran Pct Auto 0.3 % (0.0-0.4); Lymphocytes Absolute Auto 1.0 X10*3/uL (1.2-4.9); Mean Corpuscular HGB Conc 32.5 g/dl (31.0-35.0); Mean Corpuscular Hemoglobin 29.2 pg (27.0-33.0); Mean Corpuscular Volume 89.8 fL (80.0-98.0); NRBC Abs Auto 0.000 X10*3/uL (0.0-0.012); NRBC Pct Auto 0.0 /100WBC (0.0-0.2); Platelet Count 189 X10*3/uL (160-400); Red Blood Count 4.32 X10*6/uL (4.20-5.50); White Blood Count 3.2 X10*3/uL (4.8-10.8)
[2025-06-22 17:48] LABS: Alanine Aminotransferase 13 U/L (0-31); Albumin Level 4.5 g/dL (3.5-5.0); Alkaline Phosphatase 61 U/L (39-117); Anion Gap 13 (12-20); Aspartate Amino Transferase 25 U/L (5-31); Blood Urea Nitrogen 17 mg/dL (9-16); Calcium 9.6 mg/dL (8.4-10.2); Carbon Dioxide 25 mmol/L (22-29); Chloride 108 mmol/L (96-108); Estimated Glomerular Filt Rate > 60; Potassium 3.9 mmol/L (3.3-5.1); Sodium 142 mmol/L (135-145); Total Protein 7.7 g/dL (6.5-8.0)
[2025-06-22 19:39] LABS: Total Protein Urine Random < 7 mg/dL (<12)
[2025-06-25 10:13] LABS: DNAds, Crithidia Antibody Negative (Negative)
== END 2025-06-22 15:55 | disposition home or self-care (01) ==
LOC: HO.LABR 15:54
PROVIDERS: Internal Medicine Rheumatology; PCP Internal Medicine; Visit Provider Internal Medicine
DX: Z00.00 Encounter for general adult medical examination without abnormal findings (principal); Z23 Encounter for immunization; M32.19 Other organ or system involvement in systemic lupus erythematosus; M32.8 Other forms of systemic lupus erythematosus; K21.9 Gastro-esophageal reflux disease without esophagitis; R11.10 Vomiting, unspecified; Z79.899 Other long term (current) drug therapy
CPT/HCPCS: 36415; 80053; 84156; 85025; 85652; 86140; 86160; 86255; 90471; 90656; 96127

== ENCOUNTER 2025-06-22 15:54 | Outpatient (AMB) | payer OTHER, SELFPAY ==
[2025-06-22 16:01] VITALS: BP 110/80; PULSE 67; O2SAT 99; BMI 25.4
--- NOTE | 2025-06-22 16:01 | A.OFFPC_ITS ---
Vital Signs 06/22/25 16:01 Height 5 ft 3 in Weight 143 lb 2 oz BMI 25.4 BP 110/80 Blood Pressure Location Lt brachial Position Sitting Pulse 67 Pulse Source Pulse Oximeter Pulse Oximetry (%) 99 Oxygen Delivery Method Room Air Intake Visit Reasons: annual exam Wastewater Analyst Lab Analyst Required: No Accompanied by: Self / Same As Patient Allergies No Known Allergies Allergy (Verified 06/22/25 16:12) Medication List - Last Reconciled 06/22/25 by Deisy Adrian MD albuterol sulfate 90 mcg/actuation 2 inhalations inhalation Q6H PRN 30 days cyanocobalamin (vitamin B-12) 1,000 mcg PO DAILY ferrous sulfate 325 mg PO BID hydroxychloroquine (Plaquenil) 200 mg PO BID Held on 08/17/21. Instructions: Resume on 08/22/21. Tobacco use date assessed: 06/22/25 Dental Screening Dental Screen Date: 06/22/25 Did you have a dental visit in the last 12 months?: No Did you have a dental problem in the last 6 months where you did not have access to dental care?: No Was dental information given to patient?: Patient has dentist HPI HPI Comments History of Present Illness Details The patient is a 50-year-old female presenting for an annual physical examination. Her medical history is significant for systemic lupus erythematosus, which is reportedly well-controlled with hydroxychloroquine 200 mg twice daily and followed by a relationship advisor every three months. Surgical history includes a hysterectomy, a right carpal tunnel release, and a tubal ligation. Her last colonoscopy was five years ago in 2019 which showed internal hemorrhoids, with a recommendation for a repeat procedure in five years due to a family history in a second-degree relative. The patient reports new-onset headaches located between her eyes. She also de scribes experiencing morning nausea regardless of what or when she eats, which is sometimes relieved by vomiting. She reports occasional bloating and flatulence. Family history is notable for a mother who had rheumatoid arthritis, stroke, and hypertension. A sister has a history of cervical cancer, rheumatoid arthritis, and lupus. The patient was evaluated for rheumatoid arthritis in the past due to hand symptoms, but it was ruled out, and she was diagnosed with carpal tunnel syndrome instead. Socially, she has never smoked and consumes alcohol occasionally on weekends. A PHQ-9 for depression was scored at 3, which she attributes to daily life stressors. [facility] Medical History Dyspnea Allergies Pneumonitis Abnormal uterine bleeding Uterine fibroid Vaginal discharge COVID-19 virus infection Cough Vaginal itching Bacteremia due to Gram-negative bacteria Acute bacterial pyelonephritis [place] Systemic lupus erythematosus Surgical History History of carpal tunnel release History of hysterectomy (~12/2023) History of colonoscopy History of tubal ligation Family History Mother Rheumatoid arthritis Stroke Hypertension Sister Rheumatoid arthritis Cervical cancer Paternal Grandfather Colon cancer Maternal Grandfather Colon cancer Prostate cancer Maternal Aunt Colon cancer Father No problems noted. Social History Household Members Other:: granchild Housing: House Are you a primary infant caregiver to a significant other at home: No Do you presently have visiting nurse or other home services: No Alcohol intake: current Alcohol intake frequency: a few times a month Alcohol type: beer, wine and hard liquor Patient Tobacco Use Status: Never used Tobacco e-Cigarette/Vaping Use: Never Used Second Hand Smoke Exposure: No service: No Current occupational status: employed Current occupational exposures/hazards: No Sexual orientation: Straight/Heterosexual Gender identity: Female Cognitive needs: No Hearing needs: No Vision needs: Yes Female Reproductive History Menstrual Age of Menarche: 13 Questionnaire PHQ-9 Over the last 2 weeks, how often have you been bothered by any of the following problems? 1. Little interest or pleasure in doing things: not at all 2. Feeling down, depressed, or hopeless: not at all 3. Trouble falling or staying asleep, or sleeping too much: nearly every day 4. Feeling tired or having little energy: not at all 5. Poor appetite or overeating: not at all 6. Feeling bad about yourself - or that you are a failure or have let yourself or your family down: not at all 7. Trouble concentrating on things, such as reading the newspaper or watching television: not at all 8. Moving or speaking so slowly that other people could have noticed. Or the opposite - being so fidgety or restless that you have been moving around a lot more than usual: not at all 9. Thoughts that you would be better off or of hurting yourself in some way: not at all Total score: 3 Depression Screening Interpretation: Negative Depression Screening Done: Yes 64553 - PHQ-9 Billing: Yes Source: Developed by Drs. Sincere Malik, Carmina Finch, Zeke Wheeler and colleagues, with an educational alexia from [employer]. Thrive Questionnaire Date Thrive assessed: 06/22/25 I am a: Patient What is your living situation today?: I have a steady place to live Within the past 12 months, did the food you bought not last and you didn't have the money to get more?: Never true Within the past 12 months, did you worry whether your food would run out before you got money to buy more?: Never true Do you have trouble paying for medicines?: No Do you have trouble getting transportation to medical appointments?: No Do you have trouble paying your heating and electricity bill?: No Do you have trouble taking care of your child, family member or friend?: No Do you have trouble with day-to-day activities such as bathing, preparing meals, shopping, managing finances, etc.?: No Are you currently unemployed and looking for a job?: No Are you interested in more education?: No Please select the resources that you would like help with: None Currently or been in a relationship where the following occur: No concerns reported THRIVE Score: 0 AUDIT C Alcohol Use Questionnaire (AUDIT-C) 1. How often do you have a drink containing alcohol?: 2-3 times a week 2. How many drinks containing alcohol do you have on a typical day when you are drinking?: 1 or 2 3. How often do you have six or more drinks on one occasion?: Never Total Score: 3 ARLINE-7 AMB Questionnaire ARLINE-7 Date ARLINE - 7 assessed: 06/22/25 Feeling nervous, anxious, or on edge: 0 = Not at all Not being able to stop or control worryin = Not at all Worrying too much about different things: 0 = Not at all Trouble relaxin = Not at all Being so restless that it is hard to sit still: 0 = Not at all Becoming easily annoyed or irritable: 0 = Not at all Feeling afraid as if something awful might happen: 0 = Not at all Total ARLINE-7 score (0-4 normal; 5-9 mild; 10-14 moderate; 15-21 severe): 0 Source: Developed by Drs. Sincere Malik, Carmina Finch, Zeke Wheeler and colleagues, with an educational alexia from [employer]. ARLINE-7 Assessment Billing ARLINE-7 Assessment Tool: ARLINE-7 Assessment 63186 Review of Systems Const All systems reviewed & are unremarkable except as noted in HPI and below Card Denies chest pain at rest, Denies chest pain with activity, Denies edema, Denies irregular heart rhythm, Denies claudication, Denies dyspnea, Denies dyspnea on exertion, Denies orthopnea, Denies paroxysmal nocturnal dyspnea and Denies slow heart rate Resp Denies cough, Denies dyspnea and Denies dyspnea on exertion Physical exam (Primary Care) Vital Signs: Last Vital Signs Pulse 67 06/22/25 16:01 BP 110/80 06/22/25 16:01 Pulse Ox 99 06/22/25 16:01 Oxygen Delivery Method Room Air 06/22/25 16:01 BMI result Body Mass Index 25.4 Tobacco/Smoking Status: Tobacco use Status Tobacco use date assessed 06/22/25 06/22/25 16:07 Patient Tobacco Use Status Never used Tobacco 06/22/25 16:07 e-Cigarette/Vaping Use Never Used 06/22/25 16:07 PHQ-9: PHQ-9 Score PHQ-9: Total score 3 06/22/25 16:29 Depression Screening Interpretation: Negative Thrive Assessment: Date of Thrive Assessment Date Thrive assessed 06/22/25 06/22/25 16:07 Currently or been in a relationship where the following occur: No concerns reported HENMT Head: Yes normal to inspection, Yes normocephalic and Yes atraumatic Ears: external ears normal Eyes General: appearance normal, both eyes and all related structures Eyelids: Yes eyelids normal Conjunctivae: conjunctivae normal Neck Neck: Yes normal visual inspection and Yes supple Resp Effort & Inspection: normal respiratory effort Auscultation: clear to auscultation bilaterally Cardio Jugular venous distension: no JVD Rate: regular rate Rhythm: regular rhythm Heart sounds: S1 normal heart sound present and S2 normal heart sound present GI Inspection: Yes normal to inspection Palpation (GI): Soft to palpation and nontender Auscultation: normal bowel sounds Skin General skin exam: no rashes or lesions noted Neuro General: no focal motor deficits Extrem General: Yes full ROM Psych Appearance: grossly normal Office Procedures Flu Questionnaire Does the patient have a severe egg allergy?: No Does the patient have severe life threatening allergies?: No Does the patient have a fever or illness today?: No Has the patient ever had Guillain-Houston Syndrome?: No Has the patient ever had any past reaction to a flu shot?: No Immunizations Fluarix [id number] (PF) 45 mcg (15 mcg x 3)/0.5 mL IM syringe Performing Provider: Deisy Adrian MD [facility] Administered by: Shireen Esparza CMA on 06/22/25 16:28 Dose Route Admin Location Dispensed Lot Number Expiration Date NDC Adult And Pediatric Neurologist 0.5 mL IM Left Deltoid 0.5 mL [id number] 02/23/26 [id number] [employer] VIS Given Date VIS Provided VIS Publication Date 06/22/25 Single Vaccine 24 Eligibility Eligibility Date Funding Source Not [facility] Eligible 06/22/25 Private Coding Level of Care Code Est Pt Level 3 (58649) Est Pt Prev Care 40-64y(85469) Diagnoses Physical exam Z00.00 Other forms of systemic lupus erythematosus, unspecified organ involvement status M32.8 Systemic lupus erythematosus type: other Systemic lupus erythematosus organ involvement: unspecified Chronic GERD K21.9 Intractable vomiting R11.10 Additional Codes ARLINE-7 Assessment Billing - ARLINE-7 Assessment Tool: ARLINE-7 Assessment 37402 ([id number]) PHQ-9 - 86781 - PHQ-9 Billing: Yes ([id number]) Time Spent (min) 32 Assessment & Plan Assessment & Plan (1) Physical exam: Code(s): Z00.00 - Encounter for general adult medical examination without abnormal findings Category: Medical (2) Systemic lupus erythematosus: Code(s): M32.9 - Systemic lupus erythematosus, unspecified Category: Medical Qualifiers: Systemic lupus erythematosus type: other Systemic lupus erythematosus organ involvement: unspecified Qualified Code(s): M32.8 - Other forms of systemic lupus erythematosus (3) Chronic GERD: Code(s): K21.9 - Gastro-esophageal reflux disease without esophagitis Category: Medical (4) Intractable vomiting: Code(s): R11.10 - Vomiting, unspecified Category: Medical Plan Plan 1. Annual Physical Examination Further evaluation will include blood work to check cholesterol levels. An influenza vaccine will be administered during this visit. 2. Nausea And Headache To evaluate the patient's new-onset morning nausea, vomiting, and headaches, a referral will be placed to gastroenterology. An upper GI study and blood work will be ordered. 3. Screening For Malignant Neoplasm Of Colon The patient is due for a repeat colonoscopy this year, five years after her last procedure, as recommended due to her family history. A referral will be sent for the procedure. 4. Systemic Lupus Erythematosus The patient's lupus is stable and well-controlled. She will continue her current medication, hydroxychloroquine 200 mg twice daily, and maintain her regularly scheduled follow-ups with rheumatology every three months. Orders: Orders Lipid Panel Today Z00.00 - Encounter for general adult medical examination without abnormal findings [place] upper GI series Today K21.9 - Gastro-esophageal reflux disease without esophagitis Comprehensive [place]. Panel Fast Today Z00.00 - Encounter for general adult medical examination without abnormal findings Influenza [id number] Immunization Today Z23 - Encounter for immunization Referrals Gastroenterology Referral R11.10 - Vomiting, unspecified
--- OUTSIDE RECORDS SUMMARY | 2025-06-22 18:54 | XMS_ITS | Encounter Summary ---
Author Organization [facility] Address [address] [place] [address] [place] [phone] Phone Care Team Providers Care Bulk Plant Supervisor Name Role Phone Deisy Pardo MD Primary Care Provid er Reason for Visit * Reason Onset Date Comments Appointment 06/22/2025 Encounter Details Date Type Department Care Team (Late st Contact Info) Description 06/22/2025 Telephone [facility] [address] [place] [address] Maria Elena [email or web address] Appointment Social History Tobacco Use Types Packs/Day Years Used Date Smoking Tobacco: Never Smokeless Tobacco: Never Alcohol Use Standard Drinks/Week Comments Yes 0 [...] on file Sexual Orientation Not on file documented as of this encounter Progress Notes * Maria Elena Frias - 06/22/2025 3:45 PM EDT Patient called in looking to see if the appointment on 06/29 can be a virtual visit due to a transportation problem. Please contact and advise. Central Support Button Inspector (Please do not reply to this user; this inbox is not monitored.) Thank you. documented in this encounter Plan of Treatment Upcoming Encounters Date Type Department Care Team (Late st Contact Info) Description 06/29/2025 4:30 PM EST Office Visit [facility] Rheumatology [address] [place] [address] Vilma Garcia MD [address] [facility], [address] [place] [address] [email or web address] documented as of this encounter Visit Diagnoses Not on filedocumented in this encounter Care Teams Bulk Plant Supervisor Relationship Specialty Start Date End Date Deisy Pardo MD [address] [place] [address] PCP - General 06/14/17 documented as of this encounter Additional Source Comments The information contained in this document represents components of the legal health record. It is not the complete legal health record.[facility]
--- OUTSIDE RECORDS SUMMARY | 2025-06-22 18:54 | XMS_ITS | Clinical Summary ---
Author Organization [facility] Address [address] [place] [phone] Phone Care Team Providers Care Wrapper Stemmer Hand Name Role Phone Deisy Pardo MD Primary Care Provid er Allergies No known active allergies Medications cyanocobalamin, vitamin B-12, 1000 MCG tablet Take 1,000 mcg by mouth daily. Active ferrous sulfate 325 mg (65 mg kiana iron) tabletIndications :Low serum ferritin level TAKE 1 TABLET BY MOUTH TWICE A DAY 60 tablet 3 Active cetirizine (ZYRTEC) 10 MG tablet Take 1 tablet by mouth every morning. 3 Active albuterol 90 mcg/actuation inhaler Inhale 2 puffs into the lungs every 6 (six) hours as needed. 4 Active amoxicillin (AMOXIL) 500 MG capsuleIndication s:Systemic lupus erythematosus with other organ involvement, unspecified SLE type,Other neutropenia Take 4 capsules (2,000 mg total) by mouth as directed. 2000 mg 1 hour prior to dental procedures 4 capsule 1 5 Active hydroxychloroquin e (PLAQUENIL) 200 mg tabletIndications :Systemic lupus erythematosus with other organ involvement, unspecified SLE type TAKE 1 TABLET BY MOUTH TWICE A DAY WITH FOOD OR MILK 180 tablet 5 Active Active Problems Problem Noted Date Diagnosed Date [...] EST): Documented by EMG/NCS from 07/03/2024 at [facility], L>R however her symptoms are more prominent on the right side therefore she is scheduled for R CTS release surgery on Sunday-09/29/[address] Gama at [facility] Joint protection, energy conservation techniques reviewed and [...] EDT): Daily sun protection. Close follow-up with graphic design intern as scheduled- last appointment in March 2024 was reassuring. Return for regular checkups with labs monitoring safety Assessment & Plan (09/24/2024 4:47 PM EST): Daily sun protection. Close follow-up with graphic design intern as scheduled- last appointment in March 2024 was reassuring. Return for regular checkups with labs monitoring safety Assessment & Plan (06/23/2024 4:25 PM EDT): Daily sun protection. Close follow-up with graphic design intern as scheduled-next appointment expected in March 2024. Return for regular checkups with labs monitoring safety Assessment & Plan (03/30/2024 7:48 PM EDT): Daily sun protection. Close follow-up with graphic design intern as scheduled-next appointment expected in March 2024. Return for regular checkups with labs monitoring safety Assessment & Plan (10/01/2023 4:21 PM EST): Daily sun protection. Close follow-up with graphic design intern as scheduled. Return for regular checkups with labs monitoring safety Assessment & Plan (02/16/2023 2:58 PM EDT): Daily sun protection. Close follow-up with graphic design intern as scheduled. Return for regular checkups with labs monitoring safety Assessment & Plan (01/13/2022 4:47 PM EDT): Daily sun protection. Close follow-up with graphic design intern as scheduled. Return for regular checkups with labs monitoring safety Assessment & Plan (07/27/2021 4:35 PM EST): Daily sun protection. Close follow-up with graphic design intern as scheduled. Return for regular checkups with labs monitoring safety Assessment & Plan (01/31/2021 4:38 PM EDT): Daily sun protection. Close follow-up with graphic design intern as scheduled. Return for regular checkups with labs monitoring safety Assessment & Plan (10/20/2020 9:46 PM EST): Daily sun protection. Close follow-up with graphic design intern as scheduled. Return for regular checkups with labs monitoring safety Assessment & Plan (07/05/2020 4:14 PM EST): Daily sun protection. Close follow-up with graphic design intern as scheduled. Return for regular checkups with labs monitoring safety Assessment & Plan (03/29/2020 3:03 PM EDT): Daily sun protection. Close follow-up with graphic design intern as scheduled. Return for regular checkups with labs monitoring safety Assessment & Plan (08/14/2019 4:16 PM EST): Daily sun protection. Close follow-up with graphic design intern as scheduled. Return for regular checkups with labs monitoring safety Assessment & Plan (03/22/2019 9:44 PM EDT): Daily sun protection. Close follow-up with graphic design intern as scheduled. Return for regular checkups with labs monitoring safety Assessment & Plan (10/24/2018 5:03 PM EST): Daily sun protection. Close follow-up with graphic design intern as scheduled. Return for regular checkups with labs monitoring safety Dry eyes 03/13/2018 Assessment & Plan (02/25/2025 4:49 PM EDT): Use sunglasses as needed during sun exposure. Follow instructions from graphic design intern including using gel prior to night rest. Avoid direct exposure to fans and drafts. Assessment & Plan (01/31/2021 4:37 PM EDT): Use sunglasses as needed during sun exposure. Follow instructions from graphic design intern including using gel prior to night rest. Avoid direct exposure to fans and drafts. Assessment & Plan (10/20/2020 9:48 PM EST): Use sunglasses as needed during sun exposure. Follow instructions from graphic design intern including using gel prior to night rest. Avoid direct exposure to fans and drafts. Assessment & Plan (03/22/2019 9:44 PM EDT): Use sunglasses as needed during sun exposure. Follow instructions from graphic design intern including using gel prior to night rest. Avoid direct exposure to fans and drafts. Assessment & Plan (10/24/2018 4:58 PM EST): Use sunglasses as needed during sun exposure. Follow instructions from graphic design intern including using gel prior to night rest. [...] Encounters Date Type Department Care Team Description 06/22/2025 Telephone [facility] [address] [place] [address] Maria Elena Frias Appointment from Last 3 Months Immunizations Immunization Administration [...] Description 06/29/2025 4:30 PM EST Office Visit [facility] Rheumatology [address] [place] [address] Vilma Garcia MD [address] [facility], [address] [place] [address] [email or web address] Maintenance Due Date Last Done Comments LIPID PANEL 1973 DEPRESSION SCREENING 1985 HEPATITIS C SCREENING 1991 HIV ONE-TIME SCREENING (18-65 YEARS) 1991 PNEUMOCOCCAL VACCINES (50+ years) (1 of 2 - PCV) 02/14/1992 ZOSTER VACCINES (1 of 2) 02/14/1992 SCREENING FOR DIABETES 02/14/2008 MAMMOGRAM 2013 COLOGUARD 2018 COLONOSCOPY 2018 COLORECTAL CANCER SCREENING 2018 FIT TEST 2018 FOBT 2018 SIGMOIDOSCOPY 2018 VIRTUAL COLONOSCOPY 2018 RSV VACCINE (1 - Risk 50-74 years 1-dose series) 2023 INFLUENZA VACCINE (#1) 2025 , 06/06/2023, 07/27/2021, Additional history exists COVID-19 VACCINE ( - season) 2025 12/09/2020, 11/09/2020 Adult Td,Tdap Booster [...] topic Medical Devices Not on file Insurance [facility] CHO[facility] CHO[facility] Care Teams Wrapper Stemmer Hand Relationship Specialty Start Date End Date Deisy Pardo MD [address] [place] [address] PCP - General 06/14/17 Additional Source Comments The information contained in this document represents components of the legal health record. It is not the complete legal health record.[facility]
== END 2025-06-22 16:29 | disposition home or self-care (01) ==
LOC: HO.HMCH 15:55
PROVIDERS: PCP Internal Medicine; Visit Provider Internal Medicine
DX: Z00.00 Encounter for general adult medical examination without abnormal findings (principal); M32.8 Other forms of systemic lupus erythematosus; K21.9 Gastro-esophageal reflux disease without esophagitis; R11.10 Vomiting, unspecified; Z23 Encounter for immunization

== ENCOUNTER 2025-06-26 06:30 | Outpatient (REF) | payer OTHER, SELFPAY ==
--- OUTSIDE RECORDS SUMMARY | 2025-06-26 06:32 | XMS_ITS | Clinical Summary ---
Author Organization [facility] Address [address] [place] [phone] Phone Care Team Providers Care Certified Phlebotomy Technician Name Role Phone Deisy Pardo MD Primary Care Provid er Allergies No known active allergies Medications cyanocobalamin, vitamin B-12, 1000 MCG tablet Take 1,000 mcg by mouth daily. Active ferrous sulfate 325 mg (65 mg bad river band iron) tabletIndications :Low serum ferritin level TAKE [...] EST): [place]ed [place] [facility] however her symptoms are more prominent on the right side therefore she is scheduled for R CTS release surgery on Sunday-09/29/[address] Gama [place] [facility] Joint protection, energy conservation techniques reviewed and [...] EDT): Daily sun protection. Close follow-up with ict support engineer as scheduled- last appointment in March 2024 was reassuring. Return for regular checkups with labs monitoring safety Assessment & Plan (09/24/2024 4:47 PM EST): Daily sun protection. Close follow-up with ict support engineer as scheduled- last appointment in March 2024 was reassuring. Return for regular checkups with labs monitoring safety Assessment & Plan (06/23/2024 4:25 PM EDT): Daily sun protection. Close follow-up with ict support engineer as scheduled-next appointment expected in March 2024. Return for regular checkups with labs monitoring safety Assessment & Plan (03/30/2024 7:48 PM EDT): Daily sun protection. Close follow-up with ict support engineer as scheduled-next appointment expected in March 2024. Return for regular checkups with labs monitoring safety Assessment & Plan (10/01/2023 4:21 PM EST): Daily sun protection. Close follow-up with ict support engineer as scheduled. Return for regular checkups with labs monitoring safety Assessment & Plan (02/16/2023 2:58 PM EDT): Daily sun protection. Close follow-up with ict support engineer as scheduled. Return for regular checkups with labs monitoring safety Assessment & Plan (01/13/2022 4:47 PM EDT): Daily sun protection. Close follow-up with ict support engineer as scheduled. Return for regular checkups with labs monitoring safety Assessment & Plan (07/27/2021 4:35 PM EST): Daily sun protection. Close follow-up with ict support engineer as scheduled. Return for regular checkups with labs monitoring safety Assessment & Plan (01/31/2021 4:38 PM EDT): Daily sun protection. Close follow-up with ict support engineer as scheduled. Return for regular checkups with labs monitoring safety Assessment & Plan (10/20/2020 9:46 PM EST): Daily sun protection. Close follow-up with ict support engineer as scheduled. Return for regular checkups with labs monitoring safety Assessment & Plan (07/05/2020 4:14 PM EST): Daily sun protection. Close follow-up with ict support engineer as scheduled. Return for regular checkups with labs monitoring safety Assessment & Plan (03/29/2020 3:03 PM EDT): Daily sun protection. Close follow-up with ict support engineer as scheduled. Return for regular checkups with labs monitoring safety Assessment & Plan (08/14/2019 4:16 PM EST): Daily sun protection. Close follow-up with ict support engineer as scheduled. Return for regular checkups with labs monitoring safety Assessment & Plan (03/22/2019 9:44 PM EDT): Daily sun protection. Close follow-up with ict support engineer as scheduled. Return for regular checkups with labs monitoring safety Assessment & Plan (10/24/2018 5:03 PM EST): Daily sun protection. Close follow-up with ict support engineer as scheduled. Return for regular checkups with labs monitoring safety Dry eyes 03/13/2018 Assessment & Plan (02/25/2025 4:49 PM EDT): Use sunglasses as needed during sun exposure. Follow instructions from ict support engineer including using gel prior to night rest. Avoid direct exposure to fans and drafts. Assessment & Plan (01/31/2021 4:37 PM EDT): Use sunglasses as needed during sun exposure. Follow instructions from ict support engineer including using gel prior to night rest. Avoid direct exposure to fans and drafts. Assessment & Plan (10/20/2020 9:48 PM EST): Use sunglasses as needed during sun exposure. Follow instructions from ict support engineer including using gel prior to night rest. Avoid direct exposure to fans and drafts. Assessment & Plan (03/22/2019 9:44 PM EDT): Use sunglasses as needed during sun exposure. Follow instructions from ict support engineer including using gel prior to night rest. Avoid direct exposure to fans and drafts. Assessment & Plan (10/24/2018 4:58 PM EST): Use sunglasses as needed during sun exposure. Follow instructions from ict support engineer including using gel prior to night rest. [...] Encounters Date Type Department Care Team Description 06/23/2025 Orders Only [facility] Rheumatology [address] [place] [address] Nelli Gray MA Systemic lupus erythematosus with other organ involvement, unspecified SLE type; Long-term use of Plaquenil 06/22/2025 Telephone [facility] [address] [place], [place] [id number] Maria Elena Frias Appointment from Last 3 Months Immunizations Immunization Administration Dates Next Due COVID-19 (Pre-06/18) Moderna Vaccine, mRNA, PF 0 11/09/2020 Influenza Quadrivalent Preservative Free IM 1208/2020,07/05/2020 Tdap 09/10/2017 Social History Tobacco Use Types [...] Contact Info) Description 06/29/2025 4:30 PM EST Telemedicine [facility] Rheumatology [address] [place] [address] Vilma Garcia MD [address], [address] [place] [address] [email or web address] Due Date Last Done Comments [...] this topic Medical Devices Not on file Procedures Procedure Name Priority Date/Time Associated Diagnosis Comments COMPREHENSIVE METABOLIC PANEL Routine 06/22/2025 1:00 PM EDT Systemic lupus erythematosus with other organ involvement, unspecified SLE type Long-term use of Plaquenil C-REACTIVE PROTEIN Routine 06/22/2025 12 :59 PM EDT Systemic lupus erythematosus with other organ involvement, unspecified SLE type Long-term use of Plaquenil SEDIMENTATION RATE (ESR) Routine 025 12:59 PM EDT Systemic lupus erythematosus with other organ involvement, unspecified SLE type Long-term use of Plaquenil CBC AND DIFFERENTIAL Routine 06/22/2025 12:59 PM EDT Systemic lupus erythematosus with other organ involvement, unspecified SLE type Long-term use of Plaquenil from Last 3 Months Results * Comprehensive metabolic panel (06/22/2025 1:00 PM EDT) Blood Vilma Garcia MD LAB BLOOD ORDERABLES Fin al Result Performing Organization Address [facility] de Phone Number EXTERNAL NON-INTERFACED REF LAB * C-Reactive Protein (06/22/2025 12:59 PM EDT) Blood Vilma Garcia MD LAB BLOOD ORDERABLES Fin al Result Performing Organization Address [facility] de Phone Number EXTERNAL NON-INTERFACED REF LAB * Sedimentation rate (ESR) (06/22/2025 12:59 PM EDT) Blood Vilma Garcia MD LAB BLOOD ORDERABLES Fin al Result Performing Organization Address [facility] de Phone Number EXTERNAL NON-INTERFACED REF LAB * CBC and differential (06/22/2025 12:59 PM EDT) Blood us Vilma Garcia MD LAB BLOOD ORDERABLES Fin al Result EXTERNAL NON-INTERFACED REF LAB from Last [address] [facility] CHOICE [facility] Care Teams Certified Phlebotomy Technician Relationship Specialty Start Date End Date Deisy Pardo MD [address] [place] [address] PCP - General 06/14/17 Additional Source Comments The information contained in this document represents components of the legal health record. It is not the complete legal health record.[facility]
--- OUTSIDE RECORDS SUMMARY | 2025-06-26 06:32 | XMS_ITS | Encounter Summary ---
Author Organization [facility] Address [address] [facility] [address] [place] [phone] Phone Care Team Providers Care Web Programmer Name Role Phone Deisy Pardo MD Primary Care Provid er Encounter Details Date Type Department Care Team (Late st Contact Info) Description 06/23/2025 Orders Only [facility] Rheumatology [address] [place] [address] Nelli Gray MA [address] [place] [address] [email or web address] Systemic lupus erythematosus with other organ involvement, unspecified SLE type; Long-term use of Plaquenil Social History Tobacco Use Types Packs/Day Years [...] on file documented as of this encounter Plan of Treatment Upcoming Encounters Date Type Department Care Team (Late st Contact Info) Description 06/29/2025 4:30 PM EST Telemedicine [facility] Rheumatology [address] [place] [address] Vilma Garcia MD [address] [facility], [address] [place] [address] [email or web address] documented as of this encounter Procedures Procedure Name Priority Date/Time Associated Diagnosis [...] unspecified SLE type Long-term use of Plaquenil documented in this encounter Results * Comprehensive metabolic panel (06/22/2025 1:00 PM EDT) Blood us Vilma Garcia MD LAB BLOOD ORDERABLES Fin al Result Performing Organization Address City/[facility] Co de Phone Number EXTERNAL NON-INTERFACED REF LAB * C-Reactive Protein (06/22/2025 12:59 PM EDT) Blood us Vilma Garcia MD LAB BLOOD ORDERABLES Fin al Result Performing Organization Address City/[facility]/ZIP Co de Phone Number EXTERNAL NON-INTERFACED REF LAB * Sedimentation rate (ESR) (06/22/2025 12:59 PM EDT) Blood Vilma Garcia MD LAB BLOOD ORDERABLES Fin al Result Performing Organization Address City/[facility] Co de Phone Number EXTERNAL NON-INTERFACED REF LAB * CBC and differential (06/22/2025 12:59 PM EDT) Blood Vilma Garcia MD LAB BLOOD ORDERABLES Fin al Result Performing Organization Address [facility] Co de Phone Number EXTERNAL NON-INTERFACED REF LAB documented in this encounter Visit Diagnoses Diagnosis Systemic lupus erythematosus with other organ involvement, unspecified SLE type Long-term use of Plaquenil documented in this encounter Care Teams Web Programmer Relationship Specialty Start Date End Date Deisy Pardo MD [address] [place] [phone] PCP - General 06/14/17 documented as of this encounter Additional Source Comments The information contained in this document represents components of the legal health record. It is not the complete legal health record.[facility]
--- OUTSIDE RECORDS SUMMARY | 2025-06-26 06:32 | XMS_ITS | Encounter Summary ---
Author Organization [facility] Address [address] [place] [address] [place] [phone] Phone Care Team Providers Care Air Conditioning Installer Name Role Phone Deisy Pardo MD Primary Care Provid er Reason for Visit * Reason Onset Date Comments Appointment 06/22/2025 Encounter Details Date Type Department Care Team (Late st Contact Info) Description 06/22/2025 Telephone [facility] [address] [place] [address] Maria Elena [email or web address] Appointment Social History Tobacco Use Types Packs/Day [...] as of this encounter Progress Notes * Nelli Gray MA - 06/25/2025 2:37 PM EDT Left message stating that appointment has been changed to virtual. * Maria Elena Frias - 06/22/2025 3:45 PM EDT Patient called in looking to see if the appointment on 06/29 can be a virtual visit due to a transportation problem. Please contact and advise. Central Support Ring Sorter (Please do not reply to this user; this inbox is not monitored.) Thank you. documented in this encounter Plan of Treatment Upcoming Encounters Date Type Department Care Team (Late st Contact Info) Description 06/29/2025 4:30 PM EST Telemedicine [facility] Rheumatology [address] [place] [address] Vilma Garcia MD [address] [facility], [address] [place] [address] [email or web address] documented as of this encounter Visit Diagnoses Not on filedocumented in this encounter Care Teams Air Conditioning Installer Relationship Specialty Start Date End Date Deisy Pardo MD [address] [place] [address] PCP - General 06/14/17 documented as of this encounter Additional Source Comments The information contained in this document represents components of the legal health record. It is not the complete legal health record.[facility]
[2025-06-26 07:56] LABS: Alanine Aminotransferase 16 U/L (0-31); Albumin Level 4.2 g/dL (3.5-5.0); Alkaline Phosphatase 65 U/L (39-117); Anion Gap 10 (12-20); Aspartate Amino Transferase 24 U/L (5-31); Blood Urea Nitrogen 17 mg/dL (9-16); Calcium 9.4 mg/dL (8.4-10.2); Carbon Dioxide 27 mmol/L (22-29); Chloride 109 mmol/L (96-108); Cholesterol 191 mg/dL (<200); Estimated Glomerular Filt Rate > 60; HDL Cholesterol 67 mg/dL (>40); Potassium 4.3 mmol/L (3.3-5.1); Sodium 142 mmol/L (135-145); Total Protein 7.3 g/dL (6.5-8.0); Triglycerides 60 mg/dL (<150)
== END 2025-06-26 06:31 | disposition home or self-care (01) ==
LOC: HO.LAB 06:30
PROVIDERS: PCP Internal Medicine; Visit Provider Internal Medicine
DX: Z00.00 Encounter for general adult medical examination without abnormal findings (principal); Z13.6 Encounter for screening for cardiovascular disorders
CPT/HCPCS: 36415; 80053; 80061